=== PATIENT | female | born 1990 | race Caucasian/White ===

== ENCOUNTER 2017-09-17 22:10 | Emergency (ER) | payer MEDICAID, SELFPAY ==
[2017-09-17 22:11] VITALS: BP 131/68; PULSE 106; RESP 16; TEMP 36.7; O2SAT 100; BMI 25.2
--- NOTE | 2017-09-17 22:26 | ED.VISSUMM ---
- ER Visit Summary Date of Service: 09/17/17 Chief Complaint: [] Hoarse voice History of Present Illness: The patient is a 27 F complaining of a hoarse voice for the last 3 weeks. Intermittent. She has had a dry cough. Positive sick contacts and smokes cigarettes denies associated symptoms Physical Examination: Vital signs reviewed General: Well-nourished well-developed Head: Normocephalic atraumatic Eyes: Pupils equal round and reactive to light extraocular movements intact ENT: TMs clear no hemotympanum no trauma Neck: Nontender full range of motion Cardiovascular: Regular rate rhythm no murmurs normal S1-S2 Respiratory: No distress clear to auscultation bilaterally chest nontender Abdomen: Soft nontender nondistended normal bowel sounds no masses Back: Nontender no CVA tenderness Extremities: Nontender active range of motion ?4 extremities no trauma Skin: Normal color no trauma Neuro alert oriented cranial nerves II through XII intact normal strength sensation reflexes Test Results: [] Emergency Department Course and Treatment: [] Patient has a viral laryngitis. All questions answered. She will use symptomatic management. This will have to run its course. I do not feel she needs labs or imaging. Will be discharged to follow-up. Treatment Plan: [] Disposition: [] Impression: [] Viral laryngitis This note was generated with [employer] dictation software. It may contain incorrect words, spelling, and punctuation that were not noted in review of the chart prior to signing ED Disposition - Plan for ED Patient: Chief Complaint: Other, Pain/Inj Referrals: Care Physician,No Primary [Primary Care Provider] -
--- NOTE | 2017-09-17 22:27 | ED.DEP ---
ED Disposition - Plan for ED Patient: Disposition: Home or Assisted Living Chief Complaint: Other, Pain/Inj Instructions: ED Laryngitis Referrals: Care Physician,No Primary [Primary Care Provider] - Niko Cagle DO [NON CLINICAL AFFILIATE] -
[2017-09-17 22:38] VITALS: RESP 18
== END 2017-09-17 22:38 | disposition home or self-care (01) ==
PROVIDERS: Emergency Provider Emergency Medicine
DX: J04.0 Acute laryngitis (principal); Z72.0 Tobacco use
CPT/HCPCS: 99282

== ENCOUNTER 2017-12-22 22:52 | Emergency (ER) | payer MEDICAID, SELFPAY ==
[2017-12-22 22:53] VITALS: BP 116/70; PULSE 94; RESP 18; TEMP 36.9; O2SAT 97; BMI 26.6
--- NOTE | 2017-12-23 00:03 | CT_ITS ---
STUDY: CT BRAIN WITHOUT CONTRAST REASON FOR EXAM: Female, 27 years old. Headache RADIATION DOSAGE (If Supplied By Facility): CTDIvol = ( 44.99 ) mGy, DLP = ( 779.24 ) mGycm TECHNIQUE: Transaxial CT imaging of the brain was performed without administration of intravenous contrast material. Individualized dose optimization techniques were used for this CT. COMPARISON: None. FINDINGS: There is RIGHT parietal scalp swelling. There is NO skull fracture. Normal size ventricles and extra-axial spaces for the patient's age. Normal white matter tracts of the cerebral hemispheres. Normal basal ganglia and thalami. Normal brainstem. Normal cerebellum. There is no intracranial hemorrhage. There are no findings of an acute ischemic infarction. Normal visualized paranasal sinuses. CT/Brain/Head without Contrast IMPRESSION: There is RIGHT parietal scalp swelling. There is NO skull fracture. There is NO intracranial hemorrhage. Electronically Signed: Pawan Dutta MD at 1:57 EDT , Service support ,
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
--- NOTE | 2017-12-23 00:04 | RAD_ITS ---
STUDY: X-RAY CHEST REASON FOR EXAM: Female, 27 years old. Chest pain TECHNIQUE: PA and lateral COMPARISON: 07/22/2013 FINDINGS: The lungs are clear and expanded. There is no demonstrated pleural abnormality. Normal size heart. Normal mediastinum and jared. Normal visualized pulmonary arteries. Normal visualized aortic arch and descending thoracic aorta. Normal visualized thoracic spine. Normal visualized ribs, clavicles, and shoulders. There is no demonstrated abnormality of the visualized soft tissue structures of the upper abdomen. RAD/Chest PA and Lateral IMPRESSION: Normal x-ray examination of the chest. Electronically Signed: Pawan Dutta MD at 1:24 EDT , Service support ,
[2017-12-23] MEDS: Ondansetron ODT 4 MG Tablet PO (01:02)
[2017-12-23] MEDS: Acetaminophen 500 MG Tablet 1000 MG PO (01:02)
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
--- NOTE | 2017-12-23 02:14 | ED.DEP ---
ED Disposition - Plan for ED Patient: Disposition: Home or Assisted Living Chief Complaint: General Illness Instructions: ED Contusion Soft Tissue Referrals: Ronn Machado MD [STAFF PHYSICIAN] - 1 Week if not improving Additional Instructions: Ice to all sore areas. Tylenol and Motrin for pain.
[2017-12-23 02:23] VITALS: BP 110/70; PULSE 90; RESP 14; O2SAT 98
--- NOTE | 2017-12-23 02:24 | ED.RN ---
pt given written and verbal discharge instructions and educated on care at home. pt verbalizes understanding and denies any further questions. work note given per dr. boswell. pt ambulates to mothers car without assistance.
== END 2017-12-23 02:26 | disposition home or self-care (01) ==
PROVIDERS: Emergency Provider Emergency Medicine
DX: S09.90XA Unspecified injury of head, initial encounter (principal); S20.222A Contusion of left back wall of thorax, initial encounter; S20.221A Contusion of right back wall of thorax, initial encounter; S20.212A Contusion of left front wall of thorax, initial encounter; S20.211A Contusion of right front wall of thorax, initial encounter; Y09 Assault by unspecified means; Y93.9 Activity, unspecified; Y92.096 Garden or yard of other non-institutional residence as the place of occurrence of the external cause; Y99.9 Unspecified external cause status; Z72.0 Tobacco use
CPT/HCPCS: 70450; 71046; 72125; 99283; J2405

== ENCOUNTER 2018-09-06 20:31 | Emergency (ER) | payer MEDICAID, SELFPAY ==
[2018-09-06 20:32] VITALS: BP 115/72; PULSE 105; RESP 18; TEMP 36.8; O2SAT 97; BMI 27.8
--- NOTE | 2018-09-06 20:48 | ED.VISSUMM ---
- ER Visit Summary Date of Service: 09/06/18 Chief Complaint: Abscess History of Present Illness: The patient is a 28 F with a lump in her right axilla for 2 days. Physical Examination: Area is 1 cm x 3 cm, tender to palpation, erythematous. Test Results: None performed Emergency Department Course and Treatment: Area was anesthetized. I&D performed. Patient treated with Bactrim. Follow-up with primary care. Treatment Plan: As above Disposition: Discharge Impression: 1. Right axilla abscess This note was generated with [employer] dictation software. It may contain incorrect words, spelling, and punctuation that were not noted in review of the chart prior to signing ED Disposition - Plan for ED Patient: Referrals: Care Physician,No Primary [Primary Care Provider] -
[2018-09-06] MEDS: Smz/Tmp Ds Tablet 1 TABLET PO (20:55)
--- NOTE | 2018-09-06 21:32 | ED.DEP ---
ED Disposition - Plan for ED Patient: Instructions: ED Abscess IandD Prescriptions: Smz/Tmp Ds [Bactrim Ds] 1 tab PO BID 7 Days #14 tab Referrals: Angelica Ni [NON-STAFF] -
--- NOTE | 2018-09-06 21:55 | ED.RN ---
DISCHARGE INSTRUCTIONS GIVEN TO AND REVIEWED WITH PATIENT, PATIENT DENIES QUESTIONS OR CONCERNS AND VOICES UNDERSTANDING OF DISCHARGE INSTRUCTIONS. PT AMBULATES OUT OF ROOM WITHOUT DIFFICULTY.
== END 2018-09-06 21:56 | disposition home or self-care (01) ==
PROVIDERS: Emergency Provider Emergency Medicine
DX: L02.411 Cutaneous abscess of right axilla (principal)
CPT/HCPCS: 10060; 99283

== ENCOUNTER → 2018-10-28 17:33 | Outpatient (CLI) | payer MEDICAID, SELFPAY ==
[2018-10-28 20:01] LABS: Chlamydia Trachomatis by PCR Negative (Negative); Neisserai gonorrhoeae by PCR Negative (Negative); Probe Check PASS; Sample Adequacy Control PASS; Specimen Processing Control PASS
[2018-11-04 10:41] LABS: HPV HC, High Risk Positive (Negative); HPV Reflexed? YES, CHARGE PATIENT
== END ==
PROVIDERS: Visit Provider Obstetrics & Gynecology
DX: Z12.4 Encounter for screening for malignant neoplasm of cervix (principal); Z11.3 Encounter for screening for infections with a predominantly sexual mode of transmission
CPT/HCPCS: 87491; 87591; 87624; 88175; G0145

== ENCOUNTER → 2018-10-29 09:05 | Outpatient (CLI) | payer MEDICAID, SELFPAY | PROVIDERS: Referring Provider Obstetrics & Gynecology; Visit Provider Obstetrics & Gynecology | DX: Z12.4 Encounter for screening for malignant neoplasm of cervix (principal); Z11.3 Encounter for screening for infections with a predominantly sexual mode of transmission ==

== ENCOUNTER → 2019-05-12 16:55 | Outpatient (CLI) | payer MEDICAID, SELFPAY ==
[2019-05-20 12:55] LABS: Chlamydia By Nucleic Acid AMP Negative; Gonococcus By Nucleic Acid AMP Negative; HPV HC, High Risk Negative
== END ==
PROVIDERS: Referring Provider Obstetrics & Gynecology; Visit Provider Obstetrics & Gynecology
DX: R87.610 Atypical squamous cells of undetermined significance on cytologic smear of cervix (ASC-US) (principal); R87.810 Cervical high risk human papillomavirus (HPV) DNA test positive
CPT/HCPCS: 87491; 87591; 87623; 87624; 88175; G0145

== ENCOUNTER 2019-08-18 09:34 | Emergency (ER) | payer MEDICAID, SELFPAY ==
[2019-08-18 09:35] VITALS: BP 119/54; PULSE 82; RESP 18; TEMP 36.4; O2SAT 99; BMI 28.2
--- NOTE | 2019-08-18 10:04 | ED.DCSUM_ITS ---
- ER Visit Summary Date of Service: 08/18/19 Chief Complaint: [Skin feels like is burning] History of Present Illness: The patient is a 28 F [resents to the emergency department complaint of burning skin for the last 2 to 3 months. Patient was seen in urgent care today and referred to the ER. Patient also noticed a red rash on her arms and face that she thought was hives today. Patient denies any new soaps or detergents. She does not take any medications and is had no new medications. She denies any exposures to chemicals. She describes a mild sore throat. She is had no fevers. She denies illicit drug use. Patient has no medical history. Has had prior cholecystectomy and a tubal ligation. She currently does not have a primary care physician. 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 She states that she has been there for over a year and these issues just started happening a couple of months ago. Physical Examination: [HEENT-PERRLA, EOMI. Cranial nerves II through XII grossly intact. TMs clear. Mucous membranes moist. No adenopathy. No rashes or excoriations noted to the scalp. Cardiovascular-regular rate and rhythm without murmur or ectopy Lungs-clear to auscultation, chest wall stable without crepitus or subcu emphysema Abdomen-normoactive bowel sounds, soft, nontender, no rebound or rigidity, no peritoneal signs. Skin exam-patient has a faint slightly papular patchy rash involving the left upper extremity and face. The rash is not noted on the trunk or the lower extremities. Extremities-intact ?4, normal range of motion, normal pulses, atraumatic] Test Results: [CBC with differential obtained was normal. Chemistries unremarkable. LFTs were normal. TSH was 1.44. I did order a lead level however that is a send out and will have results for 3 to 5 days.] Emergency Department Course and Treatment: [She was treated with prednisone 40 mg p.o.] Treatment Plan: [She will be treated with prednisone and advised use Benadryl for itching. Patient to follow-up with dermatology within next 3 to 5 days. Etiology of her condition is unclear.] Disposition: [Discharged home in stable condition] Impression: [Dermatitis-etiology uncertain] This note was generated with [employer] dictation software. It may contain incorrect words, spelling, and punctuation that were not noted in review of the chart prior to signing ED Disposition - Plan for ED Patient: Referrals: Care Physician,No Primary [Primary Care Provider] -
[2019-08-18 10:05] LABS: Absolute Lymphocyte Count 1.78 X10^3/uL (0.83-4.51); Absolute Neutrophil Count 5.4 X10^3/uL (2.0-7.7); Basophil# 0.07 X10^3/uL; Basophil% 0.9 % (0-1); Eosinophil# 0.19 X10^3/uL; Eosinophils% 2.4 % (0-5); Hematocrit 41.4 % (37-47); Hemoglobin 13.6 g/dL (12.0-15.0); Lymphocyte # 1.78 X10^3/ul (4.0); Lymphocyte % 22.2 % (19-41); Mean Corp Hgb Conc 32.9 g/dL (32-36); Mean Corpuscular Hgb 30.6 pg (27.0-32.0); Mean Corpuscular Volume 93.2 fL (81-99); Mean Platelet Vol. 10.6 fl (6.2-12.0); Monocyte# 0.58 X10^3/uL; Monocyte% 7.2 % (0-10); NRBC Flagged by Analyzer 0 % (0-5); Neutrophil # 5.38 X10^3/uL (2.7-7.7); Neutrophil % 67.1 % (47-70); Platelet Count 226 K/mm3 (150-450); RBC Distribution Width CV 12.4 % (11.6-14.6); RBC Distribution Width SD 42.8 fl (35.1-43.9); Red Blood Count 4.44 M/mm3 (4.2-5.4)
[2019-08-18 10:30] LABS: ALB/GLOB Ratio 1.1 RATIO (0.9-2.4); AST(SGOT) 12 U/L (15-37); Alanine Aminotransfer ALT/SGPT 21 U/L (13-56); Albumin, Serum 3.9 g/dL (3.2-5.0); Alkaline Phosphatase 42 U/L (45-117); Anion Gap 5 (5-15); BUN 8 mg/dL (7-18); BUN/Creat Ratio 9.7 RATIO (10-20); Chloride 111 mmol/L (98-107); Creatinine, Serum 0.83 mg/dL (0.55-1.02); EST Glomerular Filtration Rate 87 mL/min (>60); Est Glom Filt Rate - Afr Amer 105 mL/min (>60); Globulin 3.4 g/dL (2.2-4.2); Glucose 92 mg/dL (74-106); Magnesium 1.9 mg/dL (1.6-2.6); Potassium 4.1 mmol/L (3.5-5.1); Protein, Total 7.3 g/dL (6.4-8.2); Sodium Level 140 mmol/L (136-145); Thyroid Stim Hormone (TSH) 1.44 uIU/mL (0.358-3.74)
--- NOTE | 2019-08-18 11:17 | ED.DEP ---
ED Disposition - Plan for ED Patient: Instructions: DERMATITIS, Non-Specific Prescriptions: Prednisone [Deltasone] 20 mg PO BID #10 tab Transmission Status: Pending to [facility] [place] Referrals: Care Physician,No Primary [Primary Care Provider] - Ellis Eugene MD [STAFF PHYSICIAN] - 3-5 Days
--- NOTE | 2019-08-18 11:36 | ED.RN ---
iv dc'ed, catheter intact, small gauze dressing placed. discharge instructions given to and reviewed with patient, patient denies questions or concerns and voices understanding of discharge instructions. pt ambulates out of room without difficulty.
[2019-08-19 20:20] LABS: Lead, Blood Adult 16+yrs 1 ug/dL (0-4)
== END 2019-08-18 11:36 | disposition home or self-care (01) ==
PROVIDERS: Emergency Provider Emergency Medicine
DX: L30.9 Dermatitis, unspecified (principal); Z90.49 Acquired absence of other specified parts of digestive tract; J02.9 Acute pharyngitis, unspecified
CPT/HCPCS: 80053; 83655; 83735; 84443; 85025; 96374; 99283; A4216

== ENCOUNTER 2020-06-29 08:27 | Emergency (ER) | payer MEDICAID, SELFPAY ==
[2020-06-29 08:28] VITALS: BP 120/79; PULSE 93; RESP 18; TEMP 36.6; O2SAT 98; BMI 25.0
--- NOTE | 2020-06-29 08:44 | CT_ITS ---
STUDY: CT ABDOMEN AND PELVIS WITH CONTRAST REASON FOR EXAM: Female, 29 years old. RT FLANK PAIN, VOMITING RADIATION DOSAGE (If Supplied By Facility): CTDIvol = ( 12.82 ) mGy, DLP = ( 772.94 ) mGycm TECHNIQUE: Transaxial images were obtained from the dome of the diaphragm to the symphysis pubis with oral contrast. Oral and amp; IV Gastrografin and amp; 100mL Isovue-300 was administered. Sagittal and coronal images were reconstructed. Individualized dose optimization techniques were used for this CT. COMPARISON: None. FINDINGS: There is a 4.3 mm noncalcified nodule in the peripheral lateral aspect of the left lower lobe as seen on axial image #5. A six-month follow-up examination is recommended. The visualized portions of the heart are within normal limits. Normal liver. Normal gallbladder and extrahepatic biliary system. Normal spleen. Normal pancreas. Normal bilateral adrenal glands. Normal right kidney. Normal left kidney. There is a small hiatal hernia. Normal small intestine. Normal colon. The appendix is visualized and appears normal. Normal abdominal aorta. Normal inferior vena cava. Normal retroperitoneum. Normal urinary bladder. Follicles are seen in both ovaries. There is a small umbilical hernia containing fat. Normal osseous structures. CT/Abdomen/Pelvis WITH Contrast IMPRESSION: 4.3 mm noncalcified nodule in the peripheral lateral aspect of the left lower lobe. A 12 month follow-up examination is recommended. Small umbilical hernia containing fat. Electronically Signed: Thompson Gagnon, at 11:04 EST , Service support ,
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
[2020-06-29 08:59] LABS: Bacteria 0 SEEN /hpf (None Seen); Mucous, Urine 0 SEEN /hpf (<or=2+); Red Blood Cells-Urine 0 SEEN /hpf (0-5); White Blood Cells 0 SEEN /hpf (0-5)
[2020-06-29 09:07] LABS: Color, Urine Yellow (Yellow); Glucose, Dipstick Normal (Normal); Ketone-Dipstick Negative (Negative); Leukocyte Esterase-Dipstick Negative /ul (Negative); Nitrite-Dipstick Negative (Negative); Occult Blood-Urine 10 /ul (Negative); Protein-Dipstick Negative (Negative); Specific Gravity, Urine 1.025 (1.002-1.030); Urine Bilirubin Dipstick Negative (Negative); Urine Clarity Clear (Clear); Urine Urobilinogen Normal (Normal)
[2020-06-29 09:08] LABS: Absolute Lymphocyte Count 2.27 X10^3/uL (0.83-4.51); Absolute Neutrophil Count 6.7 X10^3/uL (2.0-7.7); Basophil# 0.06 X10^3/uL; Basophil% 0.6 % (0-1); Eosinophil# 0.27 X10^3/uL; Eosinophils% 2.7 % (0-5); Hematocrit 42.3 % (37-47); Hemoglobin 14.2 g/dL (12.0-15.0); Lymphocyte # 2.27 X10^3/ul (4.0); Lymphocyte % 22.8 % (19-41); Mean Corp Hgb Conc 33.6 g/dL (32-36); Mean Corpuscular Hgb 31.6 pg (27.0-32.0); Mean Corpuscular Volume 94.2 fL (81-99); Mean Platelet Vol. 10.6 fl (6.2-12.0); Monocyte# 0.61 X10^3/uL; Monocyte% 6.1 % (0-10); NRBC Flagged by Analyzer 0 % (0-5); Neutrophil # 6.72 X10^3/uL (2.7-7.7); Neutrophil % 67.5 % (47-70); Platelet Count 245 K/mm3 (150-450); RBC Distribution Width CV 12.4 % (11.6-14.6); Red Blood Count 4.49 M/mm3 (4.2-5.4)
[2020-06-29 09:14] LABS: Squamous Epithelial Cells - UA 0-5 SEEN /hpf (5-10)
[2020-06-29] MEDS: 0.9% Normal Saline 1,000 ML 125 ML IV (09:14)
[2020-06-29 09:22] LABS: ALB/GLOB Ratio 1.2 RATIO (0.9-2.4); AST(SGOT) 17 U/L (15-37); Alanine Aminotransfer ALT/SGPT 31 U/L (13-56); Alkaline Phosphatase 42 U/L (45-117); Anion Gap 7 (5-15); BUN 12 mg/dL (7-18); BUN/Creat Ratio 13.9 RATIO (10-20); Calcium,Total 8.7 mg/dL (8.5-10.1); Chloride 109 mmol/L (98-107); Creatinine, Serum 0.87 mg/dL (0.55-1.02); EST Glomerular Filtration Rate 82 mL/min (>60); Est Glom Filt Rate - Afr Amer 99 mL/min (>60); Estimated Creatinine Clearance 85.85 ml/min; Globulin 3.3 g/dL (2.2-4.2); Glucose 92 mg/dL (74-106); Potassium 3.8 mmol/L (3.5-5.1); Protein, Total 7.3 g/dL (6.4-8.2); Sodium Level 139 mmol/L (136-145)
[2020-06-29 09:36] LABS: Internal QC Validated? YES +Cl - CLEAR BKGD; Pregnancy, Serum, hCG Quali. NEGATIVE Negative
[2020-06-29 09:44] LABS: Lactic Acid 0.7 mmol/L (0.4-1.9)
--- NOTE | 2020-06-29 11:14 | CM.ED ---
Social Work Consult: No PCP Met with patient in room. Introduced self and social director role. Patient agreeable to speak with this social director. Patient confirms to not have a PCP. Patient open to this social director providing patient with list of PCP's that are in-network with patient insurance. Patient denies any community needs/concerns. Patient reports I am busy. Patient states to be a single mom of two children (11 and 4). Patient denies any transportation concerns. Luis Alberto JACOBSON, HANNAH-S
--- NOTE | 2020-06-29 11:22 | ED.DEP ---
ED Disposition - Plan for ED Patient: Instructions: ED Abdominal Pain Unkn Cause Fem Referrals: Care Physician,No Primary [Primary Care Provider] - Additional Instructions: see your commissioning editor in 2-3 days You need a repeat CT of chest in one month to evaluate spot on lung
[2020-06-29 11:40] VITALS: RESP 17
== END 2020-06-29 11:42 | disposition home or self-care (01) ==
LOC: ED 09:34
PROVIDERS: Emergency Provider Emergency Medicine
DX: R10.9 Unspecified abdominal pain (principal); Z90.49 Acquired absence of other specified parts of digestive tract; Z72.0 Tobacco use
CPT/HCPCS: 74177; 80053; 81001; 83605; 84703; 85025; 96360; 96361; 99282; J7030; Q9967; A4216

== ENCOUNTER 2020-07-22 09:46 | Outpatient (RCR) | payer MEDICAID, SELFPAY ==
[2020-07-22 10:21] VITALS: BP 124/63; PULSE 74; TEMP 36.2; BMI 25.0
--- NOTE | 2020-07-22 11:52 | HP.PCM_ITS ---
(1) Ulcer of skin of breast Status: Acute Code(s): N61.1 - Abscess of the breast and nipple (2) Non-healing surgical wound Status: Acute Code(s): T81.89XA - Other complications of procedures, not elsewhere classified, initial encounter History of Present Illness Date of Service: 07/22/20 Chief Complaint: Left breast ulcer History of Wound: Patient reports to the wound healing center today, 07/22/2020, for an initial evaluation of a left breast ulcer. The patient has no significant past medical history. She is a former smoker. She states that about 3-1/2 weeks ago, she developed an abscess of her left breast, above the nipple. The abscess was red, warm, and tender. She was given a course of Bactrim, which she completed, but no improvement was noted in the abscess. 2 weeks ago, she underwent an I&D with Dr. Gotti. Following her I&D, no additional antibiotics were initiated. She was instructed to cleanse the left breast with soap and water and cover with gauze dressing. She was instructed not to wear a bra or perform any heavy lifting. She has been compliant with these orders. She has been off work since the I&D was performed 2 weeks ago. 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 The patient denies any fever, chills, nausea, vomiting, or diarrhea. She denies any increasing pain, redness, swelling, or purulent/malodorous drainage from affected area. Past Medical History Past Medical History: Chronic Problems (Last Updated 04/18/18 @ 17:01 by Eliza Mayes) GERD (gastroesophageal reflux disease) (Chronic) Surgical History: no surgical history Allergies/Adverse Reactions: Allergies meperidine HCl [From Demerol] Allergy (Verified 06/29/20 08:30) Low blood pressure Home Medications: Ambulatory Orders Medication Instructions Recorded NK 06/29/20 Smoking Status: Former smoker Review of Systems Constitutional: Denies: Chills, Fever, Malaise, Weakness, Fatigue Eyes: Denies: Pain, Vision Change HEENT: Denies: Difficulty Hearing, Difficulty Swallowing, Sinus Congestion Cardiovascular: Denies: Chest Pain, Palpitations Respiratory: Denies: Cough, Shortness of Breath Gastrointestinal: Denies: Diarrhea, Nausea, Vomiting Genitourinary: Denies: Dysuria, Hematuria Gynecological: Reports: Breast symptoms Musculoskeletal: Denies: Arm Pain, Muscle pain Skin: Reports: Wounds. Denies: Rash Neurological: Denies: Balance problems, Double vision, Slurred speech, Confusion Endocrine: Denies: Heat/ Cold Intolerance, Polydipsia, Polyuria Hematologic/ Lymphatic: Denies: Easy Bruising, Easy Bleeding - Physical Exam Vital Signs Temp Pulse BP 97.2 F L 74 124/63 H 07/22/20 10:21 07/22/20 10:21 07/22/20 10:21 General: Alert, Cooperative, No apparent distress HEENT: Atraumatic, Normocephalic Oral: Moist Mucosa Neck: Supple, Trachea Midline Lungs: Clear to auscultation, Normal air movement, No rhonchi, No wheeze, No rales Cardiovascular: Regular rate, Regular Rhythm Abdomen: Bowel Sounds Present, Soft, Non Tender, Non-Distended Extremities: No clubbing, No cyanosis, No edema, Capillary Refill Less than 3 Seconds Skin: Ulcer/ Wound - Ulcer of left breast subcutaneous layer exposed. Minimal slough and devitalized tissue present. Good granulation tissue is present. No periulcer erythema, warmth, tenderness to touch. No purulent/malodorous drainage. Wound Measurements and Assessment WC - Nurse 1 - General Ulcer Measurement Start: 07/22/20 10:21 Freq: Status: Active Protocol: Activity Type Activity Date Activity User E-Sign Co-Sign Detail Recorded Client Recorded Date Recorded By Document 07/22/20 10:21 ANDREA [id number] 07/22/20 10:38 ANDREA 07/22/20 10:21 Wound Center Nurse 1 [Ulcer Assessment] # 1 Left Breast -Current Size (cm) - Length 2.1 -Current Size (cm) - Width 5.4 -Current Size (cm) - Depth 0.2 -Total Square Cm 11.34 -Exudate Amt Medium -Exudate Type Serosanguineous -Wound Margin Distinct, Outline Attached -Granulation Amt Large (67-100%) -Granulation Quality Red -Texture (Pooja-wound Skin Appearance) Assessed, Scarring -Moisture (Pooja-wound Skin Appearance No Abnormality, ) Assessed -Color (Pooja-wound Skin Appearance) No Abnormality, Assessed -Temperature (Pooja-wound Skin No Abnormality Appearance) (Pt Warm) -Tenderness on Palpation (Pooja-wound No Skin Appearance) -Ulcer Cleansing Rinsed/ Irrigated with Saline -Foul Odor after Cleansing No -Anesthetic Used 4% Lidocaine Solution - Nurse 3 - General Ulcer D/C NN Start: 07/22/20 10:21 Freq: Status: Active Protocol: Activity Type Activity Date Activity User E-Sign Co-Sign Detail Recorded Client Recorded Date Recorded By Document 07/22/20 11:08 MS [id number] 07/22/20 11:12 MS 07/22/20 11:08 Wound Care Nurse 3 [Wound Dressing] -Ulcer Cleansing Rinsed/ Irrigated with Saline -Foul Odor after Cleansing No -Negative Pressure Wound Therapy N/A -Primary Dressing Applied Aquacel AG 4x4 -Primary Dressing Covered/Secured Dry Gauze with -Aquacel AG 4x4 1 Pain Scale: 0-10 Numeric [Pain] -Is Patient Pain Free? Yes - Visit Discharge [Visit Discharge Information] -Discharge Condition Stable -Ambulatory Status Ambulatory -Medication Reconcilliation completed No & provided to patient/care provider -Clinical Summary of Care Provided Yes Musculoskeletal: No Muscle Wasting Neurological: Cranial nerves II-XII grossly intact Psych/Mental Status: Normal Affect, Appropriate Debridement Note Post-Debridement Measurements/Treatment - Nurse 3 - General Ulcer D/C NN Start: 07/22/20 10:21 Freq: Status: Active Protocol: Activity Type Activity Date Activity User E-Sign Co-Sign Detail Recorded Client Recorded Date Recorded By Document 07/22/20 11:08 MS [id number] 07/22/20 11:12 MS 07/22/20 11:08 Wound Care Nurse 3 # 1 Left Breast -Ulcer Cleansing Rinsed/ Irrigated with Saline -Foul Odor after Cleansing No -Negative Pressure Wound Therapy N/A -Primary Dressing Applied Aquacel AG 4x4 -Primary Dressing Covered/Secured with Dry Gauze -Aquacel AG 4x4 1 Pain Scale: 0-10 Numeric Is Patient Pain Free? Yes WC - Visit Discharge Discharge Condition Stable Ambulatory Status Ambulatory Medication Reconcilliation completed & No provided to patient/care provider Clinical Summary of Care Provided Yes Wound debrided: Left breast Laterality: Left Type of Debridement: Excisional debridement Anesthesia Used: 4% Lidocaine Solution Depth: in the subcutaneous layer Percentage of wound debrided: 100 Instrument Used: 5mm curette Tissue Removed: Slough and devitalized tissue Severity: Fat Layer Exposed Amount of bleeding with debridement: Moderate Bleeding Controlled with: Compression and gauze Patient tolerated procedure well Assessment/Plan Active Problems (Last Updated 04/18/18 @ 17:01 by Eliza Mayes) Ulcer of skin of breast (Acute) Non-healing surgical wound (Acute) Assessment: See above Plan: Debridement performed today in clinic. Aquacel Ag applied. At home wound-care instructions: Cleanse the left breast ulcer daily with antibacterial soap and water. Apply a new Aquacel Ag dressing after cleansing. Change dressing more frequently if contaminated. Compression: The patient instructed to wear a light compression sports bra, to avoid friction of breast ulcer against her clothing. Instructed to pad the sports bra with an ABD pad for adde d protection. Diet: Patient encouraged to increase protein and vitamin C intake. Labs/cultures/imaging: Cultures ordered and collected today. Routine baseline labwork ordered. Follow-up: Return to clinic in 1 week for re- evaluation. Return sooner or report to the emergency room should symptoms worsen, or new symptoms arise. The patient was given a work excuse to be off from work until her next appointment at the wound center next week. We will reassess her ability to return to work at her next appointment. Office Visits / Consults: [id number] OV L4 New [id number]: [id number] Jessie subq tissue 20 sq cm/<
== END 2020-07-24 23:59 ==
LOC: WC 09:46
PROVIDERS: Referring Provider Surgery; Visit Provider Nurse Practitioner Family
DX: T81.89XA Other complications of procedures, not elsewhere classified, initial encounter (principal); N61.1 Abscess of the breast and nipple; K21.9 Gastro-esophageal reflux disease without esophagitis; Z87.891 Personal history of nicotine dependence; Z88.5 Allergy status to narcotic agent
CPT/HCPCS: 11042; 87070; 87075; 87077; 87186; 87205; 99213; G0463

== ENCOUNTER 2020-08-19 09:15 | Outpatient (RCR) | payer MEDICAID, SELFPAY ==
[2020-07-25 00:41] VITALS: BP 124/63; PULSE 74; TEMP 36.2
[2020-08-05 10:33] VITALS: BP 108/60; PULSE 74; TEMP 36.2; BMI 25.0
--- NOTE | 2020-08-05 12:48 | PCM.WC.PN ---
(1) Non-healing surgical wound Status: Acute Code(s): T81.89XA - Other complications of procedures, not elsewhere classified, initial encounter (2) Ulcer of skin of breast Status: Acute Code(s): N61.1 - Abscess of the breast and nipple Type of Wound Date of Service: 08/05/20 Chief Complaint: Left breast ulcer History of Wound: Patient reports to the wound healing center today, 07/22/2020, for an initial evaluation of a left breast ulcer. The patient has no significant past medical history. She is a former smoker. She states that about 3-1/2 weeks ago, she developed an abscess of her left breast, above the nipple. The abscess was red, warm, and tender. She was given a course of Bactrim, which she completed, but no improvement was noted in the abscess. 2 weeks ago, she underwent an I&D with Dr. Gotti. Following her I&D, no additional antibiotics were initiated. She was instructed to cleanse the left breast with soap and water and cover with gauze dressing. She was instructed not to wear a bra or perform any heavy lifting. She has been compliant with these orders. She has been off work since the I&D was performed 2 weeks ago. 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 The patient denies any fever, chills, nausea, vomiting, or diarrhea. She denies any increasing pain, redness, swelling, or purulent/malodorous drainage from affected area. Progress of Wound: The patient's wound is significantly improved in size and appearance. She has been compliant with the use of Aquacel Ag dressing changes. The patient denies any fever, chills, nausea, vomiting, or diarrhea. Denies any increasing pain, redness, swelling, or purulent/malodorous drainage from affected area. She has resumed work. She is avoiding heavy lifting and overhead lifting due to pulling sensation at site of breast ulcer. She is chosen not to wear a lightly compressive bra due to friction. Wound cultures from 07/22/2020 were significant for 1+ Staphylococcus epidermidis and rare corynebacterium minutissimum, which I suspect represent contamination. Antibiotics were deferred. We will continue to monitor. - Physical Exam Vital Signs Temp Pulse BP 97.1 F L 74 108/60 08/05/20 10:33 08/05/20 10:33 08/05/20 10:33 General: Alert, Cooperative, No apparent distress Oral: Moist Mucosa Lungs: Normal air movement Extremities: Capillary Refill Less than 3 Seconds Skin: Ulcer/ Wound - Ulcer of left breast with subcutaneous layer exposed. Scant amount of slough and devitalized tissue present. Good granulation tissue is present. No periulcer erythema, warmth, or tenderness to touch. No purulent/malodorous drainage. Wound Measurements and Assessment WC - Nurse 1 - General Ulcer Measurement Start: 08/05/20 10:32 Freq: Status: Active Protocol: Activity Type Activity Date Activity User E-Sign Co-Sign Detail Recorded Client Recorded Date Recorded By Document 08/05/20 10:33 KR [id number] 08/05/20 10:38 KR 08/05/20 10:33 Wound Center Nurse 1 [Ulcer Assessment] # 1 Left Breast -Current Size (cm) - Length 0.5 -Current Size (cm) - Width 1 -Current Size (cm) - Depth 0.1 -Total Square Cm 0.5 -Exudate Amt Medium -Exudate Type Serosanguineous -Wound Margin Distinct, Outline Attached -Granulation Amt Small (1-33%) -Granulation Quality Red -Necrosis Amt None Present (0 %) -Texture (Pooja-wound Skin Appearance) Assessed, Scarring -Moisture (Pooja-wound Skin Appearance No Abnormality, ) Assessed -Color (Pooja-wound Skin Appearance) No Abnormality, Assessed -Temperature (Pooja-wound Skin No Abnormality Appearance) (Pt Warm) -Tenderness on Palpation (Pooja-wound No Skin Appearance) -Ulcer Cleansing Rinsed/ Irrigated with Saline -Foul Odor after Cleansing No -Anesthetic Used 4% Lidocaine Solution WC - Nurse 2 - General Ulcer CM Notes Start: 08/05/20 10:32 Freq: Status: Active Protocol: Activity Type Activity Date Activity User E-Sign Co-Sign Detail Recorded Client Recorded Date Recorded By Document 08/05/20 12:30 PL [id number] 08/05/20 12:31 PL 08/05/20 12:30 Wound Center Nurse 2 [Procedure/Treatment] -Time 11:08 -Correct Patient Yes -Correct Side, Site, Position Yes -Correct Procedure Yes -Procedure Performed Yes -Type of Procedure Debridement -Clinical Debridement Subcutaneous -Tissue Removed Subcutaneous -Post Debridement (cm) - Length 3.7 -Post Debridement (cm) - Width 0.5 -Post Debridement (cm) - Depth 0.2 -Total Square (Post) (cm) 1.85 -Area of Debridement (cm) - Length 3.7 -Area of Debridement (cm) - Width 0.5 -Total Square (Area) (cm) 1.85 -Tunneling No -Undermining/Tunneling No -Circular Undermining No -Wound/Ulcer Outcome Not Healed -Ulcer Cleansing Rinsed/ Irrigated with Saline -Foul Odor after Cleansing No -Bioengineered Tissue No -Debridement - Subq, 1st 20sq cm Yes [See Physician Procedure note for Specifics] Pain Scale: 0-10 Numeric [Pain] -Is Patient Pain Free? Yes - Nurse 3 - General Ulcer D/C NN Start: 08/05/20 10:32 Freq: Status: Active Protocol: Activity Type Activity Date Activity User E-Sign Co-Sign Detail Recorded Client Recorded Date Recorded By Document 08/05/20 11:36 ANDREA [id number] 08/05/20 11:37 ANDREA 08/05/20 11:36 Wound Care Nurse 3 [Wound Dressing] # 1 Left Breast -Ulcer Cleansing Rinsed/ Irrigated with Saline -Foul Odor after Cleansing No -Primary Dressing Applied Aquacel Extra -Primary Dressing Covered/Secured Dry Gauze, with Secured with Tape -Aquacel Extra 1 Pain Scale: 0-10 Numeric [Pain] -Is Patient Pain Free? Yes - Visit Discharge [Visit Discharge Information] -Discharge Condition Stable -Ambulatory Status Ambulatory -Transportation Private Auto Psych/Mental Status: Normal Affect, Appropriate Debridement Note Post-Debridement Measurements/Treatment - Nurse 2 - General Ulcer CM Notes Start: 08/05/20 10:32 Freq: Status: Active Protocol: Activity Type Activity Date Activity User E-Sign Co-Sign Detail Recorded Client Recorded Date Recorded By Document 08/05/20 12:30 HERNÁN [id number] 08/05/20 12:31 PL 08/05/20 12:30 Wound Center Nurse 2 # 1 Left Breast -Time 11:08 -Correct Patient Yes -Correct Side, Site, Position Yes -Correct Procedure Yes -Procedure Performed Yes -Type of Procedure Debridement -Clinical Debridement Subcutaneous -Tissue Removed Subcutaneous -Post Debridement (cm) - Length 3.7 -Post Debridement (cm) - Width 0.5 -Post Debridement (cm) - Depth 0.2 -Total Square (Post) (cm) 1.85 -Area of Debridement (cm) - Length 3.7 -Area of Debridement (cm) - Width 0.5 -Total Square (Area) (cm) 1.85 -Tunneling No -Undermining/Tunneling No -Circular Undermining No -Wound/Ulcer Outcome Not Healed -Ulcer Cleansing Rinsed/ Irrigated with Saline -Foul Odor after Cleansing No -Bioengineered Tissue No -Debridement - Subq, 1st 20sq cm Yes Pain Scale: 0-10 Numeric Is Patient Pain Free? Yes - Nurse 3 - General Ulcer D/C NN Start: 08/05/20 10:32 Freq: Status: Active Protocol: Activity Type Activity Date Activity User E-Sign Co-Sign Detail Recorded Client Recorded Date Recorded By Document 08/05/20 11:36 ANDREA [id number] 08/05/20 11:37 ANDREA 08/05/20 11:36 Wound Care Nurse 3 # 1 Left Breast -Ulcer Cleansing Rinsed/ Irrigated with Saline -Foul Odor after Cleansing No -Primary Dressing Applied Aquacel Extra -Primary Dressing Covered/Secured with Dry Gauze, Secured with Tape -Aquacel Extra 1 Pain Scale: 0-10 Numeric Is Patient Pain Free? Yes WC - Visit Discharge Discharge Condition Stable Ambulatory Status Ambulatory Transportation Private Auto Wound debrided: Left breast Laterality: Left Type of Debridement: Excisional debridement Anesthesia Used: 4% Lidocaine Solution Depth: in the subcutaneous layer Percentage of wound debrided: 100 Instrument Used: 3mm curette Tissue Removed: Slough and devitalized tissue Severity: Fat Layer Exposed Amount of bleeding with debridement: Mild Bleeding Controlled with: Compression and gauze Patient tolerated procedure well Assessment/Plan Assessment: See above Plan: Debridement performed today in clinic. Aquacel Ag applied. At home wound-care instructions: Cleanse the left breast ulcer daily with antibacterial soap and water. Apply a new Aquacel Ag dressing after cleansing. Change dressing more frequently if contaminated. Compression: The patient was previously instructed to wear a light compression sports bra, to avoid friction of breast ulcer against her clothing, but felt this caused more friction than not wearing a bra at all. She may continue to avoid wearing a bra. Diet: Patient encouraged to increase protein and vitamin C intake. Labs/cultures/imaging: Wound cultures from 07/22/2020 were significant for 1+ Staphylococcus epidermidis and rare corynebacterium minutissimum, which I suspect represent contamination. Antibiotics were deferred. We will continue to monitor. Follow-up: Return to clinic in 1 week for re-evaluation. Return sooner or report to the emergency room should symptoms worsen, or new symptoms arise. The patient was given a work excuse for today. She has resumed working. She has avoided overhead lifting and heavy lifting. I will have her continue to avoid lifting greater than 20 pounds and to avoid overhead lifting. Note: [employer] speech recognition shipping and receiving specialist software was used to create portions of this document. Sound-alike and misspelled words, as well as other shipping and receiving specialist errors may be contained in the documentation. [id number]: [id number] Jessie subq tissue 20 sq cm/<
--- NOTE | 2020-08-12 10:04 | PCM.WC.PN ---
(1) Non-healing surgical wound Status: Acute Code(s): T81.89XA - Other complications of procedures, not elsewhere classified, initial encounter (2) Ulcer of skin of breast Status: Acute Code(s): N61.1 - Abscess of the breast and nipple Type of Wound Date of Service: 08/12/20 Chief Complaint: Left breast ulcer History of Wound: Patient reports to the wound healing center today, 07/22/2020, for an initial evaluation of a left breast ulcer. The patient has no significant past medical history. She is a former smoker. She states that about 3-1/2 weeks ago, she developed an abscess of her left breast, above the nipple. The abscess was red, warm, and tender. She was given a course of Bactrim, which she completed, but no improvement was noted in the abscess. 2 weeks ago, she underwent an I&D with Dr. Gotti. Following her I&D, no additional antibiotics were initiated. She was instructed to cleanse the left breast with soap and water and cover with gauze dressing. She was instructed not to wear a bra or perform any heavy lifting. She has been compliant with these orders. She has been off work since the I&D was performed 2 weeks ago. 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 The patient denies any fever, chills, nausea, vomiting, or diarrhea. She denies any increasing pain, redness, swelling, or purulent/malodorous drainage from affected area. Progress of Wound: The patient's wound is again significantly improved in size and appearance. She has been compliant with the use of Aquacel Ag dressing changes. The patient denies any fever, chills, nausea, vomiting, or diarrhea. Denies any increasing pain, redness, swelling, or purulent/malodorous drainage from affected area. She has resumed work. She is avoiding heavy lifting and overhead lifting due to pulling sensation at site of breast ulcer. She has chosen not to wear a lightly compressive bra due to friction. This is reasonable. Wound cultures from 07/22/2020 were significant for 1+ Staphylococcus epidermidis and rare corynebacterium minutissimum, which I suspect represent contamination. Antibiotics were deferred. We will continue to monitor. - Physical Exam Vital Signs Temp Pulse BP 97.1 F L 74 108/60 08/05/20 10:33 08/05/20 10:33 08/05/20 10:33 General: Alert, Cooperative, No apparent distress HEENT: Atraumatic, Normocephalic Oral: Moist Mucosa Lungs: Normal air movement Skin: Ulcer/ Wound - Left breast ulcer with subcutaneous layer exposed. No periulcer erythema, warmth or tenderness. No purulent/malodorous drainage. Psych/Mental Status: Normal Affect, Appropriate Debridement Note Post-Debridement Measurements/Treatment WC - Nurse 2 - General Ulcer CM Notes Start: 08/05/20 10:32 Freq: Status: Active Protocol: Activity Type Activity Date Activity User E-Sign Co-Sign Detail Recorded Client Recorded Date Recorded By Document 08/05/20 12:30 PL [id number] 08/05/20 12:31 PL 08/05/20 12:30 Wound Center Nurse 2 # 1 Left Breast -Time 11:08 -Correct Patient Yes -Correct Side, Site, Position Yes -Correct Procedure Yes -Procedure Performed Yes -Type of Procedure Debridement -Clinical Debridement Subcutaneous -Tissue Removed Subcutaneous -Post Debridement (cm) - Length 3.7 -Post Debridement (cm) - Width 0.5 -Post Debridement (cm) - Depth 0.2 -Total Square (Post) (cm) 1.85 -Area of Debridement (cm) - Length 3.7 -Area of Debridement (cm) - Width 0.5 -Total Square (Area) (cm) 1.85 -Tunneling No -Undermining/Tunneling No -Circular Undermining No -Wound/Ulcer Outcome Not Healed -Ulcer Cleansing Rinsed/ Irrigated with Saline -Foul Odor after Cleansing No -Bioengineered Tissue No -Debridement - Subq, 1st 20sq cm Yes Pain Scale: 0-10 Numeric Is Patient Pain Free? Yes - Nurse 3 - General Ulcer D/C NN Start: 08/05/20 10:32 Freq: Status: Active Protocol: Activity Type Activity Date Activity User E-Sign Co-Sign Detail Recorded Client Recorded Date Recorded By Document 08/05/20 11:36 KR [id number] 08/05/20 11:37 KR 08/05/20 11:36 Wound Care Nurse 3 # 1 Left Breast -Ulcer Cleansing Rinsed/ Irrigated with Saline -Foul Odor after Cleansing No -Primary Dressing Applied Aquacel Extra -Primary Dressing Covered/Secured with Dry Gauze, Secured with Tape -Aquacel Extra 1 Pain Scale: 0-10 Numeric Is Patient Pain Free? Yes WC - Visit Discharge Discharge Condition Stable Ambulatory Status Ambulatory Transportation Private Auto Wound debrided: Left breast ulcer Laterality: Left Type of Debridement: Excisional debridement Anesthesia Used: 4% Lidocaine Solution Depth: in the subcutaneous layer Percentage of wound debrided: 100 Instrument Used: 3mm curette Tissue Removed: Slough and devitalized tissue Severity: Fat Layer Exposed Amount of bleeding with debridement: Mild Bleeding Controlled with: Pressure Patient tolerated procedure well Assessment/Plan Active Problems (Last Updated 04/18/18 @ 17:01 by Eliza Mayes) Ulcer of skin of breast (Acute) Non-healing surgical wound (Acute) Assessment: See above Plan: Debridement performed today in clinic. Promogran applied. At home wound-care instructions: Cleanse the left breast periulcer area daily with antibacterial soap and water. Apply a new Promogran dressing after cleansing. Compression: The patient was previously instructed to wear a light compression sports bra, to avoid friction of breast ulcer against her clothing, but felt this caused more friction than not wearing a bra at all. She may continue to avoid wearing a bra. Diet: Patient encouraged to increase protein and vitamin C intake. Labs/cultures/imaging: Wound cultures from 07/22/2020 were significant for 1+ Staphylococcus epidermidis and rare corynebacterium minutissimum, which I suspect represent contamination. Antibiotics were deferred. We will continue to monitor. Follow-up: Return to clinic in 1 week for re-evaluation. Return sooner or report to the emergency room should symptoms worsen, or new symptoms arise. The patient was given a work excuse for today. She has resumed working. She has avoided overhead lifting and heavy lifting. I will have her continue to avoid lifting greater than 20 pounds and to avoid overhead lifting. Note: [employer] speech recognition power hammer operator software was used to create portions of this document. Sound-alike and misspelled words, as well as other power hammer operator errors may be contained in the documentation. [id number]: [id number] Jessie subq tissue 20 sq cm/<
[2020-08-12 10:14] VITALS: BP 104/58; PULSE 86; RESP 17; TEMP 36.7; BMI 25.0
[2020-08-19 09:15] VITALS: BP 102/49; PULSE 74; TEMP 36.1; BMI 25.0
--- NOTE | 2020-08-19 11:38 | PN.PCM_ITS ---
(1) Non-healing surgical wound Status: Resolved Code(s): T81.89XA - Other complications of procedures, not elsewhere classified, initial encounter (2) Ulcer of skin of breast Status: Resolved Code(s): N61.1 - Abscess of the breast and nipple Type of Wound Date of Service: 08/19/20 Chief Complaint: Left breast ulcer History of Wound: Patient reports to the wound healing center today, 07/22/2020, for an initial evaluation of a left breast ulcer. The patient has no significant past medical history. She is a former smoker. She states that about 3-1/2 weeks ago, she developed an abscess of her left breast, above the nipple. The abscess was red, warm, and tender. She was given a course of Bactrim, which she completed, but no improvement was noted in the abscess. 2 weeks ago, she underwent an I&D with Dr. Gotti. Following her I&D, no additional antibiotics were initiated. She was instructed to cleanse the left breast with soap and water and cover with gauze dressing. She was instructed not to wear a bra or perform any heavy lifting. She has been compliant with these orders. She has been off work since the I&D was performed 2 weeks ago. 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 The patient denies any fever, chills, nausea, vomiting, or diarrhea. She denies any increasing pain, redness, swelling, or purulent/malodorous drainage from affected area. Progress of Wound: The patient's left breast ulcer is healed today (08/19/2020). The patient denies any fever, chills, nausea, vomiting, or diarrhea. Denies any increasing pain, redness, swelling, or drainage from affected area. She has resumed work. She is avoiding heavy lifting and overhead lifting due to pulling sensation at site of breast ulcer. She has chosen not to wear a lightly compressive bra due to friction. This is reasonable. Wound cultures from 07/22/2020 were significant for 1+ Staphylococcus epidermidis and rare corynebacterium minutissimum, which I suspect represent contamination. Antibiotics were deferred. - Physical Exam Vital Signs Temp Pulse Resp BP 97.0 F L 74 17 102/49 L 08/19/20 09:15 08/19/20 09:15 08/12/20 10:14 08/19/20 09:15 General: Alert, Cooperative, No apparent distress HEENT: Atraumatic, Normocephalic Oral: Moist Mucosa Neck: Trachea Midline Lungs: Normal air movement Extremities: Capillary Refill Less than 3 Seconds Skin: Ulcer/ Wound - Left breast ulcer healed today Wound Measurements and Assessment - Nurse 1 - General Ulcer Measurement Start: 08/05/20 10:32 Freq: Status: Discharge Protocol: Activity Type Activity Date Activity User E-Sign Co-Sign Detail Recorded Client Recorded Date Recorded By Document 08/19/20 09:15 KR [id number] 08/19/20 09:19 KR Edit Status 08/19/20 09:54 BKG DAEMON Active=>Discharge [facility] 08/19/20 09:54 BKG DAEMON 08/19/20 09:15 Wound Center Nurse 1 [Ulcer Assessment] # 1 Left Breast -Current Size (cm) - Length 0.1 -Current Size (cm) - Width 0.1 -Current Size (cm) - Depth 0.1 -Total Square Cm 0.01 -Exudate Amt None Present -Wound Margin Distinct, Outline Attached -Granulation Amt None Present (0 %) -Necrosis Amt None Present (0 %) -Texture (Pooja-wound Skin Appearance) Assessed, Scarring -Moisture (Pooja-wound Skin Appearance No Abnormality, ) Assessed -Color (Pooja-wound Skin Appearance) Assessed,Not Assessed -Temperature (Pooja-wound Skin No Abnormality Appearance) (Pt Warm) -Tenderness on Palpation (Pooja-wound No Skin Appearance) -Ulcer Cleansing Rinsed/ Irrigated with Saline -Foul Odor after Cleansing No -Anesthetic Used 4% Lidocaine Solution - Nurse 2 - General Ulcer CM Notes Start: 08/05/20 10:32 Freq: Status: Discharge Protocol: Activity Type Activity Date Activity User E-Sign Co-Sign Detail Recorded Client Recorded Date Recorded By Document 08/19/20 09:51 PL [id number] 08/19/20 09:52 PL Edit Status 08/19/20 09:54 BKG DAEMON Active=>Discharge [id number] 08/19/20 09:54 BKG DAEMON 08/19/20 09:51 Wound Center Nurse 2 [Procedure/Treatment] -Procedure Performed No -Wound/Ulcer Outcome Healed- Epithelialized [See Physician Procedure note for Specifics] Pain Scale: 0-10 Numeric [Pain] -Is Patient Pain Free? Yes - Nurse 3 - General Ulcer D/C NN Start: 08/05/20 10:32 Freq: Status: Discharge Protocol: Activity Type Activity Date Activity User E-Sign Co-Sign Detail Recorded Client Recorded Date Recorded By Document 08/19/20 09:50 KR [id number] 08/19/20 09:51 KR Edit Status 08/19/20 09:54 BKG DAEMON Active=>Discharge [id number] 08/19/20 09:54 BKG DAEMON 08/19/20 09:50 Wound Care Nurse 3 [Wound Dressing] # 1 Left Breast -Primary Dressing Applied C Hydrogel ($) -Primary Dressing Covered/Secured Dry Gauze, with Secured with Tape Pain Scale: 0-10 Numeric [Pain] -Is Patient Pain Free? Yes - Visit Discharge [Visit Discharge Information] -Discharge Condition Stable -Ambulatory Status Ambulatory -Transportation Private Auto Psych/Mental Status: Normal Affect, Appropriate Debridement Note Post-Debridement Measurements/Treatment WC - Nurse 2 - General Ulcer CM Notes Start: 08/05/20 10:32 Freq: Status: Discharge Protocol: Activity Type Activity Date Activity User E-Sign Co-Sign Detail Recorded Client Recorded Date Recorded By Document 08/05/20 12:30 PL [id number] 08/05/20 12:31 PL Document 08/12/20 14:54 PL [id number] 08/12/20 14:55 PL Document 08/19/20 09:51 PL [id number] 08/19/20 09:52 PL 08/05/20 08/12/20 08/19/20 12:30 14:54 09:51 Wound Center Nurse 2 # 1 Left Breast -Time 11:08 09:00 -Correct Patient Yes Yes -Correct Side, Site, Position Yes Yes -Correct Procedure Yes Yes -Procedure Performed Yes Yes No -Type of Procedure Debridement Debridement -Clinical Debridement Subcutaneous Subcutaneous -Tissue Removed Subcutaneous Subcutaneous -Post Debridement (cm) - Length 3.7 0.1 -Post Debridement (cm) - Width 0.5 0.1 -Post Debridement (cm) - Depth 0.2 0.3 -Total Square (Post) (cm) 1.85 0.01 -Area of Debridement (cm) - Length 3.7 0.1 -Area of Debridement (cm) - Width 0.5 0.1 -Total Square (Area) (cm) 1.85 0.01 -Tunneling No No -Undermining/Tunneling No No -Circular Undermining No No -Wound/Ulcer Outcome Not Healed Not Healed Healed- Epithelialized -Ulcer Cleansing Rinsed/ Rinsed/ Irrigated with Irrigated with Saline Saline -Foul Odor after Cleansing No No -Bioengineered Tissue No No -Debridement - Subq, 1st 20sq cm Yes Yes Pain Scale: 0-10 Numeric Is Patient Pain Free? Yes Yes Yes - Nurse 3 - General Ulcer D/C NN Start: 08/05/20 10:32 Freq: Status: Discharge Protocol: Activity Type Activity Date Activity User E-Sign Co-Sign Detail Recorded Client Recorded Date Recorded By Document 08/05/20 11:36 KR [id number] 08/05/20 11:37 KR Document 08/19/20 09:50 KR [id number] 08/19/20 09:51 KR 08/05/20 08/19/20 11:36 09:50 Wound Care Nurse 3 # 1 Left Breast -Ulcer Cleansing Rinsed/ Irrigated with Saline -Foul Odor after Cleansing No -Primary Dressing Applied Aquacel Extra C Hydrogel ($) -Primary Dressing Covered/Secured with Dry Gauze, Dry Gauze, Secured with Secured with Tape Tape -Aquacel Extra 1 Pain Scale: 0-10 Numeric Is Patient Pain Free? Yes Yes WC - Visit Discharge Discharge Condition Stable Stable Ambulatory Status Ambulatory Ambulatory Transportation Private Auto Private Auto No debridement was completed today Assessment/Plan Assessment: See above Plan: The patient's left breast ulcer is healed today. She was instructed to continue avoidance of lifting greater than 20 pounds and avoidance of overhead lifting for an additional 2 weeks before returning to regular work duties. If she is unable to tolerate return to regular work duties, she was instructed to contact the wound healing center for additional guidance. She was also instructed to wear a tightly compressive sports bra if engaging in intense physical activity. She was advised to avoid intense physical activity for the next 4 weeks. She was advised to perform daily massage of the scar tissue of her left breast to aid in healing of the scar. She was advised to follow-up with wound healing center as needed. Note: [employer] speech recognition t ranscription software was used to create portions of this document. Sound-alike and misspelled words, as well as other drone software development engineer errors may be contained in the documentation. Office Visits / Consults: [id number] OV L3 Est
== END 2020-08-19 09:54 | disposition home or self-care (01) ==
LOC: WC 09:15
PROVIDERS: Referring Provider Surgery; Visit Provider Nurse Practitioner Family
DX: T81.89XA Other complications of procedures, not elsewhere classified, initial encounter (principal); N61.1 Abscess of the breast and nipple; Z87.891 Personal history of nicotine dependence
CPT/HCPCS: 11042; 99213; G0463

== ENCOUNTER 2020-10-21 10:47 | Outpatient (RCR) | payer MEDICAID, SELFPAY ==
[2020-10-21 11:11] VITALS: BP 116/67; PULSE 101; TEMP 36.4; BMI 25.0
--- NOTE | 2020-10-21 15:12 | PCM.WC.HP ---
History of Present Illness Date of Service: 10/21/20 Chief Complaint: Left breast ulcer reopened History of Wound: Patient reports to the wound healing center today, 10/21/2020, for evaluation of a reopened left breast ulcer. The patient has no significant past medical history. She is a smoker. In June 2020, she developed an abscess of her left breast, above the nipple. The abscess was red, warm, and tender. She was given a course of Bactrim, which she completed, but no improvement was noted in the abscess. She underwent an I&D with Dr. Gotti and was referred to the wound healing center. Her wound healed quickly (approximately 1 month after initial evaluation at the wound healing center) and she was discharged from the wound healing center on 08/19/2020. She reports that the left breast developed a pinhole sized opening a few weeks following her discharge from the wound center. This quickly and spontaneously resolved. However, approximately 2 weeks ago the left breast reopened and she reports 2 episodes of copious amounts of yellow drainage from the left breast. The left breast has only had scant to small drainage in the past week. She denies purulent/malodorous drainage in the past week. She reports having a recent cold during which she has generally not felt well, but feels she is improving. She denies any warmth, tenderness, or rash of the left breast. She denies any nausea, vomiting, or diarrhea. She has been washing the left breast with antibacterial soap and water and covering with gauze. 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 She has also resumed exercising (weightlifting). She uses a tanning bed. She had previously quit smoking during the course of her wound treatment, but resumed smoking in July after her wound had healed. [facility] Medical History (Updated 10/21/20 @ 15:26 by Naz Welch NP, SENIOR INFORMATION SYSTEMS ARCHITECT-C) Stomach ulcer Home Medications NK 06/29/20 [History Last Taken Unknown] Allergy/AdvReac Type Severity Reaction Status Date / Time meperidine HCl [From Demerol] Allergy Low blood Verified 06/29/20 08:30 pressure Surgical History (Updated 07/22/20 @ 12:13 by Christen Cheuvront SENIOR INFORMATION SYSTEMS ARCHITECT, SENIOR INFORMATION SYSTEMS ARCHITECT-C) History of pancreatectomy History of tubal ligation Social History (Updated 04/18/18 @ 17:40 by Lorenzo PINTO, PA) Smoking Status: Former smoker alcohol intake: current alcohol intake frequency: a few times a week Alcohol type: beer ROS Constitutional Constitutional: Reports as per HPI Eyes Eyes: Denies change in vision or double vision ENT HEENT: Denies lip swelling or tongue swelling Cardiovascular Cardiovascular: Denies chest pain, leg edema or palpitations Respiratory/Chest Respiratory/Chest: Denies cough, shortness of breath at rest, shortness of breath with exertion or wheezing Gastrointestinal Gastrointestinal: Denies diarrhea, nausea or vomiting Genitourinary Genitourinary: Denies dysuria or hematuria Musculoskeletal Musculoskeletal: Denies abnormal gait, extremity pain, muscle weakness, numbness or tingling Integumentary Integumentary: Reports wounds; Denies rash Neurologic Neurologic: Denies abnormal gait, abnormal speech or focal weakness Endocrine Endocrinology: Denies cold intolerance, heat intolerance, polydipsia or polyuria Hematologic/Lymphatic Hematologic/Lymphatic: Denies easy bleeding or easy bruising Vital Signs Vital Signs Vital Signs: 10/21/20 11:11 Temperature 97.6 F L Temperature Source Temporal Pulse Rate 101 H Blood Pressure 116/67 Blood Pressure Mean 83 Blood Pressure Source Monitor Blood Pressure Position Sitting Blood Pressure Location Left Arm Physical Exam Const alert, no apparent distress and healthy appearing General Appearance: cooperative, comfortable and well kempt HEENT Head and Scalp: normocephalic and atraumatic Eyes EOMs intact bilaterally Neck supple and no JVD Chest Breast/Axilla Inspection: abnormal inspection of the breast erythema, scar and other (No abscess palpated; wound present- see below) Resp normal respiratory effort, normal air movement and no use of accessory muscles Auscultation: clear to auscultation bilaterally; Negative for crackles, rales, rhonchi or wheezes Cardio regular rate and regular rhythm GI normal to inspection, nondistended, normoactive bowel sounds Extremity normal capillary refill Skin General Skin Exam: scars healing (Left breast) Wounds: wounds noted No malodorous, No no odor, open and No surrounding erythema Wound Narrative: Left breast ulcer with tunneling at 9:00. No clinical signs of infection. No periulcer erythema, tenderness, swelling, or warmth. No purulent/malodorous drainage. No palpable abscess of the left breast. No drainage expressed from the left breast. Neuro oriented x3, moves all extremities and no focal motor deficits Psych mental status grossly normal, cooperative and affect normal Debridement Note Debridement Note Post-Debridement Measurements and Additional Note: Post-Debridement Measurements/Treatment - Nurse 2 - General Ulcer CM Notes Start: 10/21/20 11:11 Freq: Status: Active Protocol: Activity Type Activity Date Activity User E-Sign Co-Sign Detail Recorded Client Recorded Date Recorded By Document 10/21/20 13:58 PL [id number] 10/21/20 13:59 PL 10/21/20 13:58 Wound Center Nurse 2 #2 Left Breast -Time 12:03 -Correct Patient Yes -Correct Side, Site, Position Yes -Correct Procedure Yes -Procedure Performed Yes -Type of Procedure Debridement -Clinical Debridement Subcutaneous -Tissue Removed Subcutaneous -Post Debridement (cm) - Length 0.5 -Post Debridement (cm) - Width 1.0 -Post Debridement (cm) - Depth 0.3 -Total Square (Post) (cm) 0.50 -Area of Debridement (cm) - Length 0.5 -Area of Debridement (cm) - Width 1.0 -Total Square (Area) (cm) 0.50 -Tunneling No -Undermining/Tunneling No -Circular Undermining No -Wound/Ulcer Outcome Not Healed -Ulcer Cleansing Rinsed/ Irrigated with Saline -Foul Odor after Cleansing No -Bioengineered Tissue No -Bleeding Controlled with Pressure -Treatment Response Procedure Tolerated Well -Debridement - Subq, 1st 20sq cm Yes Pain Scale: 0-10 Numeric Is Patient Pain Free? Yes - Nurse 3 - General Ulcer D/C NN Start: 10/21/20 11:11 Freq: Status: Active Protocol: Activity Type Activity Date Activity User E-Sign Co-Sign Detail Recorded Client Recorded Date Recorded By Document 10/21/20 12:21 KR [id number] 10/21/20 12:22 KR 10/21/20 12:21 Wound Care Nurse 3 #2 Left Breast -Ulcer Cleansing Rinsed/ Irrigated with Saline -Primary Dressing Applied Promogran Gabi Matter -Primary Dressing Covered/Secured with Dry Gauze, Secured with Tape -Promogran Gabi Matter 1 Pain Scale: 0-10 Numeric Is Patient Pain Free? Yes - Visit Discharge Discharge Condition Stable Ambulatory Status Ambulatory Transportation Private Auto Wound debrided: Left breast ulcer Laterality: Left Type of Debridement: Excisional debridement Anesthesia Used: 4% Lidocaine Solution and Cetacaine Depth: in the subcutaneous layer Percentage of wound debrided: 100 Instrument Used: 3mm curette Tissue Removed: Slough and devitalized tissue Severity: Fat Layer Exposed Amount of bleeding with debridement: Moderate Bleeding Controlled with: Compression and gauze Patient tolerated procedure: Patient tolerated procedure well Assessment & Plan Assessment/Plan (1) Ulcer of skin of breast: Status: Resolved Code(s): N61.1 - Abscess of the breast and nipple (2) Non-healing surgical wound: Status: Resolved Code(s): T81.89XA - Other complications of procedures, not elsewhere classified, initial encounter Qualifiers: Encounter type: subsequent encounter Qualified Code(s): T81.89XD - Other complications of procedures, not elsewhere classified, subsequent encounter Plan: Debridement performed today in clinic as annotated above. Gabi applied. At home wound-care instructions: Change Gabi dressing once daily or more frequently as needed due to contamination. Wash wounds daily with antibacterial soap and water, rinse and dry thoroughly before each dressing change. The patient was instructed to avoid pressure and friction on the affected areas. Avoid wearing a bra or other clothing that tugs or rubs at the breast. Work restrictions were given. Patient is to limit work involving repetitive use of left arm or lifting of left arm above shoulder height. She was instructed not to lift/carry anything heavier than 20 pounds. She was advised to avoid tanning until her breast ulcer has healed. Diet: Patient encouraged to increase protein intake. Smoking: The risks of smoking and benefits of smoking cessation were discussed with the patient today. The patient is encouraged to quit smoking. If smoking cessation aids are desired, the patient should contact their primary care provider to discuss appropriate options. Labs/cultures/imaging: Cultures ordered and collected today. The need for antibiotics will be determined based on culture results. Patient did not wish to begin empiric treatment with antibiotics today. Follow-up: Return to clinic in 1 week for re-evaluation. Return sooner or report to the emergency room should symptoms worsen, or new symptoms arise. Note: [employer] speech recognition broadcast transmitter operator software was used to create portions of this document. Sound-alike and misspelled words, as well as other broadcast transmitter operator errors may be contained in the documentation. Charges/Coding Visit Charges Office Visits / Consults: 10448 OV L4 Est Procedures Integumentary [id number]: [id number] Jessie subq tissue 20 sq cm/<
== END 2020-10-21 23:59 ==
LOC: WC 10:47
PROVIDERS: Visit Provider Nurse Practitioner Family
DX: N61.1 Abscess of the breast and nipple (principal); T81.89XD Other complications of procedures, not elsewhere classified, subsequent encounter; Z87.891 Personal history of nicotine dependence; Z98.51 Tubal ligation status
CPT/HCPCS: 11042; 87070; 87075; 87205; 99213; G0463

== ENCOUNTER 2022-04-30 10:58 | Emergency (ER) | payer MEDICAID, SELFPAY ==
[2022-04-30 10:58] VITALS: BP 118/69; PULSE 67; RESP 16; TEMP 36.3; O2SAT 100; BMI 28.3
--- NOTE | 2022-04-30 11:22 | CT_ITS ---
HISTORY: epigastric pain, distension, vtg. TECHNIQUE: Helically acquired images were obtained of the abdomen and pelvis after the intravenous administration of 100mL Isovue-300. A radiation dose optimization technique was used for this scan. 394 images. COMPARISON: 06/29/2020. FINDINGS: LOWER CHEST: Stable 4 mm pleural-based left lower lobe nodule. BOWEL: Bowel including appendix nondilated. Moderate stool in the colon. PERITONEUM: No significant ascites. LIVER: No enhancing mass. GALLBLADDER/BILIARY TREE: Gallbladder absent. SPLEEN/PANCREAS: Homogeneous and nonenlarged. KIDNEYS/ADRENAL GLANDS: Unremarkable. VESSELS: No abdominal aortic aneurysm. PELVIC ORGANS: Unchanged appearance. BONES: Intact. CT/Abdomen/Pelvis W IV Cont ONLY IMPRESSION: No acute abnormality identified. Moderate stool in the colon. Stable 4 mm left lower lobe pulmonary nodule. Electronically Signed: Dee Hudson MD at 12:40 EST ,
--- NOTE | 2022-04-30 11:23 | EDS_ITS ---
HPI HPI - GI History of Present Illness Chief Complaint: Abd Pain Informant: patient Abdominal Pain/Flank Pain Onset: Weeks (1) Context: Gradual Onset Timing: Continuous and Waxes and wanes Quality: Aching and Sharp Location: - (Periumbilical) Current Severity: Moderate Maximum Severity: Moderate Worsened by: Food Relieved by: Nothing Nausea/Vomiting/Emesis GI Symptom: Positive for Nausea and Vomiting (Dry heaving only) Quality: Negative for Blood streaks, Coffee ground or Hematemesis Diarrhea/Melena/Hematochezia GI Symptom: Positive for Diarrhea Onset: Days (At the beginning of this but gone since) Stool Quality: Positive for Loose; Negative for Black, Maroon or BRB per rectum Severity: Mild Associated Symptoms Associated Symptoms: Negative for Dysuria, Frequency, Hematuria or Urgency Narrative Narrative: Patient has had abdominal pain and distention with meals for the past week. She states she has eaten hardly anything in the past 2 days but symptoms have not resolved, she try to eat a couple bites of food and within minutes, maybe 10 or 15, she was having recurrence of her periumbilical pain and bloating/distention. She has had dry heaves but no hematemesis or bright red blood per rectum or melena. She has a history of stomach ulcers that were diagnosed on EGD, but she states this was long ago and [facility] She does not take any PPI or H2 blockers on a daily basis now, but in the past when she had ulcers she was vomiting blood and having dark stools, none of that at this time. No fevers or chills. No contact with others with similar illness. No travel out of the area. No recent surgeries but she has had a prior tubal and cholecystectomy in the past. [facility] Medical History (Updated 04/30/22 @ 13:[address] Gee Greene MD) GERD (gastroesophageal reflux disease) Stomach ulcer Home Medications dicyclomine 10 mg capsule 20 mg PO Q6H PRN PRN abdominal discomfort #30 CAPSULES 04/30/22 [Rx Last Taken Unknown] pantoprazole 40 mg tablet,delayed release 40 mg PO DAILY #30 tabs 04/30/22 [Rx Last Taken Unknown] promethazine 25 mg tablet 25 mg PO Q6H PRN PRN Nausea #16 TABLETS 04/30/22 [Rx Last Taken Unknown] Allergy/AdvReac Type Severity Reaction Status Date / Time meperidine HCl [From Demerol] Allergy Low blood Verified 04/30/22 11:01 pressure Surgical History (Updated 04/30/22 @ 11:[address] Gee Greene MD) History of pancreatectomy History of tubal ligation S/P cholecystectomy Social History (Updated 04/18/18 @ 17:40 by Lorenzo PINTO, PA) Smoking Status: Current every day smoker tobacco type: cigarettes alcohol intake: current alcohol intake frequency: a few times a week Alcohol type: beer ROS ROS ED Constitutional Constitutional ED: Reports malaise; Denies chills or fever(s) Eyes Eyes: Denies change in vision or diplopia ENT ENT ED: Denies rhinorrhea or sore throat Cardiovascular Cardiovascular: Denies chest pain or palpitations Respiratory/Chest Respiratory/Chest: Denies cough or dyspnea Gastrointestinal Gastrointestinal: Reports as per HPI, abdominal pain, bloating, diarrhea, nausea and vomiting; Denies hematemesis, hematochezia or melena Genitourinary Genitourinary ED: Denies dysuria or hematuria Musculoskeletal Musculoskeletal: Denies back pain or neck pain Integumentary Denies abscess or rash Neurologic Neurologic: Denies headache(s), paresthesias or weakness Psychiatric Psychiatric: Denies anxiety or suicidal thoughts EXAM Physical Exam Const Vital Signs: 04/30/22 10:58 04/30/22 13:18 Temperature 97.4 F L Temperature Source Temporal Pulse Rate 67 69 Respiratory Rate 16 18 Blood Pressure 118/69 Blood Pressure Mean 85 Pulse Ox 100 98 Oxygen Delivery Method Room Air Room Air Positive well nourished and well developed General Appearance ED: well developed and NAD HEENT Reports moist mucous membranes normocephalic and atraumatic Eyes PERRL and EOMs intact bilaterally Neck full ROM and supple Resp normal respiratory effort and clear to auscultation bilaterally Cardio regular rate, regular rhythm and no murmurs Rate: Negative for tachycardic GI GI Narrative: Mild diffuse distention. Tender periumbilical and epigastrium, otherwise nontender. No guarding or rebound tenderness. No palpable hernias or masses. Auscultation: normoactive bowel sounds Palpation: soft Back/Spine no CVA tenderness General Back: other FROM Extremity normal to inspection General Extremety ED: Negative for edema, pulses abnormal or tenderness General Extremity: Negative for edema or pulses abnormal Neuro oriented x3, CN's II-XII intact bilaterally, no sensory deficits noted and gait normal Sensorium / Orientation: awake and alert Motor Exam: strength 5/5 throughout Psych mental status grossly normal and thought process normal Skin no rashes or lesions noted and no wounds MDM MDM MDM Narrative Medical decision making narrative: Patient's work-up including a CT of the abdomen/pelvis with IV contrast was essentially unremarkable. Her labs are all normal. She was given Mylanta with simethicone and Bentyl along with some IV fluids and Zofran, she had some mild improvement but still having some cramping which I will treat her with Toradol for as well. Her vital signs are normal. On further discussion she states she has diarrhea [id number] with normal stools for a week at a time, more chronically than these symptoms. She may have irritable bowel or inflammatory bowel disease. She has not followed up with GI or PCP for this, I am referring her to both been prescribing her medications for the symptoms. She is comfortable with that plan. Lab Data Attestation: I reviewed the patient's lab results. Labs: Laboratory Results - last 24 hr 04/30/22 04/30/22 04/30/22 11:13 11:13 11:13 WBC 6.8 RBC 4.45 Hgb 14.6 Hct 43.1 MCV 96.9 MCH 32.8 H MCHC 33.9 RDW Std Deviation 43.5 RDW Coeff of Cathleen 12.1 Plt Count 263 MPV 11.1 Immature Gran % (Auto) 0.100 Neut % (Auto) 61.8 Lymph % (Auto) 29.4 George % (Auto) 6.2 Eos % (Auto) 1.9 Baso % (Auto) 0.6 Absolute Neuts (auto) 4.2 Absolute Lymphs (auto) 1.99 Nucleated RBC % 0 Sodium 138 Potassium 3.9 Chloride 107 Carbon Dioxide 25.0 Anion Gap 6 BUN 9 Creatinine 0.81 Estim Creat Clear Calc 86.90 Est GFR (MDRD) Af Amer 106 Est GFR (MDRD) Non-Af 87 BUN/Creatinine Ratio 11.1 Glucose 92 Calcium 9.0 Total Bilirubin 0.50 AST 14 L ALT 25 Alkaline Phosphatase 49 Total Protein 7.6 Albumin 4.2 Globulin 3.4 Albumin/Globulin Ratio 1.2 Lipase 82 Serum , Qual NEGATIVE Radiography Diagnostic Testing: Clinical Impression(s) from Imaging Studies Abdomen/Pelvis CT 04/30/22 11:22 IMPRESSION: No acute abnormality identified. Moderate stool in the colon. Stable 4 mm left lower lobe pulmonary nodule. Electronically Signed: Dee Hudson MD at 12:40 EST Reading Location ID and State: [facility] / MD Tel , Service support , Discharge Plan Triage Chief Complaint: Abd Pain ED Provider: Gee Greene Dx/Rx/DC Orders Clinical Impression: Periumbilical abdominal pain, Abdominal bloating with cramps, Intermittent diarrhea Instructions: ED Abdominal Pain Unkn Cause Fem Prescriptions: New dicyclomine 10 MG capsule 20 mg PO Q6H PRN PRN (Reason: abdominal discomfort) Qty: 30 0RF pantoprazole 40 mg tablet,delayed release (DR/EC) 40 mg PO DAILY Qty: 30 0RF promethazine [promethazine] 25 MG tablet 25 mg PO Q6H PRN PRN (Reason: Nausea) Qty: 16 0RF Primary Care Provider: Care Physician,No Primary Referrals: Edith Chery MD [Med Staff - Clinical Nurse Reviewer] - 1-2 Weeks (for primary care) Herberth Wild DO [Med Staff - Active Staff] - As soon as possible Disposition Disposition: Home, Self Care
[2022-04-30] MEDS: Mag Hydrox/Al Hydrox/Simeth 30 ML UDC PO (11:31)
[2022-04-30] MEDS: Ondansetron 4 MG/2 ML Vial IV (11:31)
[2022-04-30] MEDS: 0.9% Normal Saline 1,000 ML 1000 ML IV (11:31)
[2022-04-30 11:41] LABS: Absolute Lymphocyte Count 1.99 X10^3/uL (0.83-4.51); Absolute Neutrophil Count 4.2 X10^3/uL (2.0-7.7); Basophil# 0.04 X10^3/uL; Basophil% 0.6 % (0-1); Eosinophil# 0.13 X10^3/uL; Eosinophils% 1.9 % (0-5); Hematocrit 43.1 % (37-47); Hemoglobin 14.6 g/dL (12.0-15.0); Lymphocyte # 1.99 X10^3/ul (0.83-4.51); Lymphocyte % 29.4 % (19-41); Mean Corp Hgb Conc 33.9 g/dL (32-36); Mean Corpuscular Hgb 32.8 pg (27.0-32.0); Mean Corpuscular Volume 96.9 fL (81-99); Mean Platelet Vol. 11.1 fl (6.2-12.0); Monocyte# 0.42 X10^3/uL; Monocyte% 6.2 % (0-10); NRBC Flagged by Analyzer 0 % (0-5); Neutrophil # 4.17 X10^3/uL (2.7-7.7); Neutrophil % 61.8 % (47-70); Platelet Count 263 K/mm3 (150-450); RBC Distribution Width CV 12.1 % (11.6-14.6); RBC Distribution Width SD 43.5 fl (35.1-43.9); Red Blood Count 4.45 M/mm3 (4.2-5.4); White Blood Count 6.8 K/mm3 (4.4-11.0)
[2022-04-30 11:58] LABS: ALB/GLOB Ratio 1.2 RATIO (0.9-2.4); AST(SGOT) 14 U/L (15-37); Alanine Aminotransfer ALT/SGPT 25 U/L (13-56); Albumin, Serum 4.2 g/dL (3.2-5.0); Alkaline Phosphatase 49 U/L (45-117); Anion Gap 6 (5-15); BUN 9 mg/dL (7-18); BUN/Creat Ratio 11.1 RATIO (10-20); Chloride 107 mmol/L (98-107); Creatinine, Serum 0.81 mg/dL (0.55-1.02); EST Glomerular Filtration Rate 87 mL/min (>60); Est Glom Filt Rate - Afr Amer 106 mL/min (>60); Globulin 3.4 g/dL (2.2-4.2); Glucose 92 mg/dL (74-106); Lipase 82 U/L (73-393); Potassium 3.9 mmol/L (3.5-5.1); Protein, Total 7.6 g/dL (6.4-8.2); Sodium Level 138 mmol/L (136-145)
[2022-04-30 12:01] LABS: Internal QC Validated? YES +Cl - CLEAR BKGD; Pregnancy, Serum, hCG Quali. NEGATIVE Negative
[2022-04-30 13:18] VITALS: PULSE 69; RESP 18; O2SAT 98
== END 2022-04-30 13:37 | disposition home or self-care (01) ==
PROVIDERS: Emergency Provider Emergency Medicine; Visit Provider Emergency Medicine
DX: R10.33 Periumbilical pain (principal); R11.2 Nausea with vomiting, unspecified; R14.0 Abdominal distension (gaseous); F17.210 Nicotine dependence, cigarettes, uncomplicated; K92.1 Melena; R19.7 Diarrhea, unspecified; K21.9 Gastro-esophageal reflux disease without esophagitis
CPT/HCPCS: 74177; 80053; 83690; 84703; 85025; 99283; J7030; Q9967; A4216; J2405; J3490

== ENCOUNTER 2022-08-15 05:26 | Day surgery (SDC) | payer MEDICAID, SELFPAY ==
[2022-08-15] VITALS (9 sets, daily range): BP systolic 84–121; BP diastolic 57–74; PULSE 59–85; RESP 16–18; TEMP 36.1–36.4; O2SAT 97–99; BMI 28.5
[2022-08-15] MEDS: Lactated Ringers 1,000 ML 15 ML IV (06:02)
--- NOTE | 2022-08-15 06:30 | EGD_PTH ---
PATIENT: KIM RIDDLE LOC: EN U#:[id number] AGE/SX: 31/F ROOM: RE08/15/[address]: Dr. Herberth Wild DO : 1990 BED: DIS: 08/15/2022 SPEC #: [id number] RECD: 08/15/22 10:23 STATUS: JENNYFER REChelsea #: [id number] DEEP: 08/15/22 06:[address]: Herberth Wild DEPT: SURGICAL PATHOLOGY RECD BY: Wilma Sandoval ENTERED: 08/15/22 11:59 SP TYPE: EGD BIOPSY OTHR DR: Juana Primary Care Phys Tissues: A - Duodenum, NOS B - Gastric mucous membrane C - Esophagus, NOS D - Ileum, NOS E - COLON BIOPSY Procedures: Special Stain Group II Surgery Specimen Level IV Alcian Blue/PAS (control) HEADER OPERATION: Colonoscopy, EGD ([facility] [place] PRE-OP DIAGNOSIS: GERD, abdominal pain, diarrhea TISSUE SUBMITTED: A ? Duodenum biopsy, B ? Gastric body biopsy, C ? Distal esophagus biopsy, D ? Terminal ileum biopsy, E ? Random colon biopsy MICROSCOPIC DIAGNOSIS A. Duodenum, biopsy: Fragments of duodenal mucosa, no pathologic diagnosis. B. Gastric body, biopsy: Mild gastritis. See microscopic description and comment. C. Distal esophagus, biopsy: Fragments of gastroesophageal mucosa with chronic inflammation. Intestinal metaplasia (goblet cell metaplasia) not identified. See comment. D. Terminal ileum, biopsy: Fragments of small intestinal mucosa, no pathologic diagnosis. E. Colon, random biopsy: Fragments of colonic mucosa, no pathologic diagnosis. SJ:azeb 08/16/2022 COMMENT B. The results of immunohistochemistry for Helicobacter pylori will be reported separately ([id number]). C. Alcian blue/PAS stain with matched control is used in the evaluation of the specimen. MICROSCOPIC DESCRIPTION Slides are reviewed. B. The specimen shows fragments of gastric mucosa with chronic inflammatory cell infiltrates in the lamina propria consisting of lymphocytes and plasma cells, consistent with mild chronic gastritis. GROSS DESCRIPTION A - Received in fixative is one container labeled with the patient's name and designated duodenum biopsy. The specimen consists of multiple irregular fragments of light cronin soft tissue that in aggregate measure 0.8 x 0.3 x 0.1 cm. The specimen is totally submitted in one cassette. B - Received in fixative is one container labeled with the patient's name and designated gastric body biopsy. The specimen consists of two irregular fragments of light cronin soft tissue that in aggregate measure 0.4 x 0.4 x 0.1 cm. The specimen is totally submitted in one cassette. C - Received in fixative is one container labeled with the patient's name and designated distal esophagus biopsy. The specimen consists of multiple irregular fragments of light cronin soft tissue that in aggregate measure 1.2 x 0.3 x 0.1 cm. The specimen is totally submitted in one cassette. D - Received in fixative is one container labeled with the patient's name and designated terminal ileum biopsy. The specimen consists of multiple irregular fragments of light cronin soft tissue that in aggregate measure 1.3 x 0.3 x 0.1 cm. The specimen is totally submitted in one cassette. E - Received in fixative is one container labeled with the patient's name and designated random colon biopsy. The specimen consists of multiple irregular fragments of light cronin soft tissue that in aggregate measure 1.0 x 0.3 x 0.1 cm. The specimen is totally submitted in one cassette. / SJ:azeb 08/15/2022 TC:3 CPT: 49420 x5, 51798
--- NOTE | 2022-08-15 06:30 | IMM_PTH ---
PATIENT: KIM RIDDLE LOC: EN U#:[id number] AGE/SX: 31/F ROOM: RE08/15/[address]: Dr. Herberth Wild DO : 1990 BED: DIS: 08/15/2022 SPEC #: [id number] RECD: 08/15/22 13:57 STATUS: BRAYDONRoderick REChelsea #: [id number] DEEP: 08/15/22 06:[address]: Herberth Wild DEPT: IMMUNOHISTOCHEMISTRY RECD BY: Karlene Tilley ENTERED: 08/15/22 13:57 SP TYPE: IMMUNO OT DR: No Primary Care Phys Tissues: B - Stomach, NOS Procedures: H Pylori (initial) PHYSICIAN & INSTITUTION [place] [id number] SPECIMEN INFORMATION: Tissue Source: B ? Gastric body biopsy Clinical Info: GERD, abdominal pain, diarrhea Specimen Number: [id number] CPT code: 03465 METHODOLOGY: Deparaffinized sections of prefer/formalin-fixed tissue or PAP/DQ stained slides are incubated with monoclonal/polyclonal antibodies/oligonucleotide probes. Localization is made via biotin free immunoperoxidase method. Appropriate controls are performed and reacted as expected. Results on target cell population are indicated in the following table: RESULTS: ANTIBODY / CLONE RESULT Block B H Pylori (polyclonal) negative These tests were developed and their performance characteristics determined by [facility]. They may not have been cleared or approved by the U.S. Food and Drug Administration. The FDA has determined that such clearance or approval is not necessary. The above immunohistochemical/dualISH markers are ordered and reviewed by the Pathologist. INTERPRETATION: B. Gastric body, biopsy: Negative for Helicobacter pylori organisms. SJ:azeb 08/16/2022
--- NOTE | 2022-08-15 06:32 | HP.PCM_ITS ---
History and Physical Date of Admission: 08/15/22 KIM RIDDLE, is a 31 F who presents to the office today to establish with gastroenterology for the visit 04/30/2022 for abdominal pain.? She reports an almost lifetime history of GI complaints.? She presented to the ED for periumbilical abdominal pain and distention with meals therefore she was limiting her intake.? CT abdomen and pelvis in the ED showed no acute abnormality, there was moderate stool within the colon.? She was prescribed dicyclomine, pantoprazole and promethazine, however she has only taken the promethazine because she dislikes taking medications.? She does find the promethazine helpful in managing her nausea therefore she would like a refill. She reports a history of stomach ulcers when she was a teenager.? She reports she always has either constipation or diarrhea, never normal bowel movements.? For the past 2 months she has had more significant abdominal complaints.? She has a pain across the upper abdomen after eating, as well as nausea and bloating.? This occurs when she eats anything, there are no particular food triggers.? She has early satiety.? She is lactose intolerant.? She typically has a bowel movement very soon after eating, this can often be diarrhea.? No melena or hematochezia.? She does have heartburn which has worsened in the past 2 months.? No dysphagia.? Weight is stable. History of pancreatitis that was attributed to alcohol intake in August 2013.? She had cholecystectomy in October 2013. uncles (from both maternal and paternal sides of the family) w/ crohn's ROS Const Constitutional: Positive for fatigue, headache(s) and weakness ENT ENT: Positive for headache(s); No difficulty swallowing Gastro GI: No abdominal pain, belching, bloating, change in bowel habits, change in stool character, coffee ground emesis, constipation, cramping, diarrhea, heartburn, difficulty swallowing, feeling full early, excessive flatus, incontinent of stools, Vomiting blood/hematemesis, Blood in stool, loose stools, Black,tarry stools, nausea/dyspepsia, pain with swallowing, vomiting or other Musc Musculoskeletal: Positive for joint pain, back pain, muscle cramps, muscle weakness, numbness and tingling Skin Skin: No yellowing of the eye or itchy eyes Neuro Neurology: Positive for weakness, headache(s), numbness and tingling Psych Psychiatric: Positive for anxiety, Positive for depression, Positive for Behavioral Problems and Positive for hyperactivity Endo Endocrine: Positive for fatigue Aller/Imm Allergy/Immunologic: No itchy eyes Giuseppe/Lymp Hematologic/Lymphatic: Positive for easy bleeding and easy bruising Exam Const General: cooperative, comfortable and no acute distress Orientation: alert, awake and oriented x3 HENMT Head: normal to inspection Eyes Sclera: sclerae normal Resp Effort & Inspection: normal respiratory effort GI Inspection: normal to inspection Palpation: soft, no hepatosplenomegaly, no masses and nontender Skin General: no rashes or lesions noted and no jaundice Neuro Gait: normal gait Psych Mood: euthymic mood Quality Reporting Tobacco Screening ([facility] 138) Smoking Status: Current every day smoker Assessment and Plan Assessment and Plan (1) GERD (gastroesophageal reflux disease): ?Status:?Acute ?Plan: 31-year-old female with postprandial upper abdominal pain, nausea and bloating; heartburn and remote history of peptic ulcer disease; long history of alternating diarrhea and constipation; increased frequency of postprandial dumping diarrhea. Pantoprazole 40 mg every morning refill promethazine since that has been very helpful in managing her nausea I'll call her in a couple of weeks to see how she's doing, we will be calling her with test results consider colestipol or cholestyramine consider dicyclomine egd and colonoscopy are scheduled along with 2-week follow-up in the office labs for ibd, celiac, inflammation, rheumatologic etc. (2) Abdominal pain: ?Status:?Acute ?Plan: As above (3) Diarrhea: ?Status:?Acute ?Plan: As above ? ? ? Orders: Orders SOLOMON Comprehensive Panel 06/08/22 R10.9 - Unspecified abdominal p ain, R19.7 - Diarrhea, unspecified ? CBC W/Diff, Automated 06/08/22 R10.9 - Unspecified abdominal p ain, R19.7 - Diarrhea, unspecified ? Comprehensive Metabolic Profil 06/08/22 R10.9 - Unspecified abdominal p ain, R19.7 - Diarrhea, unspecified ? ANCA 06/08/22 R10.9 - Unspecified abdominal p ain, R19.7 - Diarrhea, unspecified ? Erythrocyte Sed Rate 06/08/22 R10.9 - Unspecified abdominal p ain, R19.7 - Diarrhea, unspecified ? CRP 06/08/22 R10.9 - Unspecified abdominal p ain, R19.7 - Diarrhea, unspecified ? Calprotectin, Stool 06/08/22 R10.9 - Unspecified abdominal p ain, R19.7 - Diarrhea, unspecified ? Celiac Disease Profile 06/08/22 R10.9 - Unspecified abdominal p ain, R19.7 - Diarrhea, unspecified ? Stool Lactoferrin/WBC 06/08/22 K58.9 - Irritable bowel syndrom e without diarrhea, R10.9 - Unspecified abdominal pain, R19.7 - Diarrhea, unspecified ? LDH 06/08/22 R10.9 - Unspecified abdominal p ain, R19.7 - Diarrhea, unspecified ? Miscellaneous Lab Procedure 06/08/22 R10.9 - Unspecified abdominal p ain, R19.7 - Diarrhea, unspecified ? Medications: New pantoprazole 40 mg? PO QAM 90 tabs 1RF ? ? Refilled promethazine 25 mg? PO Q6H PRN PRN 40 TABLETS 0RF Juvencio sea ? ? Discontinued dicyclomine ?? Discontinued Reason:? Duplicate Order 20 mg (2 x 10 mg) PO Q6H PRN PRN 30 CAPSULES 0RF abdominal discomfort ? ? pantoprazole ?? Discontinued Reason:? Duplicate Order 40 mg? PO DAILY 30 tabs 0RF ? ? I have examined the patient and the H&P has been reviewed. There are no clinical changes since date of exam.
--- NOTE | 2022-08-15 07:08 | OP.CCLET_ITS ---
08/15/2022 No Primary Care Physician Re : Upper GI endoscopy procedure for Patience Gudino Dear Care Physician This procedure was performed on Monday, August 15, 2022. My impressions and recommendations are as follows: Impressions : - LA Grade A reflux esophagitis. Biopsied. - Erythematous mucosa in the gastric body. Bile gastritis. - No gross lesions in the first portion of the duodenum. Biopsied. Recommendations : - Discharge patient to home. - Resume previous diet. - Continue present medications. - Await pathology results. My findings are described in the full procedure note, which is enclosed. If I can be of further assistance, please feel free to contact me at . Sincerely, Herberth Wild, 08/15/2022 7:07:58 AM This report has been signed electronically.
--- NOTE | 2022-08-15 07:08 | OP.EGD_ITS ---
Patient Name: Patience Gudino Procedure Date: 08/15/2022 6:14 AM Date of : 1990 Age: 31 Procedure: Upper GI endoscopy Indications: Epigastric abdominal pain, Functional Dyspepsia, Heartburn Providers: Herberth Wild DO Medicines: Monitored Anesthesia Care Patient Profile: This is a 31 year old female. Refer to note in patient chart for documentation of history and physical. Patient has symptoms of chronic abdominal cramping, chronic epigastric abdominal pain and chronic nausea. Complications: No immediate complications. Procedure: Pre-Anesthesia Assessment: - Prior to the procedure, a History and Physical was performed, and patient medications and allergies were reviewed. The risks and benefits of the procedure and the sedation options and risks were discussed with the patient. All questions were answered and informed consent was obtained. Patient identification and proposed procedure were verified by the physician in the pre-procedure area. Mental Status Examination: alert and oriented. Airway Examination: normal oropharyngeal airway and neck mobility. Respiratory Examination: clear to auscultation. CV Examination: normal. Prophylactic Antibiotics: The patient does not require prophylactic antibiotics. Prior Anticoagulants: The patient has taken no previous anticoagulant or antiplatelet agents. ASA Grade Assessment: II - A patient with mild systemic disease. After reviewing the risks and benefits, the patient was deemed in satisfactory condition to undergo the procedure. The anesthesia plan was to use monitored anesthesia care (MAC). Immediately prior to administration of medications, the patient was re-assessed for adequacy to receive sedatives. The heart rate, respiratory rate, oxygen saturations, blood pressure, adequacy of pulmonary ventilation, and response to care were monitored throughout the procedure. The physical status of the patient was re-assessed after the procedure. After obtaining informed consent, the endoscope was passed under direct vision. Throughout the procedure, the patient's blood pressure, pulse, and oxygen saturations were monitored continuously. The Colonoscope was introduced through the mouth, and advanced to the second part of duodenum. The upper GI endoscopy was accomplished without difficulty. The patient tolerated the procedure well. Scope In: 6:37:21 AM Scope Out: 6:42:38 AM Total Procedure Duration Time 0 hours 5 minutes 17 seconds Findings: LA Grade A (one or more mucosal breaks less than 5 mm, not extending between tops of 2 mucosal folds) esophagitis with no bleeding was found 38 to 40 cm from the incisors. Biopsies were taken with a cold forceps for histology. Verification of patient identification for the specimen was done. Estimated blood loss was minimal. Patchy mildly erythematous mucosa without bleeding was found in the gastric body. This is believed to be from bile gastritis. No gross lesions were noted in the first portion of the duodenum. Biopsies were taken with a cold forceps for histology. Verification of patient identification for the specimen was done. Estimated blood loss was minimal. Impression: - LA Grade A reflux esophagitis. Biopsied. - Erythematous mucosa in the gastric body. Bile gastritis. - No gross lesions in the first portion of the duodenum. Biopsied. Recommendation: - Discharge patient to home. - Resume previous diet. - Continue present medications. - Await pathology results. Procedure Code(s): --- Professional --- 88085, Esophagogastroduodenoscopy, flexible, transoral; with biopsy, single or multiple CPT copyright 2017 [employer]. All rights reserved. The codes documented in this report are preliminary and upon death surveys coder review may be revised to meet current compliance requirements. Herberth Wild DO 08/15/2022 7:07:58 AM This report has been signed electronically. Number of Addenda: 0 Note Initiated On: 08/15/2022 6:14 AM
--- NOTE | 2022-08-15 07:11 | OP.CCLET_ITS ---
08/15/2022 No Primary Care Physician Re : Colonoscopy procedure for Patience Gudino Dear Care Physician This procedure was performed on Monday, August 15, 2022. My impressions and recommendations are as follows: Impressions : - Congested mucosa in the recto-sigmoid colon, in the sigmoid colon and in the descending colon. Biopsied. - Congested mucosa in the terminal ileum. Biopsied. Recommendations : - Discharge patient to home. - Resume previous diet. - Continue present medications. - Await pathology results. - Repeat colonoscopy in 5 years for surveillance based on pathology results. My findings are described in the full procedure note, which is enclosed. If I can be of further assistance, please feel free to contact me at . Sincerely, Herberth Wild, 08/15/2022 7:10:43 AM This report has been signed electronically.
--- NOTE | 2022-08-15 07:11 | OP.COLON_ITS ---
Patient Name: Patience Gudino Procedure Date: 08/15/2022 6:42 AM Date of : 1990 Age: 31 Procedure: Colonoscopy Indications: Generalized abdominal pain, Clinically significant diarrhea of unexplained origin Providers: Herberth Wild DO Medicines: Monitored Anesthesia Care Patient Profile: This is a 31 year old female. Refer to note in patient chart for documentation of history and physical. Patient has symptoms of chronic abdominal cramping, chronic epigastric abdominal pain and chronic nausea. Last Colonoscopy: none. The patient's first colonoscopy is today. Complications: No immediate complications. Procedure: Pre-Anesthesia Assessment: - Prior to the procedure, a History and Physical was performed, and patient medications and allergies were reviewed. The risks and benefits of the procedure and the sedation options and risks were discussed with the patient. All questions were answered and informed consent was obtained. Patient identification and proposed procedure were verified by the physician in the pre-procedure area. Mental Status Examination: alert and oriented. Airway Examination: normal oropharyngeal airway and neck mobility. Respiratory Examination: clear to auscultation. CV Examination: normal. Prophylactic Antibiotics: The patient does not require prophylactic antibiotics. Prior Anticoagulants: The patient has taken no previous anticoagulant or antiplatelet agents. ASA Grade Assessment: II - A patient with mild systemic disease. After reviewing the risks and benefits, the patient was deemed in satisfactory condition to undergo the procedure. The anesthesia plan was to use monitored anesthesia care (MAC). Immediately prior to administration of medications, the patient was re-assessed for adequacy to receive sedatives. The heart rate, respiratory rate, oxygen saturations, blood pressure, adequacy of pulmonary ventilation, and response to care were monitored throughout the procedure. The physical status of the patient was re-assessed after the procedure. After I obtained informed consent, the scope was passed under direct vision. Throughout the procedure, the patient's blood pressure, pulse, and oxygen saturations were monitored continuously. The Colonoscope was introduced through the anus and advanced to the terminal ileum. The colonoscopy was performed without difficulty. The patient tolerated the procedure well. The quality of the bowel preparation was good. Scope In: 6:44:46 AM Scope Withdrawal Time 0 hours 9 minutes 58 seconds Scope Out: 6:57:32 AM Total Procedure Duration Time 0 hours 12 minutes 46 seconds Findings: The perianal and digital rectal examinations were normal. An area of mildly congested mucosa was found in the recto-sigmoid colon, in the sigmoid colon and in the descending colon. Biopsies were taken with a cold forceps for histology. Verification of patient identification for the specimen was done. Estimated blood loss was minimal. A patchy area of the terminal ileum was congested. Biopsies were taken with a cold forceps for histology. Verification of patient identification for the specimen was done. Estimated blood loss was minimal. Impression: - Congested mucosa in the recto-sigmoid colon, in the sigmoid colon and in the descending colon. Biopsied. - Congested mucosa in the terminal ileum. Biopsied. Recommendation: - Discharge patient to home. - Resume previous diet. - Continue present medications. - Await pathology results. - Repeat colonoscopy in 5 years for surveillance based on pathology results. Procedure Code(s): --- Professional --- 40532, Colonoscopy, flexible; with biopsy, single or multiple CPT copyright 2017 [employer]. All rights reserved. The codes documented in this report are preliminary and upon paid search marketing strategist review may be revised to meet current compliance requirements. Herberth Wild DO 08/15/2022 7:10:43 AM This report has been signed electronically. Number of Addenda: 0 Note Initiated On: 08/15/2022 6:42 AM
== END 2022-08-15 07:57 | disposition home or self-care (01) ==
LOC: EN 05:27 → AC 05:28
PROVIDERS: Visit Provider Internal Medicine Gastroenterology
PROC: 0DJD8ZZ Inspection of Lower Intestinal Tract, Via Natural or Artificial Opening Endoscopic (ICD-10-PCS; CPT 45378; principal; 2022-08-15 06:25)
DX: K21.00 Gastro-esophageal reflux disease with esophagitis, without bleeding (principal); R14.0 Abdominal distension (gaseous); K29.70 Gastritis, unspecified, without bleeding; R10.84 Generalized abdominal pain; R19.7 Diarrhea, unspecified; F17.200 Nicotine dependence, unspecified, uncomplicated
CPT/HCPCS: 45380; 43239; 88305; 88313; 88342; J7120; J2405

== ENCOUNTER → 2022-09-03 | Outpatient (CLI) | payer MEDICAID, SELFPAY ==
[2022-09-03 16:57] LABS: Absolute Lymphocyte Count 2.15 X10^3/uL (0.83-4.51); Absolute Neutrophil Count 4.4 X10^3/uL (2.0-7.7); Basophil# 0.07 X10^3/uL; Eosinophils% 1.4 % (0-5); Hematocrit 39.8 % (37-47); Hemoglobin 13.3 g/dL (12.0-15.0); Lymphocyte # 2.15 X10^3/ul (0.83-4.51); Lymphocyte % 29.3 % (19-41); Mean Corp Hgb Conc 33.4 g/dL (32-36); Mean Corpuscular Volume 95.7 fL (81-99); Mean Platelet Vol. 11.1 fl (6.2-12.0); Monocyte% 8.2 % (0-10); NRBC Flagged by Analyzer 0 % (0-5); Platelet Count 247 K/mm3 (150-450); RBC Distribution Width CV 12.5 % (11.6-14.6); RBC Distribution Width SD 43.9 fl (35.1-43.9); Red Blood Count 4.16 M/mm3 (4.2-5.4); White Blood Count 7.3 K/mm3 (4.4-11.0)
[2022-09-03 17:36] LABS: ALB/GLOB Ratio 1.2 RATIO (0.9-2.4); AST(SGOT) 22 U/L (15-37); Alanine Aminotransfer ALT/SGPT 33 U/L (13-56); Alkaline Phosphatase 47 U/L (45-117); Anion Gap 7 (5-15); BUN 9 mg/dL (7-18); BUN/Creat Ratio 11.6 RATIO (10-20); CRP 3.35 mg/L (0.0-3.0); Calcium,Total 9.4 mg/dL (8.5-10.1); Chloride 110 mmol/L (98-107); Creatinine, Serum 0.78 mg/dL (0.55-1.02); EST Glomerular Filtration Rate 91 mL/min (>60); Est Glom Filt Rate - Afr Amer 110 mL/min (>60); Globulin 3.4 g/dL (2.2-4.2); Glucose 91 mg/dL (74-106); LDH 154 U/L (84-246); Protein, Total 7.4 g/dL (6.4-8.2); Sodium Level 141 mmol/L (136-145)
[2022-09-04 00:16] LABS: Erythrocyte Sedimentation Rate < 1 mm/hr (0-30)
[2022-09-05 16:09] LABS: Cytoplasmic Ab (C-ANCA) <1:20 titer (Neg:<1:20); Endomysial Antibody IgA Negative (Negative); Immunoglobulin A 131 mg/dL (87-352)
[2022-09-05 16:11] LABS: Perinuclear Ab (P-ANCA) <1:20 titer (Neg:<1:20); t-Transglutaminase IgA <2 U/mL (0-3)
[2022-09-05 17:07] LABS: Anti-Centromere B Ab <0.2 AI (0.0-0.9); Anti-Chromatin <0.2 AI (0.0-0.9); Anti-Jo <0.2 AI (0.0-0.9); Anti-Scleroderma-70 AB <0.2 AI (0.0-0.9); RNP Ab <0.2 AI (0.0-0.9); SJOGREN'S Anti-SS-A test < 0.2 AI (0.0-0.9); SJOGREN'S Anti-SS-B test < 0.2 AI (0.0-0.9); Smith Ab <0.2 AI (0.0-0.9)
[2022-09-05 21:25] LABS: Anti-dsDNA Ab 1 IU/mL (0-9)
== END | disposition home or self-care (01) ==
PROVIDERS: Visit Provider Nurse Practitioner Adult Health
DX: R19.7 Diarrhea, unspecified (principal); R10.9 Unspecified abdominal pain
CPT/HCPCS: 36415; 80053; 82784; 83516; 83615; 85025; 85652; 86140; 86225; 86235; 86255; 86256

== ENCOUNTER 2022-11-23 10:06 | Emergency (ER) | payer MEDICAID, SELFPAY ==
[2022-11-23 10:07] VITALS: BP 117/63; PULSE 89; RESP 16; TEMP 36.7; O2SAT 100; BMI 30.5
--- NOTE | 2022-11-23 10:16 | EX.ED.DYSGE1 ---
HPI History of Present Illness Chief Complaint: Dizziness Detail of Chief Complaint: Vertigo/motion Informant: patient Onset/Context/Timing Onset: Days Context: Sudden Onset Timing: Intermittent Quality: Vertigo Location: Not applicable Current Severity: Mild Maximum Severity: Severe Worsened by: Change in position Relieved by: Closing eyes and remaining still Associated Symptoms Associated Symptoms: Nausea Narrative Narrative: Patient is a 32-year-old woman status post bilateral tubal ligation who is present on her menses presents with vertigo that is been intermittent over the past 3 to 4 days. Worse today. She does report mild bifrontal head discomfort. Denies double vision, blurred vision loss of vision. She feels her ears are full. She denies ringing or ears or decreased hearing. Denies rhinorrhea, congestion or postnasal drainage. Denies sore throat. She does report neck pain but denies neck stiffness. She denies paresthesia, anesthesia or motor weakness upper or lower extremities. She denies cardiac or respiratory symptoms. She denies vomiting or diarrhea. Denies black or maroon-colored stool. She denies urologic symptoms. She denies hormonal therapy. She states she feels sweaty. She has not taken anything for her symptoms. Prior similar symptoms: No Recent Illness/Hospitalization: No PFSH PFSH Medical History Alcohol use Anxiety Easy bruising Excessive bleeding Gastric reflux GERD (gastroesophageal reflux disease) History of pain when walking History of ulceration Migraine headache Smoker Stomach ulcer Home Medications NK 11/23/22 [History Last Taken Unknown] Allergy/AdvReac Type Severity Reaction Status Date / Time latex Allergy Rash Verified 11/23/22 10:10 meperidine HCl [From Demerol] Allergy Low blood Verified 11/23/22 10:10 pressure Surgical History History of tubal ligation S/P cholecystectomy Social History (Updated 11/23/22 @ 10:[address] Dennis Heredia MD) household members: children Smoking Status: Current every day smoker tobacco type: cigarettes alcohol intake: current alcohol intake frequency: a few times a week Alcohol type: beer substance use type: does not use ROS ROS ED Constitutional Constitutional ED: Denies chills, fever(s), subjective, sweats or weight loss Eyes Eyes: Denies blurry vision, change in vision or diplopia ENT ENT ED: Reports other Details: Further details noted in the HPI narrative ; Denies ear pain, rhinorrhea or sore throat Cardiovascular Cardiovascular: Denies chest pain or palpitations Respiratory/Chest Respiratory/Chest: Denies cough, dyspnea or dyspnea on exertion Gastrointestinal Gastrointestinal: Reports nausea; Denies abdominal pain, diarrhea, melena or vomiting Genitourinary Genitourinary ED: Reports LMP (females 10-50) Details: Comment: (Presently); Denies dysuria, hematuria or urinary frequency Musculoskeletal Musculoskeletal: Denies arthralgias, back pain, myalgias or neck pain Integumentary Denies rash Neurologic Neurologic: Reports headache(s); Denies paresthesias or weakness Psychiatric Psychiatric: Reports anxiety Endocrine Endocrinology: Denies cold intolerance or heat intolerance Hematologic/Lymphatic Hematologic/Lymphatic: Reports systems reviewed and no addt'l complaints, except as documented EXAM Physical Exam Const Vital Signs: 11/23/22 10:07 11/23/22 10:36 Temperature 98.0 F Temperature Source Temporal Pulse Rate 89 Respiratory Rate 16 Respiratory Effort Normal Respiratory Pattern Normal Blood Pressure 117/63 Blood Pressure Mean 81 Pulse Ox 100 Oxygen Delivery Method Room Air Positive well nourished and well developed Constitutional Narrative: Patient moves her head slightly because of increased symptoms. General Appearance ED: well developed and NAD; Negative for cyanotic, diaphoretic or pallor HEENT Reports moist mucous membranes HEENT Narrative: Head is normocephalic. Ears normal. TMs normal. Nares patent without discharge. Posterior pharynx is normal. Eyes PERRL and EOMs intact bilaterally Eyes Narrative: There is no central gaze nystagmus. Pupils are 3 to 4 mm in size and reactive. General Eye ED: Negative for pale conjunctiva or scleral icterus Neck no lymphadenopathy, supple and no JVD Neck Narrative: There is no carotid bruit noted right or left. Chest Wall inspection of chest normal Resp normal respiratory effort and clear to auscultation bilaterally Cardio regular rate, regular rhythm, S1 normal heart sound, S2 normal heart sound and no murmurs GI normal to inspection, nondistended, normoactive bowel sounds, non-tender, non-distended and no masses; Negative for hepatosplenomegaly Back/Spine no CVA tenderness Extremity normal to inspection General Extremety ED: Negative for edema or tenderness General Extremity: Negative for edema Neuro oriented x3, CN's II-XII intact bilaterally and no sensory deficits noted Neuro Narrative: There is no dysmetria. Romberg with eyes open and close normal. The eye askew test was negative. The hints test was negative. Юлия-Hallpike was positive to the right and left. Symptoms were much worse on the right with nystagmus noted. There initially was an upward deflection followed by a rapid horizontal deflection to the left. Sensorium / Orientation: alert Motor Exam: strength 5/5 throughout Psych mental status grossly normal Skin no rashes or lesions noted, no wounds and skin turgor normal General Skin Exam: Negative for jaundice or pallor MDM MDM MDM Narrative Medical decision making narrative: History physical exam is consistent with benign paroxysmal positional vertigo. Since patient is quite nauseous this time she was treated with Zofran ODT. Will perform Sylvester maneuver. Since her neuro exam is nonfocal with a positive Юлия-Hallpike maneuver imaging was not obtained. Symptoms are not suggestive of vertebrobasilar dissection. Treatment and Re-Evaluation :: Patient became anxious. She was treated with 0.5 mg of Ativan p.o. At 1120 modified Sylvester maneuver was performed. Patient had resolution of symptoms. Total time of Sylvester maneuver 10 minutes. Plan is to reassess in 5 to 10 minutes. If patient is able to ambulate without symptoms will discharge to home. Patient was reassessed at 1132. She has slight dizziness. Her head was not in position it was sudden. Her head was repositioned. She was reassessed at 1142. Her symptoms had resolved. She again was assessed at 1153 and states she only complains of fullness in her ears. Discharge Plan Triage Chief Complaint: Dizziness ED Provider: Dennis Heredia Dx/Rx/DC Orders Clinical Impression: Benign paroxysmal positional vertigo due to bilateral vestibular disorder Instructions: ED BPV Vertigo Prescriptions: No Action NK Primary Care Provider: Care Physician,No Primary Referrals: Care Physician,No Primary [Primary Care Provider] - Activity Restrictions/Additional Instructions: Follow-up with your physician. The name of your physician is located on your insurance card issued to you by [facility]. Disposition Disposition: Home, Self Care
[2022-11-23] MEDS: Ondansetron ODT 4 MG Tablet PO (10:25)
[2022-11-23] MEDS: LORazepam 0.5 MG Tablet PO (10:58)
== END 2022-11-23 11:59 | disposition home or self-care (01) ==
PROVIDERS: Emergency Provider Emergency Medicine; Visit Provider Emergency Medicine
DX: H81.13 Benign paroxysmal vertigo, bilateral (principal); F17.210 Nicotine dependence, cigarettes, uncomplicated; Z90.49 Acquired absence of other specified parts of digestive tract; R11.0 Nausea
CPT/HCPCS: 99282; J7030

== ENCOUNTER 2023-04-16 13:27 | Emergency (ER) | payer MEDICAID, SELFPAY ==
[2023-04-16 13:28] VITALS: BP 127/66; PULSE 102; RESP 18; TEMP 36.1; O2SAT 100
--- NOTE | 2023-04-16 13:39 | RAD_ITS ---
STUDY: X-RAY CHEST REASON FOR EXAM: Female, 32 years old. Chest and back pain. TECHNIQUE: Single AP portable view of the chest. COMPARISON: Comparison is made with prior study dated December 23, 2017. FINDINGS: The lungs are clear and expanded. There is no demonstrated pleural abnormality. Normal size heart. Normal mediastinum and jared. Normal visualized pulmonary arteries. Normal visualized aortic arch and descending thoracic aorta. Normal visualized thoracic spine. Normal visualized ribs, clavicles, and shoulders. There is no demonstrated abnormality of the visualized soft tissue structures of the upper abdomen. RAD/Chest 1 View (Portable) IMPRESSION: Normal x-ray examination of the chest. Electronically Signed: Thompson Gagnon MD at 14:15 EDT ,
--- NOTE | 2023-04-16 13:41 | ED.VIS.BACK ---
HPI History of Present Illness Chief Complaint: Back Detail of Chief Complaint: Back pain Informant: patient Narrative Narrative: Patient presents to the emergency department with complaint of upper back pain that started 2 or 3 days ago. Patient states it came on gradually. Pain is on the right side mostly below her right shoulder blade and tends to radiate towards the neck. Patient had some pain in her right chest yesterday. Today she has had nausea and vomited and had blood when she vomited. Patient states there has been an outbreak of Campylobacter at work where she works and she has had diarrhea for last 4 days. She patient states the pain severe. Feels better with standing at times. She denies injury or fall. Denies recent travel or surgery. No history of PE or DVT. Patient rates her pain a 10 out of 10. Patient has had prior cholecystectomy. [facility] Medical History Alcohol use Anxiety Easy bruising Excessive bleeding Gastric reflux GERD (gastroesophageal reflux disease) History of pain when walking History of ulceration Migraine headache Smoker Stomach ulcer Home Medications colestipol 1 gram tablet 1 g PO BID #60 tabs 01/24/23 [Rx Last Taken Unknown] cyclobenzaprine 10 mg tablet 10 mg PO TID PRN Muscle Spasm #20 TABLETS 04/16/23 [Rx Last Taken Unknown] hydrocodone-acetaminophen 5-325mg 5mg-325mg 1 tab PO Q4H PRN PRN Pain 2 days #10 TABLETS 04/16/23 [Rx Last Taken Unknown] ondansetron 4 mg disintegrating tablet 4 mg PO Q8H PRN PRN Nausea #10 tabs 04/16/23 [Rx Last Taken Unknown] Allergy/AdvReac Type Severity Reaction Status Date / Time latex Allergy Rash Verified 04/16/23 13:27 meperidine HCl [From Demerol] Allergy Low blood Verified 04/16/23 13:27 pressure Surgical History History of tubal ligation S/P cholecystectomy Social History (Updated 11/23/22 @ 10:[address] Dennis Heredia MD) household members: children Smoking Status: Current every day smoker tobacco type: cigarettes alcohol intake: current alcohol intake frequency: a few times a week Alcohol type: beer substance use type: does not use ROS ROS ED Review of Systems ROS Unobtainable: other Constitutional Constitutional ED: Reports lethargy; Denies chills, fever(s), sweats or weight loss Eyes Eyes: Denies blurry vision, change in vision or diplopia ENT ENT ED: Denies rhinorrhea or sore throat Cardiovascular Cardiovascular: Reports chest pain; Denies orthopnea or racing heartbeat Respiratory/Chest Respiratory/Chest: Denies cough, dyspnea, dyspnea on exertion, orthopnea or sputum Gastrointestinal Gastrointestinal: Reports diarrhea, nausea, vomiting and other Details: Hematemesis ; Denies abdominal pain Genitourinary Genitourinary ED: Denies dysuria, hematuria or urinary frequency Musculoskeletal Musculoskeletal: Reports back pain; Denies arthralgias, myalgias or neck pain Integumentary Denies abscess, Abrasions or rash Neurologic Neurologic: Denies headache(s) or weakness Psychiatric Psychiatric: Denies anxiety, depression or suicidal thoughts Endocrine Endocrinology: Denies polydipsia, polyphagia or polyuria Hematologic/Lymphatic Hematologic/Lymphatic: Denies easy bleeding, easy bruising or lymphadenopathy Allergic/Immunologic Allergic/Immunologic ED: Denies mouth swelling, tongue swelling or urticaria EXAM Physical Exam Const Vital Signs: 04/16/23 13:28 04/16/23 14:49 Temperature 96.9 F L Temperature Source Temporal Pulse Rate 102 H 84 Respiratory Rate 18 16 Blood Pressure 127/66 H 132/77 H Blood Pressure Mean 86 95 Pulse Ox 100 98 Oxygen Delivery Method Room Air Positive well nourished and well developed General Appearance ED: well developed and NAD HEENT Reports TM's clear and moist mucous membranes normocephalic and atraumatic; Negative for trauma or tenderness Tympanic Membrane ED: Yes TM's clear Eyes PERRL and EOMs intact bilaterally General Eye ED: Negative for pale conjunctiva or scleral icterus Neck no lymphadenopathy, supple and no JVD General: Negative for tenderness Chest Wall inspection of chest normal and palpation of chest normal Chest: Negative for tenderness Resp normal respiratory effort and clear to auscultation bilaterally Effort and Inspection: Negative for respiratory distress or pain with movement Auscultation: Negative for rhonchi, wheezes or diminished lung sounds Cardio regular rate, regular rhythm, S1 normal heart sound, S2 normal heart sound and no murmurs Peripheral Pulses: pulses 2+ throughout GI normal to inspection, nondistended, normoactive bowel sounds, soft to palpation, non-tender, non-distended and no masses Back/Spine no CVA tenderness Back/Spine Narrative: Mild tenderness over the right upper thoracic paraspinal musculature that somewhat reproduces her pain. There is no erythema or warmth noted. Extremity normal to inspection General Extremety ED: Negative for edema General Extremity: Negative for edema Neuro oriented x3, CN's II-XII intact bilaterally, no sensory deficits noted and gait normal Sensorium / Orientation: awake, alert, oriented to person, oriented to place and oriented to time Motor Exam: strength 5/5 throughout and strength abnormal Psych mental status grossly normal Skin no rashes or lesions noted and no wounds MDM MDM MDM Narrative Medical decision making narrative: Patient presents with upper back pain without any injury. She tells me she is also been having diarrhea for about 4 days frequently watery stool. Apparently there has been an outbreak of Campylobacter where she works. In the differential of her upper back pain is PE versus pneumothorax versus muscle spasm. Diarrhea may be viral versus bacterial etiology. IV line established. Patient was medicated with Dilaudid and Zofran. I did order stool for enteric pathogen's as well as C. difficile and ova and parasites. CBC with differential obtained showed a white count of 9.5 with hemoglobin of 13 and platelet count of 295. Chemistries unremarkable. LFTs were normal. D-dimer was less than 0.27. Chest x-ray obtained 1 view interpreted by myself as no evidence of infiltrate or pneumothorax or acute disease process. Radiology was in agreement. Patient will be given a prescription for Flexeril and [place] for pain. Advised to follow-up with her primary care physician or physician on-call for no doc within next 3 to 5 days Lab Data Attestation: I reviewed the patient's lab results. Labs: Laboratory Results - last 24 hr 04/16/23 13:50 WBC 9.5 RBC 4.23 Hgb 13.1 Hct 39.8 MCV 94.1 MCH 31.0 MCHC 32.9 RDW Std Deviation 42.2 RDW Coeff of Cathleen 12.1 Plt Count 295 MPV 10.5 Immature Gran % (Auto) 0.300 Neut % (Auto) 69.8 Lymph % (Auto) 23.0 [place] % (Auto) 4.9 Eos % (Auto) 1.3 Baso % (Auto) 0.7 Absolute Neuts (auto) 6.7 Absolute Lymphs (auto) 2.19 Nucleated RBC % 0 D-Dimer Quant (PE/DVT) < 0.27 L Sodium 137 Potassium 3.4 L Chloride 108 H Carbon Dioxide 24.0 Anion Gap 5 BUN 10 Creatinine 0.89 Estim Creat Clear Calc 78.36 Est GFR (MDRD) Af Amer 94 Est GFR (MDRD) Non-Af 78 BUN/Creatinine Ratio 11.2 Glucose 141 H Calcium 9.9 Total Bilirubin 0.50 AST 18 ALT 32 Alkaline Phosphatase 45 Total Protein 7.7 Albumin 4.0 Globulin 3.7 Albumin/Globulin Ratio 1.1 Radiography Diagnostic Testing: Clinical Impression(s) from Imaging Studies Chest X-Ray 04/16/23 13:39 IMPRESSION: Normal x-ray examination of the chest. Electronically Signed: Thompson Gagnon MD at 14:15 EDT Reading Location ID and State: [address] [place] [address] , Service support , 1 view chest x-ray obtained interpreted by myself as no evidence of infiltrate or pneumothorax or acute disease process. Radiology in agreement. Discharge Plan Triage Chief Complaint: Back ED Provider: Mily Victoria Dx/Rx/DC Orders Clinical Impression: Back pain, Diarrhea Instructions: ED Back Spasm, No Trauma, ED Diarrhea, Unknown Cause Prescriptions: New cyclobenzaprine [cyclobenzaprine] 10 mg tablet 10 mg PO TID PRN (Reason: Muscle Spasm) Qty: 20 0RF hydrocodone-acetaminophen [hydrocodone-acetaminophen] 5-325 mg tablet 1 tab PO Q4H PRN PRN (Reason: Pain) 2 Days Qty: 10 0RF ondansetron [ondansetron] 4 mg tablet,disintegrating 4 mg PO Q8H PRN PRN (Reason: Nausea) Qty: 10 0RF No Action colestipol 1 gram tablet 1 g PO BID Qty: 60 0RF Rx Instructions: Take 1 gram ( 1 tablet) twice a day if you experience constipation reduce to 1g ( 1 tablet) once a day Primary Care Provider: Care Physician,No Primary Referrals: Michael Enciso MD [Med Staff - Active Staff] - 3-5 Days Care Physician,No Primary [Primary Care Provider] - Disposition Disposition: Home, Self Care Discharge Date/Time: 04/16/23 14:50
[2023-04-16 13:52] VITALS: BMI 29.3
[2023-04-16 13:57] LABS: Absolute Lymphocyte Count 2.19 X10^3/uL (0.83-4.51); Absolute Neutrophil Count 6.7 X10^3/uL (2.0-7.7); Basophil# 0.07 X10^3/uL; Basophil% 0.7 % (0-1); Eosinophil# 0.12 X10^3/uL; Eosinophils% 1.3 % (0-5); Hematocrit 39.8 % (37-47); Hemoglobin 13.1 g/dL (12.0-15.0); Lymphocyte # 2.19 X10^3/ul (0.83-4.51); Mean Corp Hgb Conc 32.9 g/dL (32-36); Mean Corpuscular Volume 94.1 fL (81-99); Mean Platelet Vol. 10.5 fl (6.2-12.0); Monocyte# 0.47 X10^3/uL; Monocyte% 4.9 % (0-10); NRBC Flagged by Analyzer 0 % (0-5); Neutrophil # 6.65 X10^3/uL (2.7-7.7); Neutrophil % 69.8 % (47-70); Platelet Count 295 K/mm3 (150-450); RBC Distribution Width CV 12.1 % (11.6-14.6); RBC Distribution Width SD 42.2 fl (35.1-43.9); Red Blood Count 4.23 M/mm3 (4.2-5.4); White Blood Count 9.5 K/mm3 (4.4-11.0)
[2023-04-16] MEDS: Ondansetron 4 MG/2 ML Vial IV (13:58)
[2023-04-16] MEDS: 0.9% Normal Saline (1000mL) 1,000 ML 150 ML IV (13:58)
[2023-04-16 14:10] LABS: D-Dimer Quantitative (DVT/PE) < 0.27 FEU/ug/m (0.27-0.49)
[2023-04-16 14:15] LABS: ALB/GLOB Ratio 1.1 RATIO (0.9-2.4); AST(SGOT) 18 U/L (15-37); Alanine Aminotransfer ALT/SGPT 32 U/L (13-56); Alkaline Phosphatase 45 U/L (45-117); Anion Gap 5 (5-15); BUN 10 mg/dL (7-18); BUN/Creat Ratio 11.2 RATIO (10-20); Calcium,Total 9.9 mg/dL (8.5-10.1); Chloride 108 mmol/L (98-107); Creatinine, Serum 0.89 mg/dL (0.55-1.02); EST Glomerular Filtration Rate 78 mL/min (>60); Est Glom Filt Rate - Afr Amer 94 mL/min (>60); Estimated Creatinine Clearance 78.36 ml/min; Globulin 3.7 g/dL (2.2-4.2); Glucose 141 mg/dL (74-106); Potassium 3.4 mmol/L (3.5-5.1); Protein, Total 7.7 g/dL (6.4-8.2); Sodium Level 137 mmol/L (136-145)
[2023-04-16 14:49] VITALS: BP 132/77; PULSE 84; RESP 16; O2SAT 98
== END 2023-04-16 14:50 | disposition home or self-care (01) ==
PROVIDERS: Emergency Provider Emergency Medicine; Visit Provider Emergency Medicine
DX: R19.7 Diarrhea, unspecified (principal); F17.210 Nicotine dependence, cigarettes, uncomplicated; M54.9 Dorsalgia, unspecified
CPT/HCPCS: 71045; 80053; 85025; 85379; 99283; J7030; J2405

== ENCOUNTER 2023-04-17 11:54 | Emergency (ER) | payer MEDICAID, SELFPAY ==
[2023-04-17 11:54] VITALS: BP 109/69; PULSE 88; RESP 20; TEMP 36.6; O2SAT 100
--- NOTE | 2023-04-17 11:57 | NURSING ---
NO OLD EKGS
--- NOTE | 2023-04-17 12:15 | CT_ITS ---
INDICATION: Chest pain with radiation towards the back. EXAMINATION: CTA CHEST, ABDOMEN AND PELVIS WITH CONTRAST - TECHNIQUE: A CTA of the chest, abdomen, and pelvis is obtained with sagittal and coronal reconstructed MIP views. Three-dimensional surface rendered sequence of the thoracic and abdominal aorta was obtained. A radiation dose optimization technique was used for this scan. 100 mL of Isovue-370. Oral contrast: None. COMPARISON: None. FINDINGS: CT CHEST: Questionable 2.5 cm x 2.5 cm mass in the axillary region of the left breast. THORACIC AORTA: No atheromatous disease, no aneurysmal changes or dissection. ABDOMINAL AORTA: No aneurysm or dissection. No significant atheromatous disease. The iliac arteries are unremarkable. LUNGS: The lungs are well-expanded without acute or chronic changes. No effusions or pneumothorax. MEDIASTINUM: The thyroid gland is normal. No mediastinal or hilar adenopathy. HEART: Heart is normal size. No pericardial effusion. No CAD. CT ABDOMEN AND PELVIS: LIVER: The liver enhances homogeneously. No masses identified. GALLBLADDER: The CBD is normal. Normal gallbladder. SPLEEN: Normal. PANCREAS: No masses or inflammation. ADRENAL GLANDS: Normal. KIDNEYS AND URETERS: The kidneys both enhance appropriately. There are normal size and shape. No hydronephrosis or nephrolithiasis. No renal masses or cysts. STOMACH: Normal. SMALL BOWEL: No abnormal distention of the small bowel. MESENTERY: No mesenteric inflammation. No ascites. COLON: No significant diverticulosis, masses or inflammation. The colon otherwise is normal. There is a large fatty ileocecal valve. APPENDIX: The appendix is visualized and normal. IVC: Normal. RETROPERITONEUM: No retroperitoneal lymphadenopathy. PELVIC STRUCTURES: Normal bladder. Small umbilical containing fat. Enlarged uterus. Follicles are seen in both ovaries. SOFT TISSUES ABDOMEN: The anterior abdominal wall is normal. SOFT TISSUE CHEST: The extrathoracic soft tissues are normal. BONES: No fractures or significant degenerative disease. CT/CTA Chst, Abd, Pel W and/or WO IMPRESSION: Normal contrast-enhanced CT of the chest. Normal contrast-enhanced CT of the abdomen and pelvis. Questionable 2.5 cm 2.5 cm mass in the axillary region of the left breast. Electronically Signed: Thompson Gagnon MD at 13:28 EDT ,
--- NOTE | 2023-04-17 12:19 | EX.ED.DYSGE1 ---
HPI History of Present Illness Chief Complaint: Chest Other Informant: patient Narrative Narrative: Presents with a primary issue of epigastric pain. She states about 3 days ago she was eating. She had pain in the epigastrium. She swallows and it feels like something is ferrell blocking it. But she is able to swallow foods and liquids. She has vomited. She also complains that she is having yellow profuse malodorous diarrhea. She has never had C. difficile. She has not been on antibiotics. She was exposed possibly to Campylobacter at her workplace. She states she had diarrhea and then it was getting better and now is getting worse. She also complains that the pain in her epigastrium goes through to her back. She states that then goes up and down and her whole body hurts. She has multiple complaints that really cover her entire torso. She is afraid she has an ectopic or appendicitis or something else. But she has no pain in the lower abdomen. She is already had a cholecystectomy. She is very tearful. She does have a history of GERD but is not having the symptoms. She did vomit blood once about 2 or 3 days ago but not since. No blood in the stool. The stool is yellowish. No history of pancreatitis. [facility] Medical History Alcohol use Anxiety Easy bruising Excessive bleeding Gastric reflux GERD (gastroesophageal reflux disease) History of pain when walking History of ulceration Migraine headache Smoker Stomach ulcer Home Medications colestipol 1 gram tablet 1 g PO BID #60 tabs 01/24/23 [Rx Last Taken Unknown] omeprazole 20 mg capsule,delayed release 20 mg PO DAILY #30 CAPSULES 04/17/23 [Rx Last Taken Unknown] ondansetron 4 mg disintegrating tablet 4 mg PO Q8H PRN PRN Nausea #10 tabs 04/17/23 [Rx Last Taken Unknown] sucralfate 1 gram tablet (Carafate) 1 g PO BID #30 tabs 04/17/23 [Rx Last Taken Unknown] Allergy/AdvReac Type Severity Reaction Status Date / Time latex Allergy Rash Verified 04/17/23 11:56 meperidine HCl [From Demerol] Allergy Low blood Verified 04/17/23 11:56 pressure Surgical History History of tubal ligation S/P cholecystectomy Social History household members: children Smoking Status: Current every day smoker tobacco type: cigarettes alcohol intake: current alcohol intake frequency: a few times a week Alcohol type: beer substance use type: does not use ROS ROS ED ROS Narrative A complete review of systems was performed and is negative except as documented in the history of present illness. Some specific details below. Constitutional: No recent fevers or chills. EYE: No visual complaints or pain. ENT: Patient does have worse symptoms when she swallows. But she is not having reflux symptoms. CV: Denies chest pain but then later states that the pain does go up into her chest but is clearly localized at the epigastrium is the center of her pain. Respiratory: No dyspnea. No hemoptysis. No difficulty taking breaths. GI: Please see history of present illness. : No frequency dysuria or hematuria. Musculoskeletal: No recent trauma. Does state that she hurts all over. Skin: No rash. Nondiaphoretic. Neuro: No focal weakness or numbness. Endocrine: No polyuria or polydipsia. EXAM Physical Exam Narrative Exam Narrative: CONSTITUTIONAL: Is very tearful when I entered the room. She has some mild hyperventilation. This is likely due to discomfort or fear. HEENT: No notable trauma. Mucous membranes moist. Voice is normal. No thrush. EYES: No conjunctival injection. No proptosis. Petechiae. CARDIOVASCULAR: Regular rate. Regular rhythm. No notable murmur. No JVD. RESPIRATORY: No respiratory distress. Breathing is unlabored. No wheezes. No rhonchi. No rales. No pain with a deep breath. GASTROINTESTINAL: Not distended. Bowel sounds are normal. Points to the epigastrium as her area of pain. But I am really not getting any objective tenderness on exam. No tenderness lower. I feel no mass. Overall her abdominal exam is normal even though she has significant symptoms in the epigastrium. GENITOURINARY: No tenderness over the bladder. No CVA tenderness. MUSCULOSKELETAL: Atraumatic. No peripheral edema. No cord. No tenderness along the deep venous system. No asymmetry. No petechiae or purpura. No pallor. NEUROLOGICAL: Patient is alert and appropriate. No focal deficit noted. SKIN: No noted rashes. No diaphoresis. PSYCHIATRIC: Patient is tearful. Const Vital Signs: 04/17/23 11:54 04/17/23 12:45 04/17/23 12:45 Temperature 97.8 F Temperature Source Temporal Pulse Rate 88 64 Respiratory Rate 20 H 16 Respiratory Effort Short of Breath Blood Pressure 109/69 Blood Pressure Mean 82 Pulse Ox 100 99 Oxygen Delivery Method Room Air Room Air MDM MDM MDM Narrative Medical decision making narrative: Patient seen the is normal. Patient's electrolytes are normal other than mild decrease of potassium. Because nausea is one of her complaints I will avoid replacing this as I think diet should correct this. Patient's liver function test are overall normal. Patient's lipase is normal. Patient's serum test is negative. My independent interpretation of the patient's CTA of chest abdomen and pelvis shows no acute process. Final reading is similar but they do make note of a questionable 2-1/2 cm as an axillary region although she has no symptoms there. This will be followed as an outpatient. I explained to the patient that there is no indication of acute life-threatening illness. She has mostly epigastric pain. She has a history of ulcer disease. Although she denied pancreatitis it is on her diagnosis list but her lipase and CT are normal. Patient was supposedly on meds for ulcer disease. But she now states that it was some big white pill and when she took it she got sick and constipated so she stopped it. This was somewhere in the last few months but she does not recall when. I think with mostly epigastric pain, 1 episode of vomiting blood, negative work-up here, most likely she has gastritis and/or peptic ulcer disease. We will get her on meds for this. She already has pain meds from yesterday. I will add meds for nausea. She will follow-up with Dr. Wild who she now states she has seen for this. Lab Data Attestation: I reviewed the patient's lab results. Labs: Laboratory Results - last 24 hr 04/17/23 12:43 WBC 9.1 RBC 4.05 L Hgb 12.9 Hct 37.8 MCV 93.3 MCH 31.9 MCHC 34.1 RDW Std Deviation 42.5 RDW Coeff of Cathleen 12.3 Plt Count 264 MPV 10.5 Immature Gran % (Auto) 0.200 Neut % (Auto) 70.1 H Lymph % (Auto) 23.4 [place] % (Auto) 4.5 Eos % (Auto) 1.3 Baso % (Auto) 0.5 Absolute Neuts (auto) 6.4 Absolute Lymphs (auto) 2.13 Nucleated RBC % 0 Sodium 138 Potassium 3.3 L Chloride 108 H Carbon Dioxide 23.0 Anion Gap 7 BUN 10 Creatinine 0.82 Estim Creat Clear Calc 85.05 Est GFR (MDRD) Af Amer 104 Est GFR (MDRD) Non-Af 86 BUN/Creatinine Ratio 12.2 Glucose 115 H Calcium 8.6 Total Bilirubin 0.70 AST 16 ALT 26 Alkaline Phosphatase 38 L Troponin I High Sens 5 Total Protein 7.1 Albumin 3.9 Globulin 3.2 Albumin/Globulin Ratio 1.2 Lipase 20 Serum , Qual NEGATIVE Radiography Diagnostic Testing: Clinical Impression(s) from Imaging Studies Chest/Abdomen/Pelvis CTA 04/17/23 12:15 IMPRESSION: Normal contrast-enhanced CT of the chest. Normal contrast-enhanced CT of the abdomen and pelvis. Questionable 2.5 cm 2.5 cm mass in the axillary region of the left breast. Electronically Signed: Thompson Gagnon MD at 13:28 EDT , EKG Initial EKG: Comments: My independent interpretation the patient's EKG shows sinus rhythm with a rate of 73. No ectopy. No acute ST elevation or depression consistent with infarct or ischemia. MN interval, QRS duration and QTc normal. Discharge Plan Triage Chief Complaint: Chest Other ED Provider: Layo Chen Dx/Rx/DC Orders Clinical Impression: Abdominal pain, Peptic ulcer disease Instructions: ED PUD Prescriptions: New omeprazole [omeprazole] 20 mg capsule,delayed release(DR/EC) 20 mg PO DAILY Qty: 30 0RF sucralfate [Carafate] 1 gram tablet 1 g PO BID Qty: 30 0RF ondansetron [ondansetron] 4 mg tablet,disintegrating 4 mg PO Q8H PRN PRN (Reason: Nausea) Qty: 10 0RF No Action colestipol 1 gram tablet 1 g PO BID Qty: 60 0RF Rx Instructions: Take 1 gram ( 1 tablet) twice a day if you experience constipation reduce to 1g ( 1 tablet) once a day Primary Care Provider: Care Physician,No Primary Referrals: Friend,Herberth, DO [Med Staff - Active Staff] - 1 Week if not improving Care Physician,No Primary [Primary Care Provider] - Disposition Disposition: Home, Self Care
[2023-04-17] MEDS: 0.9% Normal Saline (1000mL) 1,000 ML 1000 ML IV (12:42)
[2023-04-17] MEDS: Ondansetron 4 MG/2 ML Vial IV (12:42)
[2023-04-17 12:45] VITALS: PULSE 64; RESP 16; O2SAT 99
[2023-04-17 12:59] LABS: Absolute Lymphocyte Count 2.13 X10^3/uL (0.83-4.51); Absolute Neutrophil Count 6.4 X10^3/uL (2.0-7.7); Basophil# 0.05 X10^3/uL; Basophil% 0.5 % (0-1); Eosinophil# 0.12 X10^3/uL; Eosinophils% 1.3 % (0-5); Hematocrit 37.8 % (37-47); Hemoglobin 12.9 g/dL (12.0-15.0); Lymphocyte # 2.13 X10^3/ul (0.83-4.51); Lymphocyte % 23.4 % (19-41); Mean Corp Hgb Conc 34.1 g/dL (32-36); Mean Corpuscular Hgb 31.9 pg (27.0-32.0); Mean Corpuscular Volume 93.3 fL (81-99); Mean Platelet Vol. 10.5 fl (6.2-12.0); Monocyte# 0.41 X10^3/uL; Monocyte% 4.5 % (0-10); NRBC Flagged by Analyzer 0 % (0-5); Neutrophil # 6.37 X10^3/uL (2.7-7.7); Neutrophil % 70.1 % (47-70); Platelet Count 264 K/mm3 (150-450); RBC Distribution Width CV 12.3 % (11.6-14.6); RBC Distribution Width SD 42.5 fl (35.1-43.9); Red Blood Count 4.05 M/mm3 (4.2-5.4); White Blood Count 9.1 K/mm3 (4.4-11.0)
[2023-04-17 13:02] LABS: Internal QC Validated? YES +Cl - CLEAR BKGD
[2023-04-17 13:03] LABS: Pregnancy, Serum, hCG Quali. NEGATIVE Negative
[2023-04-17 13:07] LABS: ALB/GLOB Ratio 1.2 RATIO (0.9-2.4); AST(SGOT) 16 U/L (15-37); Alanine Aminotransfer ALT/SGPT 26 U/L (13-56); Albumin, Serum 3.9 g/dL (3.2-5.0); Alkaline Phosphatase 38 U/L (45-117); Anion Gap 7 (5-15); BUN 10 mg/dL (7-18); BUN/Creat Ratio 12.2 RATIO (10-20); Calcium,Total 8.6 mg/dL (8.5-10.1); Chloride 108 mmol/L (98-107); Creatinine, Serum 0.82 mg/dL (0.55-1.02); EST Glomerular Filtration Rate 86 mL/min (>60); Est Glom Filt Rate - Afr Amer 104 mL/min (>60); Estimated Creatinine Clearance 85.05 ml/min; Globulin 3.2 g/dL (2.2-4.2); Glucose 115 mg/dL (74-106); Lipase 20 U/L (13-75); Potassium 3.3 mmol/L (3.5-5.1); Protein, Total 7.1 g/dL (6.4-8.2); Sodium Level 138 mmol/L (136-145); Troponin-I HS 5 pg/mL (3.0-54.0)
[2023-04-17 14:59] VITALS: RESP 16
== END 2023-04-17 15:00 | disposition home or self-care (01) ==
PROVIDERS: Emergency Provider Emergency Medicine; Visit Provider Emergency Medicine
DX: K27.9 Peptic ulcer, site unspecified, unspecified as acute or chronic, without hemorrhage or perforation (principal); F17.210 Nicotine dependence, cigarettes, uncomplicated; R10.13 Epigastric pain
CPT/HCPCS: 71275; 74174; 80053; 83690; 84484; 84703; 85025; 93005; 96361; 96374; 99282; J7030; Q9967; A4216; J2405

== ENCOUNTER → 2023-06-13 | Outpatient (CLI) | payer MEDICAID, SELFPAY ==
[2023-06-19 05:07] LABS: Beef <0.10 kU/L (Class 0); Chocolate <0.10 kU/L (Class 0); Codfish <0.10 kU/L (Class 0); Corn <0.10 kU/L (Class 0); Egg, Whole <0.10 kU/L (Class 0); Milk (Cow) <0.10 kU/L (Class 0); Mussels <0.10 kU/L (Class 0); Peanut <0.10 kU/L (Class 0); Pork <0.10 kU/L (Class 0); Salmon <0.10 kU/L (Class 0); Shrimp <0.10 kU/L (Class 0); Soybean <0.10 kU/L (Class 0); Tuna <0.10 kU/L (Class 0); Wheat <0.10 kU/L (Class 0)
== END | disposition home or self-care (01) ==
LOC: LAB 12:54
PROVIDERS: Referring Provider Internal Medicine Gastroenterology; Visit Provider Internal Medicine Gastroenterology
DX: F12.188 Cannabis abuse with other cannabis-induced disorder (principal)
CPT/HCPCS: 36415; 86003; 86005

== ENCOUNTER 2023-07-25 00:06 | Emergency (ER) | payer MEDICAID, SELFPAY ==
[2023-07-25 00:07] VITALS: BP 113/65; PULSE 64; RESP 18; TEMP 35.9; O2SAT 97; BMI 31.4
--- OUTSIDE RECORDS SUMMARY | 2023-07-25 00:16 | XMS RPT_ITS | CCD ---
Author Name Unknown Address [facility] [place] [address] Organization [facility] Care Team Providers Care Spinner Cap Frame Name Role Phone Unavailable Primary Care Provider UnavailANGELA Ball Referring Unavailable ANGELA PEDRAZA Attending Unavailable ADRI BURKETT Referring Unavailable BURKETTADRI Referring Unavailable BURKETTADRI Referring Unavailable BURKETT, AMY Attending Unavailable Allergies Allergy Classification Reported Allergen(s) Allergy Type Date of Onset Reaction(s) Facility (5 sources) Chocolate; Translations: [CHOCOLATE] Food Allergy 02-26-2014 Other: See Comments [facility] (12 sources) Meperidine; Translations: [MEPERIDINE (PF)] Drug Allergy 10-04-2014 Other: See Comments [facility] Work Phone: Medications Current Medications Medication Drug Class(es) Dates Sig (Normalized) Sig (Original) ciprofloxacin 500 mg oral tablet (1 source) Quinolone Antimicrobial Start: 02-16-2022 End: 02-21-2022 take 1 tablet by mouth twice daily ciprofloxacin HCl (CIPRO) 500 mg tablet Take 1 tablet by mouth twice daily for 5 days. 10 tablet 0 02/16/2022 02/21/2022 Active Completed/Discontinued Medications Medication Drug Class(es) Dates Sig (Normalized) Sig (Original) cyclobenzaprine hydrochloride 10 mg oral tablet (4 sources) Muscle Relaxant Start: 04-16-2023 cyclobenzaprine (FLEXERIL) 10 mg tablet hydrocortisone 25 mg/ml topical cream (3 sources) Corticosteroid Start: 07-05-2022 End: 07-19-2022 hydrocortisone (ANUSOL-HC) 2.5 % rectal cream by RECTAL route twice daily for 14 days. 28 g 0 07/05/2022 07/19/2022 Problems Active Problems Problem Classification Problem Date Documented Date Episodic/Chronic Immunizations and screening for infectious disease (1 source) Patient encounter status; Translations: [Encounter for screening for infections with a predominantly sexual mode of transmission] 04-19-2023 Episodic Inflammatory diseases of female pelvic organs (1 source) Acute vaginitis; Translations: [Acute vaginitis] 04-18-2023 Episodic Nonmalignant breast conditions (4 sources) Lump of axillary tail of left breast; Translations: [Unspecified lump in axillary tail of the left breast] Onset: 05-14-2023 04-18-2023 Episodic Nonspecific chest pain (1 source) Chest pain; Translations: [Chest pain, unspecified] 04-17-2023 Episodic Other female genital disorders (1 source) Dyspareunia; Translations: [Other specified dyspareunia] Chronic Other female genital disorders (1 source) Vaginal discharge; Translations: [Other specified noninflammatory disorders of vagina] Episodic Other female genital disorders (1 source) Enlarged uterus; Translations: [Hypertrophy of uterus] 04-18-2023 Episodic Other female genital disorders (1 source) Hypertrophy of uterus; Translations: [Enlarged uterus] Onset: 07-01-2023 Episodic Other skin disorders (1 source) Eruption; Translations: [Rash and other nonspecific skin eruption] Episodic Other skin disorders (1 source) Axillary hidradenitis suppurativa; Translations: [Hidradenitis suppurativa] 04-20-2023 Episodic Ovarian cyst (1 source) Cyst of left ovary; Translations: [Unspecified ovarian cyst, left side] 07-03-2023 Episodic Past or Other Problems Problem Classification Problem Date Documented Da te Episodic/Chronic Abdominal pain (4 sources) Pain in female pelvis; Translations: [Pelvic and perineal pain] Onset: 07-06-2022 Episodic Results Test Name Value Interpretation Reference Range Facil ity Vital Signs Date Time Vital Sign Value Performing Clinician Faci litmiri 04-18-2023 16:08-0400 Body weight 78.93 kg Adri Burkett APRN.CNP Work Phone: [facility] 04-18-2023 16:08-0400 Diastolic blood pressure 60 mm[Hg] Adri Burkett APRN.CNP Work Phone: [facility] 04-18-2023 16:08-0400 Systolic blood pressure 100 mm[Hg] Adri Burkett PORTABLE TRACK LINE MARKER.TRAUMA DOCTOR Work Phone: [facility] 10-11-2022 [id number] Body temperature 97.39 [degF] Maggie Gee PORTABLE TRACK LINE MARKER.TRAUMA DOCTOR Work Phone: [facility] 10-11-2022 [id number] Body weight 79.83 kg Maggie Painting-Dru PORTABLE TRACK LINE MARKER.TRAUMA DOCTOR Work Phone: [facility] 10-11-2022 10:21-0400 Diastolic blood pressure 88 mm[Hg] Maggie Ortizler-Dru PORTABLE TRACK LINE MARKER.TRAUMA DOCTOR Work Phone: [facility] 10-11-2022 10:21-0400 Heart rate 108 /min Maggie Painting-Dru PORTABLE TRACK LINE MARKER.TRAUMA DOCTOR Work Phone: [facility] 10-11-2022 [id number] Respiratory rate 19 /min Maggie Painting-Dru PORTABLE TRACK LINE MARKER.TRAUMA DOCTOR Work Phone: [facility] 10-11-2022 [id number] SaO2% (BldA) [Mass fraction] 97 % Maggie Painting-Dru PORTABLE TRACK LINE MARKER.TRAUMA DOCTOR Work Phone: [facility] 10-11-2022 10:21-0400 Systolic blood pressure 120 mm[Hg] Maggie Painting-Dru PORTABLE TRACK LINE MARKER.TRAUMA DOCTOR Work Phone: [facility] 07-05-2022 09:25-0500 Body weight 77.07 kg Angela Pedraza PORTABLE TRACK LINE MARKER.CNM Work Phone: [facility] 07-05-2022 09:25-0500 Diastolic blood pressure 62 mm[Hg] Angela Cubats PORTABLE TRACK LINE MARKER.CNM Work Phone: [facility] 07-05-2022 09:25-0500 Systolic blood pressure 102 mm[Hg] Angela Plotts PORTABLE TRACK LINE MARKER.CNM Work Phone: [facility] Encounters Encounter Date Encounter Type Care Provider Facility Start: 07-03-2023 Telephone encounter Abril lopez PORTABLE TRACK LINE MARKER.TRAUMA DOCTOR Work Phone: [facility] Procedures Date Procedure Procedure Detail Performing Clinician Start: 05-14-2023 Us breast uni real t kwadwo with image limited Adri Burkett APRN.TRAUMA DOCTOR Work Phone: Start: 05-14-2023 Digital breast tomosynthesis bilateral Adri Burkett APRN.TRAUMA DOCTOR Work Phone: Start: 04-18-2023 BACTERIAL VAGINOSIS NAAT Adri Burkett PORTABLE TRACK LINE MARKER.TRAUMA DOCTOR Work Phone: Start: 04-18-2023 Iadna chlamydia trac homatis amplified probe tq Adri Burkett PORTABLE TRACK LINE MARKER.TRAUMA DOCTOR Work Phone: Start: 07-06-2022 Us transvaginal Avinash Pedraza PORTABLE TRACK LINE MARKER.CNM Work Phone: Start: 07-05-2022 Urnls dip stick/tabl et rgnt auto w/o microscopy Angela Pedraza PORTABLE TRACK LINE MARKER.CNIssa Work Phone: Plan of Treatment Date Care Activity Detail Author Start: 10-27-2025 HPV TESTING HPV TESTING [facility] Start: 10-27-2025 PAP TESTING PAP TESTING [facility] Start: 10-27-2025 Screening for malign ant neoplasm of cervix [facility] Start: 06-24-2023 Depression Assessment Depression Ass essment [facility] Start: 04-18-2023 End: 04-18-2024 PELVIC US WHI PELVIC US WHI Anc Imaging Routine Pelvic pain in female Enlarged uterus Expected: 04/18/2023, Expires: 04/18/2024 [facility] Work Phone: Immunizations Immunization Date Immunization Notes Care Provider Fa samantha 03-19-2018 influenza virus vacc ine, unspecified formulation Amy Hein PORTABLE TRACK LINE MARKER.TRAUMA DOCTOR Work Phone: [facility] Payers Date Payer Category Payer Medicaid [id number] 2019 Medicaid [id number] 2019 Medicaid [id number] Social History Date Type Detail Facility Start: 02-14-2022 Tobacco smoking stat us NHIS Ex-smoker [facility] Work Phone: End: 06-23-2021 History of tobacco use Current smoker [facility] Work Phone: End: 06-23-2021 History of tobacco use Cigarette Smoker [facility] Work Phone: Start: 02-14-2022 End: 04-18-2023 Cigarettes smoked current (pack per day) - Reported 1 [facility] Start: 02-14-2022 Tobacco use and exposure Smokeless tobacco non-user [facility] Work Phone: History of tobacco use Chews Tobacco [facility] Work Phone: Start: 02-14-2022 End: 04-19-2023 Alcohol intake Current drinker of alcohol (finding) [facility] Start: 02-14-2022 Tobacco Comment down to 1/2 pa ck per day [facility] Start: 1990 Sex Assigned At Not on file [facility] Start: 10-11-2022 End: 04-18-2023 Tobacco use panel [facility] National Score (1-10 0), lower number is lower risk 48 [facility] Clinical Notes 02-15-2022 to 07-03-2023 Telephone Encounter - Vanessa Giraldo RN - 07/03/2023 8:47 AM ESTTelephone Encounter - Abril Carpenter APRN.CNP - 07/03/2023 8:10 AM Debbie Pierson RDMS - 05/14/2023 2:00 PM EST Note Date & Type Note Facility 07-03-2023 Miscellaneous Notes Formattin g of this note might be different from the original. Patient notified and voiced understanding. Transferred to [facility] to schedule repeat ultrasound. Vanessa Giraldo RN AG pt. Please let the pt know that her US shows a small cyst on the left ovary. She should repeat the US in 10-12 weeks. Abril Carpenter APRN.CNP documented in this encounter [facility] 07-01-2023 Note HNO ID: [id number] Author: DEBBIE CERRATO RDMS Service: ? Author Type: Health Companion Type: Progress Notes Filed: 07/01/2023 15:47 Note Text: Radiology Service Progress Note PATIENT NAME: Patience Gudino DATE OF SERVICE: July 01, 2023 TIME: 3:46 PM PATIENT IDENTITY VERIFICATION COMPLETED USING TWO (2) IDENTIFIERS: Name and Date of confirmed by patient verbally. FALL SCREENING: Has the patient had 2 falls in the last year or 1 fall with injury or currently using an Ambulatory Assistive Device (Walker, Cane, Wheelchair, Crutches, etc.)? No PATIENT GENDER DATA: Female. status: : No status: NO. PATIENT RELEVANT IMPLANT DATA REVIEWED: Not Applicable RADIOLOGY DEPARTMENT: Ultrasound PERIPHERAL IV DATA: Not applicable SIGNED BY: Debbie Cerrato RDMS July 01, 2023 3:46 PM [facility] 05-14-2023 Note HNO ID: [id number] Author: Debbie Cerrato RDMS Service: ? Author Type: Health Companion Type: Progress Notes Filed: 05/14/2023 2:12 PM Note Text: Radiology Service Progress Note PATIENT NAME: Patience Gudino DATE OF SERVICE: May 14, 2023 TIME: 2:12 PM PATIENT IDENTITY VERIFICATION COMPLETED USING TWO (2) IDENTIFIERS: Name and Date of confirmed by patient verbally. FALL SCREENING: Has the patient had 2 falls in the last year or 1 fall with injury or currently using an Ambulatory Assistive Device (Walker, Cane, Wheelchair, Crutches, etc.)? No PATIENT GENDER DATA: Female. status: : No status: NO. PATIENT RELEVANT IMPLANT DATA REVIEWED: Not Applicable RADIOLOGY DEPARTMENT: Ultrasound PERIPHERAL IV DATA: Not applicable SIGNED BY: Debbie Cerrato RDMS May 14, 2023 2:12 PM [facility] 05-14-2023 Note HNO ID: [id number] Author: Ciarra Dior Mammo [employer] Service: ? Author Type: Health Companion Type: Progress Notes Filed: 05/14/2023 2:01 PM Note Text: Radiology Service Progress Note PATIENT NAME: Patience Gudino DATE OF SERVICE: May 14, 2023 TIME: 2:00 PM PATIENT IDENTITY VERIFICATION COMPLETED USING TWO (2) IDENTIFIERS: Name and Date of confirmed by patient verbally. FALL SCREENING: Has the patient had 2 falls in the last year or 1 fall with injury or currently using an Ambulatory Assistive Device (Walker, Cane, Wheelchair, Crutches, etc.)? No PATIENT GENDER DATA: Female. status: : No status: NO. PATIENT RELEVANT IMPLANT DATA REVIEWED: Not Applicable RADIOLOGY DEPARTMENT: Mammography PERIPHERAL IV DATA: Not applicable SIGNED BY: Ciarra Dior [employer] May 14, 2023 2:00 PM [facility] 05-14-2023 History of Presen t illness Narrative Radiology Service Progress Note PATIENT NAME: Patience Gudino DATE OF SERVICE: May 14, 2023 TIME: 2:12 PM PATIENT IDENTITY VERIFICATION COMPLETED USING TWO (2) IDENTIFIERS: Name and Date of confirmed by patient verbally. FALL SCREENING: Has the patient had 2 falls in the last year or 1 fall with injury or currently using an Ambulatory Assistive Device (Walker, Cane, Wheelchair, Crutches, etc.)? No PATIENT GENDER DATA: Female. status: : No status: NO. PATIENT RELEVANT IMPLANT DATA REVIEWED: Not Applicable RADIOLOGY DEPARTMENT: Ultrasound PERIPHERAL IV DATA: Not applicable SIGNED BY: Debbie Cerrato RDMS May 14, 2023 2:12 PM documented in this encounter [facility] 05-14-2023 History of Presen t illness Narrative Radiology Service Progress Note PATIENT NAME: Patience Gudino DATE OF SERVICE: May 14, 2023 TIME: 2:00 PM PATIENT IDENTITY VERIFICATION COMPLETED USING TWO (2) IDENTIFIERS: Name and Date of confirmed by patient verbally. FALL SCREENING: Has the patient had 2 falls in the last year or 1 fall with injury or currently using an Ambulatory Assistive Device (Walker, Cane, Wheelchair, Crutches, etc.)? No PATIENT GENDER DATA: Female. status: : No status: NO. PATIENT RELEVANT IMPLANT DATA REVIEWED: Not Applicable RADIOLOGY DEPARTMENT: Mammography PERIPHERAL IV DATA: Not applicable SIGNED BY: Maribel Juarezo Keiko May 14, 2023 2:00 PM documented in this encounter [facility] 04-18-2023 Note HNO ID: [id number] Author: Adri Burkett APRN.TRAUMA DOCTOR Service: ? Author Type: Nurse Practitioner Type: Progress Notes Filed: 04/20/2023 3:03 PM Note Text: Guest Service Team Leader offered: Patient declines. Patience Gudino is a 32 year old female who presents for problem visit ED follow-up for abdominal pain HPI: Patience was evaluated in [facility] ED 04/17 and 04/18 for generalized abdominal pain. Diagnosed with and treated for gastritis vs PUD and will follow up with Dr Wild. States also has had vaginal discharge, spotting, odor, irritation and itching but that this was not addressed in ED. History of recurrent BV and she has similar symptoms. Sexually active with one male partner of 1 year, unprotected. No history of STD. Contraception - tubal sterilization. Serum test negative. CXR normal. She was unaware of questionable mass left axillary region but states she often does get lumps that can be painful in armpits. No history of HS. 04/17/2023 CTA CHEST, ABDOMEN AND PELVIS WITH CONTRAST Impression: Normal-contrast enhanced CT of the chest. Normal contrast-enhanced CT of the abdomen and pelvis. CHEST: Questionable 2.5 cm x 2.5 cm mass in the axillary region of the left breast PELVIC STRUCTURES: Normal bladder. Small umbilical containing fat. Enlarged uterus. Follicles are seen in both ovaries. 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 No pertinent family history. Social History Tobacco Use Smoking status: Former Packs/day: 1.00 Years: 10.00 Additional pack years: 0.00 Total pack years: 10.00 Types: Cigarettes Quit date: 06/23/2021 Years since quittin.8 Smokeless tobacco: Never Tobacco comments: down to 1/2 pack per day Vaping Use Vaping Use: current everyday user Substance Use Topics Alcohol use: Yes Drug use: Never Current Outpatient Medications Medication Sig triamcinolone (KENALOG) 0.025 % cream Apply 1 application to affected area twice daily. L. acidophilus-L. rhamnosus 15 billion cell cap Take 1 capsule by mouth once daily. FLORAJEN WOMEN. If on antibiotic, take at least 1-2 hours before or after antibiotic. KEEP REFRIGERATED (Patient not taking: Reported on 08/03/2021 ) No current facility-administered medications for this visit. Allergies As of Date: 04/18/2023 Allergen Noted Reaction DEMEROL [MEPERIDINE (PF)] 10/04/2014 Other: See Comments Fully Assessed 10/11/2022 REVIEW OF SYSTEMS Abdomen: No bloating, early satiety, indigestion, or increased flatulence. No abdominal pain, nausea, vomiting, diarrhea, or constipation. Bladder: No dysuria, gross hematuria, urinary frequency, urinary urgency, or incontinence. Breast: No breast lumps, nipple d/c, overlying skin changes, redness or skin retraction. Allergies and current medication updated:Yes EXAM: BP 100/60 Wt 174 lb (78.9kg) LMP 04/04/2023 GENERAL: pleasant, female in no apparent distress DERMATOLOGY: several scars consistent with HS noted to bilateral axillae and inner thighs BREAST: soft, non-tender, symmetric, no dominant mass, normal nipple-areolar complex, no lymphadenopathy, and no nipple discharge. Non-tender mass to left Mid axillary region. CHEST: Normal inspiratory effort ABDOMEN: soft, no masses, and Mild tenderness in Generalized PELVIC: external genitalia normal, normal Bartholin's glands, urethra, [place]ph[place]'s glands, no vulvar lesions, no cervical lesions, clear discharge present, normal appearing perineal body and perianal region BIMANUAL: uterus normal size, shape and consistency, no adnexal masses, no cervical motion tenderness, and Mild tenderness NEURO: alert and oriented x3,exam grossly non-focal ASSESSMENT/PLAN: 1. Pelvic pain in female - ICD9: 625.9, ICD10: R10.2 (primary diagnosis) - IKER/TRICHOMONAS NAAT - BACTERIAL VAGINOSIS NAAT - GONORRHEA/CHLAMYDIA NAAT - US FEMALE PELVIS TRANSVAG - PELVIC US WHI 2. Acute vaginitis - ICD9: 616.10, ICD10: N76.0 - IKER/TRICHOMONAS NAAT - BACTERIAL VAGINOSIS NAAT - GONORRHEA/CHLAMYDIA NAAT 3. Enlarged uterus - ICD9: 621.2, ICD10: N85.2 - on CT - US FEMALE PELVIS TRANSVAG - PELVIC US WHI 4. Mass of axillary tail of left breast - ICD9: 611.72, ICD10: N63.32 - non-tender mass mid axillary. Several scars bilateral axillae and groin consistent with HS. - CONSULT TO DERMATOLOGY - US BREAST LTD LEFT - HERBER DIAGNOSTIC BILATERAL 5. Screen for STD (sexually transmitted disease) - ICD9: V74.5, ICD10: Z11.3 - IKER/TRICHO (more content not included)... [facility] 04-18-2023 History of Presen t illness Narrative Guest Service Team Leader offered: Patient declines. Patience Gudino is a 32 year old female who presents for problem visit ED follow-up for abdominal pain HPI: Patience was evaluated in [facility] ED 04/17 and 04/18 for generalized abdominal pain. Diagnosed with and treated for gastritis vs PUD and will follow up with Dr Wild. States also has had vaginal discharge, spotting, odor, irritation and itching but that this was not addressed in ED. History of recurrent BV and she has similar symptoms. Sexually active with one male partner of 1 year, unprotected. No history of STD. Contraception - tubal sterilization. Serum test negative. CXR normal. She was unaware of questionable mass left axillary region but states she often does get lumps that can be painful in armpits. No history of HS. 04/17/2023 CTA CHEST, ABDOMEN AND PELVIS WITH CONTRAST Impression: Normal-contrast enhanced CT of the chest. Normal contrast-enhanced CT of the abdomen and pelvis. CHEST: Questionable 2.5 cm x 2.5 cm mass in the axillary region of the left breast PELVIC STRUCTURES: Normal bladder. Small umbilical containing fat. Enlarged uterus. Follicles are seen in both ovaries. 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 No pertinent family history. Social History Tobacco Use Smoking status: Former Packs/day: 1.00 Years: 10.00 Additional pack years: 0.00 Total pack years: 10.00 Types: Cigarettes Quit date: 06/23/2021 Years since quittin.8 Smokeless tobacco: Never Tobacco comments: down to 1/2 pack per day Vaping Use Vaping Use: current everyday user Substance Use Topics Alcohol use: Yes Drug use: Never Current Outpatient Medications Medication Sig triamcinolone (KENALOG) 0.025 % cream Apply 1 application to affected area twice daily. L. acidophilus-L. rhamnosus 15 billion cell cap Take 1 capsule by mouth once daily. FLORAJEN WOMEN. If on antibiotic, take at least 1-2 hours before or after antibiotic. KEEP REFRIGERATED (Patient not taking: Reported on 08/03/2021 ) No current facility-administered medications for this visit. Allergies As of Date: 04/18/2023 Allergen Noted Reaction DEMEROL [MEPERIDINE (PF)] 10/04/2014 Other: See Comments Fully Assessed 10/11/2022 REVIEW OF SYSTEMS Abdomen: No bloating, early satiety, indigestion, or increased flatulence. No abdominal pain, nausea, vomiting, diarrhea, or constipation. Bladder: No dysuria, gross hematuria, urinary frequency, urinary urgency, or incontinence. Breast: No breast lumps, nipple d/c, overlying skin changes, redness or skin retraction. Allergies and current medication updated:Yes EXAM: BP 100/60 Wt 174 lb (78.9kg) LMP 04/04/2023 GENERAL: pleasant, female in no apparent distress DERMATOLOGY: several scars consistent with HS noted to bilateral axillae and inner thighs BREAST: soft, non-tender, symmetric, no dominant mass, normal nipple-areolar complex, no lymphadenopathy, and no nipple discharge. Non-tender mass to left Mid axillary region. CHEST: Normal inspiratory effort ABDOMEN: soft, no masses, and Mild tenderness in Generalized PELVIC: external genitalia normal, normal Bartholin's glands, urethra, [place]'s glands, no vulvar lesions, no cervical lesions, clear discharge present, normal appearing perineal body and perianal region BIMANUAL: uterus normal size, shape and consistency, no adnexal masses, no cervical motion tenderness, and Mild tenderness NEURO: alert and oriented x3,exam grossly non-focal ASSESSMENT/PLAN: 1. Pelvic pain in female - ICD9: 625.9, ICD10: R10.2 (primary diagnosis) - IKER/TRICHOMONAS NAAT - BACTERIAL VAGINOSIS NAAT - GONORRHEA/CHLAMYDIA NAAT - US FEMALE PELVIS TRANSVAG - PELVIC US WHI 2. Acute vaginitis - ICD9: 616.10, ICD10: N76.0 - IKER/TRICHOMONAS NAAT - BACTERIAL VAGINOSIS NAAT - GONORRHEA/CHLAMYDIA NAAT 3. Enlarged uterus - ICD9: 621.2, ICD10: N85.2 - on CT - US FEMALE PELVIS TRANSVAG - PELVIC US WHI 4. Mass of axillary tail of left breast - ICD9: 611.72, ICD10: N63.32 - non-tender mass mid axillary. Several scars bilateral axillae and groin consistent with HS. - CONSULT TO DERMATOLOGY - US BREAST LTD LEFT - HERBER DIAGNOSTIC BILATERAL 5. Screen for STD (sexually transmitted disease) - ICD9: V74.5, ICD10: Z11.3 - IKER/TRICHOMONAS NAAT - GONORRHEA/CHLAMYDIA NAAT 6. Axillary hidradenitis suppurativa - ICD9: 705.83, ICD10: L73.2 - Several scars bilateral axillae and groin consistent with HS. Family members also get similar lumps and scarring. - CONSULT TO DERMATOLOGY Will notify of results. Follow- up as needed. Adri Burkett APRN.CNP Medical Decision Making: Problems: Moderate: New problem with uncertain prognosis Data: Unique source(s) for external note(s) reviewed: 1 Unique test result(s) reviewed: 3+ Unique test(s) ordered: 3+ Medical Decision Making Level: 4 - Moderate documented in this encounter [facility] 04-17-2023 Note HNO ID: [id number] Author: Amy Hein APRN.TRAUMA DOCTOR Service: ? Author Type: Nurse Practitioner Type: Progress Notes Filed: 04/17/2023 11:48 AM Note Text: Patient came in with complaints of chest pain. Patient says she is having left arm pain left jaw pain and upper pressure in her left back. Patient says this been going on a couple days and seems to be getting worse. Patient went to the ER yesterday and they did do an x-ray with no findings. They did not do a cardiac work-up. Patient was offered a squad patient declined to the squad. Patient will go over there and follow-up. Patient was extremely tearful. [facility] 04-17-2023 History of Presen t illness Narrative Patient came in with complaints of chest pain. Patient says she is having left arm pain left jaw pain and upper pressure in her left back. Patient says this been going on a couple days and seems to be getting worse. Patient went to the ER yesterday and they did do an x-ray with no findings. They did not do a cardiac work-up. Patient was offered a squad patient declined to the squad. Patient will go over there and follow-up. Patient was extremely tearful. documented in this encounter [facility] 10-11-2022 Note HNO ID: [id number] Author: Maggie eGe APRN.TRAUMA DOCTOR Service: ? Author Type: Nurse Practitioner Type: Progress Notes Filed: 10/11/2022 10:47 AM Note Text: Subjective Rash Pertinent negatives include no cough, fever, shortness of breath or sore throat. Patience Gudino is a 32 year old female who presents with a rash on her bilateral arms, thigh, back and face. This has been present for a week. She has used anti itch cream without relief. She states the rash is itchy. She has not had fever. She denies shortness of breath or sore throat. She denies any new lotions, soaps, detergents, etc. Review of Systems Constitutional: Negative for chills and fever. HENT: Negative for sore throat. Respiratory: Negative for cough, shortness of breath and wheezing. Cardiovascular: Negative. Musculoskeletal: Negative for myalgias. Skin: Positive for itching and rash. BP 120/88 Pulse 108 Temp 36.3 ?C (97.4 ?F) Resp 19 Wt 79.8 kg (176 lb) LMP 06/11/2022 (Within Days) SpO2 97% BMI 29.74 kg/m? PAST MEDICAL HISTORY Diagnosis Date GERD (gastroesophageal reflux disease) PAST SURGICAL HISTORY Procedure Laterality Date CHOLECYSTECTOMY TUBAL LIGATION ALLERGIES Demerol [Meperidine (Pf)] MEDICATIONS predniSONE (DELTASONE) 10 mg tablet Take 4 tabs daily for 3 days, then 2 tabs daily for 3 days, then 1 tab daily for 3 days with food. triamcinolone (KENALOG) 0.025 % cream Apply 1 application to affected area twice daily. L. acidophilus-L. rhamnosus 15 billion cell cap Take 1 capsule by mouth once daily. FLORAJEN WOMEN. If on antibiotic, take at least 1-2 hours before or after antibiotic. KEEP REFRIGERATED (Patient not taking: Reported on 08/03/2021 ) No family history on file. Social History Tobacco Use Smoking status: Former Packs/day: 1.00 Years: 10.00 Pack years: 10.00 Types: Cigarettes Quit date: 06/23/2021 Years since quittin.3 Smokeless tobacco: Never Tobacco comments: down to 1/2 pack per day Vaping Use Vaping Use: current everyday user Substance Use Topics Alcohol use: Yes Drug use: Never Objective Physical Exam Vitals and nursing note reviewed. Constitutional: Appearance: Normal appearance. HENT: Mouth/Throat: Pharynx: Uvula midline. Cardiovascular: Rate and Rhythm: Normal rate and regular rhythm. Heart sounds: Normal heart sounds. Pulmonary: Effort: Pulmonary effort is normal. No respiratory distress. Breath sounds: Normal breath sounds. No wheezing or rales. Musculoskeletal: Cervical back: Neck supple. Lymphadenopathy: Cervical: No cervical adenopathy. Skin: General: Skin is warm and dry. Findings: No erythema or rash. Neurological: Mental Status: She is alert. ASSESSMENT/PLAN: 1. Rash - ICD9: 782.1, ICD10: R21 - PREDNISONE 10 MG TABLET - TRIAMCINOLONE ACETONIDE 0.025 % TOPICAL CREAM - Follow-up with your PCP in 3-5 days if symptoms have not improved or sooner if symptoms worsen - Discussed red flags and need for immediate medical evaluation if any occur. - Discussed supportive care treatment with fluids, rest and analgesia. - Discussed expected course of illness Maggie Gee APRN.[facility] 10-11-2022 History of Presen t illness Narrative Subjective Rash Pertinent negatives include no cough, fever, shortness of breath or sore throat. Patience Gudino is a 32 year old female who presents with a rash on her bilateral arms, thigh, back and face. This has been present for a week. She has used anti itch cream without relief. She states the rash is itchy. She has not had fever. She denies shortness of breath or sore throat. She denies any new lotions, soaps, detergents, etc. Review of Systems Constitutional: Negative for chills and fever. HENT: Negative for sore throat. Respiratory: Negative for cough, shortness of breath and wheezing. Cardiovascular: Negative. Musculoskeletal: Negative for myalgias. Skin: Positive for itching and rash. BP 120/88 Pulse 108 Temp 36.3 C (97.4 F) Resp 19 Wt 79.8 kg (176 lb) LMP 06/11/2022 (Within Days) SpO2 97% BMI 29.74 kg/m PAST MEDICAL HISTORY Diagnosis Date GERD (gastroesophageal reflux disease) PAST SURGICAL HISTORY Procedure Laterality Date CHOLECYSTECTOMY TUBAL LIGATION ALLERGIES Demerol [Meperidine (Pf)] MEDICATIONS predniSONE (DELTASONE) 10 mg tablet Take 4 tabs daily for 3 days, then 2 tabs daily for 3 days, then 1 tab daily for 3 days with food. triamcinolone (KENALOG) 0.025 % cream Apply 1 application to affected area twice daily. L. acidophilus-L. rhamnosus 15 billion cell cap Take 1 capsule by mouth once daily. FLORAJEN WOMEN. If on antibiotic, take at least 1-2 hours before or after antibiotic. KEEP REFRIGERATED (Patient not taking: Reported on 08/03/2021 ) No family history on file. Social History Tobacco Use Smoking status: Former Packs/day: 1.00 Years: 10.00 Pack years: 10.00 Types: Cigarettes Quit date: 06/23/2021 Years since quittin.3 Smokeless tobacco: Never Tobacco comments: down to 1/2 pack per day Vaping Use Vaping Use: current everyday user Substance Use Topics Alcohol use: Yes Drug use: Never Objective Physical Exam Vitals and nursing note reviewed. Constitutional: Appearance: Normal appearance. HENT: Mouth/Throat: Pharynx: Uvula midline. Cardiovascular: Rate and Rhythm: Normal rate and regular rhythm. Heart sounds: Normal heart sounds. Pulmonary: Effort: Pulmonary effort is normal. No respiratory distress. Breath sounds: Normal breath sounds. No wheezing or rales. Musculoskeletal: Cervical back: Neck supple. Lymphadenopathy: Cervical: No cervical adenopathy. Skin: General: Skin is warm and dry. Findings: No erythema or rash. Neurological: Mental Status: She is alert. ASSESSMENT/PLAN: 1. Rash - ICD9: 782.1, ICD10: R21 - PREDNISONE 10 MG TABLET - TRIAMCINOLONE ACETONIDE 0.025 % TOPICAL CREAM - Follow-up with your PCP in 3-5 days if symptoms have not improved or sooner if symptoms worsen - Discussed red flags and need for immediate medical evaluation if any occur. - Discussed supportive care treatment with fluids, rest and analgesia. - Discussed expected course of illness Maggie Gee APRN.CNP documented in this encounter [facility] 10-11-2022 Instructions Maggie Gee APRN.CNP - 10/11/2022 10:33 AM EDT ASSESSMENT/PLAN: 1. Rash - ICD9: 782.1, ICD10: R21 - PREDNISONE 10 MG TABLET - TRIAMCINOLONE ACETONIDE 0.025 % TOPICAL CREAM - Follow-up with your PCP in 3-5 days if symptoms have not improved or sooner if symptoms worsen - Discussed red flags and need for immediate medical evaluation if any occur. - Discussed supportive care treatment with fluids, rest and analgesia. - Discussed expected course of illness Maggie Gee APRN.CNP NONSPECIFIC RASH: Our exam shows you have a rash which has no clear cause. Rashes can result from infections, allergies, or irritation of the skin by chemicals or other environmental factors. Rashes can also result from scratching or rubbing the skin too much to relieve itching. Further medical examination may be needed to identify the specific cause and proper treatment of your skin rash. You should treat your rash as recommended by your doctor. If you have itching, you should avoid scratching as much as possible, as this further damages the skin. Ask your doctor or pharmacist if you have any questions about what topical medicines may help relieve your symptoms. Call your doctor right away if your rash is not better in 2-3 days, if it worsens, or if there are signs of infection (increased pain, redness, drainage or pus). documented in this encounter [facility] 07-10-2022 Miscellaneous Notes Formattin g of this note might be different from the original. Patient notified. Ashanti Multani RN Left message for patient to call office. Beth Dewitt RN ----- Message from Angela Pedraza APRN.CNM sent at 07/10/2022 8:46 AM EST ----- Urine culture is positive. Rx for Bactrim 800/160 mg PO BID x 3 days sent. Angela Pedraza APRN.CNM documented in this encounter [facility] 07-06-2022 Note HNO ID: [id number] Author: RT Evonne(R) Service: Radiology Author Type: Technologist Type: Progress Notes Filed: 07/06/2022 8:09 AM Note Text: Radiology Service Progress Note PATIENT NAME: Patience Gudino DATE OF SERVICE: July 06, 2022 TIME: 8:09 AM PATIENT IDENTITY VERIFICATION COMPLETED USING TWO (2) IDENTIFIERS: Name and Date of confirmed by patient verbally. FALL SCREENING: Has the patient had 2 falls in the last year or 1 fall with injury or currently using an Ambulatory Assistive Device (Walker, Cane, Wheelchair, Crutches, etc.)? No PATIENT GENDER DATA: Female. status: : No status: N/A PATIENT RELEVANT IMPLANT DATA REVIEWED: Not Applicable RADIOLOGY DEPARTMENT: Ultrasound PERIPHERAL IV DATA: Not applicable SIGNED BY: Angie Bajwa Rdms July 06, 2022 8:09 AM [facility] 07-06-2022 History of Presen t illness Narrative Radiology Service Progress Note PATIENT NAME: Patience Gudino DATE OF SERVICE: July 06, 2022 TIME: 8:09 AM PATIENT IDENTITY VERIFICATION COMPLETED USING TWO (2) IDENTIFIERS: Name and Date of confirmed by patient verbally. FALL SCREENING: Has the patient had 2 falls in the last year or 1 fall with injury or currently using an Ambulatory Assistive Device (Walker, Cane, Wheelchair, Crutches, etc.)? No PATIENT GENDER DATA: Female. status: : No status: N/A PATIENT RELEVANT IMPLANT DATA REVIEWED: Not Applicable RADIOLOGY DEPARTMENT: Ultrasound PERIPHERAL IV DATA: Not applicable SIGNED BY: Angie Bajwa Rdms July 06, 2022 8:09 AM documented in this encounter [facility] 07-05-2022 Note HNO ID: [id number] Author: Angela Pedraza APRN.CNM Service: ? Author Type: Casing Blower Type: Progress Notes Filed: 07/05/2022 3:59 PM Note Text: SUBJECTIVE: Patience Gudino is an 31 year old woman who presents with vaginitis. Symptoms include discharge described as malodorous, white, yellow and odor. Onset of symptoms 4 week(s) ago, waxing and waning. Also reporting pain after intercourse. No pain during but sharp pains after. Denies any bleeding with intercourse. Does have history of ovarian cysts. Predisposing factors: none Hx of previous vaginitis: Yes, Positive and treated for bacterial vaginosis 01/2021, 07/2021, and 01/2022. Currently taking probiotics. Sexually active: yes, single partner, contraception - tubal ligation. Verbally consents to STD screening today. Current Outpatient Medications on File Prior to Visit Medication Sig L. acidophilus-L. rhamnosus 15 billion cell cap Take 1 capsule by mouth once daily. FLORAJEN WOMEN. If on antibiotic, take at least 1-2 hours before or after antibiotic. KEEP REFRIGERATED (Patient not taking: Reported on 08/03/2021 ) No current facility-administered medications on file prior to visit. ALLERGIES Allergen Reactions Chocolate Other: See Comments nose bleeds Demerol [Meperidine* Other: See Comments drop in bp Social History Tobacco Use Smoking status: Former Packs/day: 1.00 Years: 10.00 Pack years: 10.00 Types: Cigarettes Quit date: 06/23/2021 Years since quittin.0 Smokeless tobacco: Never Tobacco comments: down to 1/2 pack per day Vaping Use Vaping Use: current everyday user Substance Use Topics Alcohol use: Yes Drug use: Never OBJECTIVE: BP 102/62 Wt 169 lb 14.4 oz (77.1 kg) LMP 06/11/2022 (Within Days) BMI 28.71 kg/m? Pelvic: Bimanual exam normal., Positive findings: vaginal discharge - yellow, watery, and moderate amount ASSESSMENT/PLAN: 1. Vaginal discharge - ICD9: 623.5, ICD10: N89.8 (primary diagnosis) - GC/CHLAMYDIA DNA DET - IKER / TRICHOMONAS AMPLIFICATION - BACTERIAL VAGINOSIS AMPLIFICATION - URINE CULTURE 2. Pelvic pain in female - ICD9: 625.9, ICD10: R10.2 - US FEMALE PELVIS TRANSVAG 3. Other specified dyspareunia - ICD9: 625.0, ICD10: N94.19 Will notify patient of results Reviewed vulvar hygiene and continuing daily probiotic Possible referral to Dr. Trujillo due to frequency of infections [facility] History of Presen t illness Narrative SUBJECTIVE: Patience Gudino is an 31 year old woman who presents with vaginitis. Symptoms include discharge described as malodorous, white, yellow and odor. Onset of symptoms 4 week(s) ago, waxing and waning. Also reporting pain after intercourse. No pain during but sharp pains after. Denies any bleeding with intercourse. Does have history of ovarian cysts. Predisposing factors: none Hx of previous vaginitis: Yes, Positive and treated for bacterial vaginosis 01/2021, 07/2021, and 01/2022. Currently taking probiotics. Sexually active: yes, single partner, contraception - tubal ligation. Verbally consents to STD screening today. Current Outpatient Medications on File Prior to Visit Medication Sig L. acidophilus-L. rhamnosus 15 billion cell cap Take 1 capsule by mouth once daily. FLORAJEN WOMEN. If on antibiotic, take at least 1-2 hours before or after antibiotic. KEEP REFRIGERATED (Patient not taking: Reported on 08/03/2021 ) No current facility-administered medications on file prior to visit. ALLERGIES Allergen Reactions Chocolate Other: See Comments nose bleeds Demerol [Meperidine* Other: See Comments drop in bp Social History Tobacco Use Smoking status: Former Packs/day: 1.00 Years: 10.00 Pack years: 10.00 Types: Cigarettes Quit date: 06/23/2021 Years since quittin.0 Smokeless tobacco: Never Tobacco comments: down to 1/2 pack per day Vaping Use Vaping Use: current everyday user Substance Use Topics Alcohol use: Yes Drug use: Never OBJECTIVE: BP 102/62 Wt 169 lb 14.4 oz (77.1 kg) LMP 06/11/2022 (Within Days) BMI 28.71 kg/m Pelvic: Bimanual exam normal., Positive findings: vaginal discharge - yellow, watery, and moderate amount ASSESSMENT/PLAN: 1. Vaginal discharge - ICD9: 623.5, ICD10: N89.8 (primary diagnosis) - GC/CHLAMYDIA DNA DET - IKER / TRICHOMONAS AMPLIFICATION - BACTERIAL VAGINOSIS AMPLIFICATION - URINE CULTURE 2. Pelvic pain in female - ICD9: 625.9, ICD10: R10.2 - US FEMALE PELVIS TRANSVAG 3. Other specified dyspareunia - ICD9: 625.0, ICD10: N94.19 Will notify patient of results Reviewed vulvar hygiene and continuing daily probiotic Possible referral to Dr. Trujillo due to frequency of infections Angela Pedraza APRN.CNM documented in this encounter [facility] 02-16-2022 Miscellaneous Notes Formattin g of this note might be different from the original. Attempted to call patient. [facility] [place] message sent. Ashanti Multani RN +UTI, I will send in some Cipro for her. She may also want to start a Monistat 7-day treatment to prevent a yeast infection due to being on 2 antibiotics. Abril Carpenter APRN.CNP Patient calling because she saw urine culture results on [facility]. Please review in CP's absence. Ashanti Multani RN documented in this encounter [facility] 02-15-2022 Miscellaneous Notes Formattin g of this note is different from the original. Patient notified of results, verbalizes understanding of instructions. The following approved medications have been transmitted electronically. Requested Prescriptions Signed Prescriptions Disp Refills metroNIDAZOLE (FLAGYL) 500 mg tablet 14 tablet 0 Sig: Take 1 tablet by mouth twice daily for 7 days. Authorizing Provider: ABRIL CARPENTER Pharmacy Information Pharmacy Address [id number] [phone] [place] [address] Vanessa Giraldo RN Left message to call office. Vanessa Giraldo RN BV positive. To treat with Flagyl 500mg PO BID for 7 days. 1) No alcohol during treatment and for 24 hours after last dose. 2) No intercourse during treatment. 3) Probiotic by mouth once daily for 30 days or as needed. Abril Carpenter APRN.CNP documented in this encounter [facility] Diagnosis Rash- Primary Rash and other nonspecific skin eruption [facility]* Diagnosis Chest pain, unspecified type- Primary [facility]* Diagnosis Pelvic pain in female- Primary Unspecified symptom associated with female genital organs Acute vaginitis Vaginitis and vulvovaginitis, unspecified Enlarged uterus Hypertrophy of uterus Mass of axillary tail of left breast Screen for STD (sexually transmitted disease) Screening examination for venereal disease Axillary hidradenitis suppurativa Hidradenitis [facility]* Diagnosis Pelvic pain in female Unspecified symptom associated with female genital organs documented in this encounter [facility] note* Diagnosis Mass of axillary tail of left breast documented in this encounter [facility] note* Diagnosis Mass of axillary tail of left breast documented in this encounter [facility] note* Diagnosis Ovarian cyst, left- Primary Other and unspecified ovarian cyst documented in this encounter [facility] for referral (narrative)* Diagnostic Procedure Only (Routine) - Authorized Specialty Diagnoses / Procedures Referred By Kristan gardner Referred To Contact [facility] IMAGING Diagnoses Pelvic pain in female Procedures US FEMALE PELVIS TRANSVAG US TRANSVAGINAL Angela Pedraza APRN.CNM [address] [place] [address] [facility] Referral ID Status Reason Start Date Expiration Date Visits Requested Visits Authorized [id number] Authorized Auto-Generat ed Referral 07/05/2022 08/04/2023 1 [facility] Diagnostic Procedure Only (Routine) - Closed Specialty Diagnoses / Procedures Referred By Kristan t Referred To Contact [facility] Diagnoses Pelvic pain in female Procedures US FEMALE PELVIS TRANSVAG US TRANSVAGINAL Angela Pedraza APRN.CNM [address] [place] [address] [place] [address] Referral ID Status Reason Start Date Expiration Date V isits Requested Visits Authorized [id number] Closed Auto-Generate d Referral 07/05/2022 08/04/2023 1 1 [facility] for referral (narrative)* Diagnostic Procedure Only (Routine) - Closed Specialty Diagnoses / Procedures Referred By Contac t Referred To Contact [facility] Diagnoses Mass of axillary tail of left breast Procedures US BREAST LTD LEFT US BREAST UNI REAL TIME WITH IMAGE LIMITED Adri Burkett APRN.TRAUMA DOCTOR [address] [place] [address] [facility] [address] [place] [address] Referral ID Status Reason Start Date Expiration Date V isits Requested Visits Authorized [id number] Closed Auto-Generate d Referral 04/18/2023 05/17/2024 1 1 [facility] for referral (narrative)* Diagnostic Procedure Only (Routine) - Pending Review Specialty Diagnoses / Procedures Referred By Contac t Referred To Contact US IMAGING Diagnoses Ovarian cyst, left Procedures US FEMALE PELVIS TRANSVAG US TRANSVAGINAL Abril Carpenter APRN.TRAUMA DOCTOR [address] [place] [address] [place] [address] Referral ID Status Reason Start Date Expiration Date Visits Requested Visits Authorized [id number] Pending Review Auto-Generat ed Referral 07/03/2023 08/01/2024 1 1 [facility] for visit Narrative* Diagnostic Procedure Only (Routine) - Closed Specialty Diagnoses / Procedures Referred By Contac t Referred To Contact US IMAGING Diagnoses Pelvic pain in female Procedures US FEMALE PELVIS TRANSVAG US TRANSVAGINAL Angela Pedraza APRN.CNM [address] [place] [address] [place] [address] Referral ID Status Reason Start Date Expiration Date V isits Requested Visits Authorized [id number] Closed Auto-Generate d Referral 07/05/2022 08/04/2023 1 1 [facility] Diagnostic Procedure Only (Routine) - Closed Specialty Diagnoses / Procedures Referred By Contac t Referred To Contact [facility] Diagnoses Mass of axillary tail of left breast Procedures HERBER DIAGNOSTIC BILATERAL DIAGNOSTIC MAMMOGRAPHY COMPUTER-AIDED DETCJ BI Adri Burkett APRN.TRAUMA DOCTOR [address] [place] [address] [facility] [address] [place] [address] Referral ID Status Reason Start Date Expiration Date V isits Requested Visits Authorized [id number] Closed Auto-Generate d Referral 04/18/2023 05/17/2024 1 1 [facility] Reason for Referral Specialty Diagnoses / Procedures Referred By Contac t Referred To Contact Allergy Diagnoses Rash Procedures CONSULT TO ALLERGY/IMMUNOLOGY OFFICE/OUTPATIENT [facility] 60-74 MINUTES Maggie Gee, SARA.TRAUMA DOCTOR [address] [place] [address] Referral ID Status Reason Start Date Expiration Date Visits Requested Visits Authorized [id number] Authorized PCP Requested Referral 10/11/2022 10/11/2023 1 1 Specialty Diagnoses / Procedures Referred By Contac t Referred To Contact Dermatology Diagnoses Mass of axillary tail of left breast Axillary hidradenitis suppurativa Procedures CONSULT TO DERMATOLOGY Adri Burkett APRN.TRAUMA DOCTOR [address] [place] [address] Referral ID Status Reason Start Date Expiration Date Visits Requested Visits Authorized [id number] Ref Not Required PCP Requested Referral 04/19/2024 1 1 Specialty Diagnoses / Procedures Referred By Contac t Referred To Contact [facility] Diagnoses Pelvic pain in female Enlarged uterus Procedures PELVIC US WHI US PELVIC NONOBSTETRIC REAL-TIME IMAGE COMPLETE Adri Burkett, SARA.TRAUMA DOCTOR [address] [place] [address] [facility] [address] [place] [address] Referral ID Status Reason Start Date Expiration Date Visits Requested Visits Authorized [id number] Pending Review Auto-Generat ed Referral 3 04/17/2024 1 1 Specialty Diagnoses / Procedures Referred By Contac t Referred To Contact [facility] IM[facility] Diagnoses Pelvic pain in female Enlarged uterus Procedures US FEMALE PELVIS TRANSVAG US TRANSVAGINAL Adri Burkett APRN.TRAUMA DOCTOR [address] [place] [address] [place] [address] Referral ID Status Reason Start Date Expiration Date Visits Requested Visits Authorized [id number] Authorized Auto-Generat ed Referral 3 05/17/2024 1 1 [facility] Diagnoses / [facility] Diagnoses Mass of axillary tail of left breast Procedures HERBER DIAGNOSTIC BILATERAL DIAGNOSTIC MAMMOGRAPHY COMPUTER-AIDED DETCJ BI Adri Burkett APRN.TRAUMA DOCTOR [address] [place] [address] [facility] [address] [place] [address] Referral ID Status Reason Start Date Expiration Date Visits Requested Visits Authorized [id number] Authorized Auto-Generat ed Referral 3 05/17/2024 1 1 Specialty Diagnoses / [facility] Diagnoses Mass of axillary tail of left breast Procedures US BREAST LTD LEFT US BREAST UNI REAL TIME WITH IMAGE LIMITED Adri Burkett APRN.TRAUMA DOCTOR [address] [place] [address] [facility] [address] [place] [address] Referral ID Status Reason Start Date Expiration Date Visits Requested Visits Authorized [id number] Authorized Auto-Generat ed Referral 3 05/17/2024 1 1 Summary Purpose Family History No Family History Records Found Advance Directives No Advanced Directives Records Found Additional Source Comments Source Comments (unrecognize d section and content) In the event this informatio n is protected by the Federal Confidentiality of Alcohol and Drug Abuse Patient Records regulations: The Federal rules restrict any use of the information to criminally investigate or prosecute any alcohol or drug abuse patient.[facility] the event this information is protected by the Federal Confidentiality of Alcohol and Drug Abuse Patient Records regulations: The Federal rules restrict any use of the information to criminally investigate or prosecute any alcohol or drug abuse patient.[facility] the event this information is protected by the Federal Confidentiality of Alcohol and Drug Abuse Patient Records regulations: The Federal rules restrict any use of the information to criminally investigate or prosecute any alcohol or drug abuse patient.[facility] the event this information is protected by the Federal Confidentiality of Alcohol and Drug Abuse Patient Records regulations: The Federal rules restrict any use of the information to criminally investigate or prosecute any alcohol or drug abuse patient.[facility] the event this information is protected by the Federal Confidentiality of Alcohol and Drug Abuse Patient Records regulations: The Federal rules restrict any use of the information to criminally investigate or prosecute any alcohol or drug abuse patient.[facility] the event this information is protected by the Federal Confidentiality of Alcohol and Drug Abuse Patient Records regulations: The Federal rules restrict any use of the information to criminally investigate or prosecute any alcohol or drug abuse patient.[facility] HealthIn the event this information is protected by the Federal Confidentiality of Alcohol and Drug Abuse Patient Records regulations: The Federal rules restrict any use of the information to criminally investigate or prosecute any alcohol or drug abuse patient.[facility] HealthIn the event this information is protected by the Federal Confidentiality of Alcohol and Drug Abuse Patient Records regulations: The Federal rules restrict any use of the information to criminally investigate or prosecute any alcohol or drug abuse patient.[facility] HealthIn the event this information is protected by the Federal Confidentiality of Alcohol and Drug Abuse Patient Records regulations: The Federal rules restrict any use of the information to criminally investigate or prosecute any alcohol or drug abuse patient.[facility] HealthIn the event this information is protected by the Federal Confidentiality of Alcohol and Drug Abuse Patient Records regulations: The Federal rules restrict any use of the information to criminally investigate or prosecute any alcohol or drug abuse patient.[facility] HealthIn the event this information is protected by the Federal Confidentiality of Alcohol and Drug Abuse Patient Records regulations: The Federal rules restrict any use of the information to criminally investigate or prosecute any alcohol or drug abuse patient.[facility] Reason for Visit (unrecogniz ed section and content) Reason Comments Urinary Problem Vaginal Discharge Discharge and odor Reason Comments Rash Rash on both arms, s mall patch on buttocks x 2 weeks Reason Comments ED Follow-up Reason Comments Radiology US Specialty Diagnoses / Procedures Referred By Contac t Referred To Contact [facility] Diagnoses Mass of axillary tail of left breast Procedures US BREAST LTD LEFT US BREAST UNI REAL TIME WITH IMAGE LIMITED Adri Burkett, PORTABLE TRACK LINE MARKER.TRAUMA DOCTOR [address] [place] [address] [facility] [address] [place] [address] Referral ID Status Reason Start Date Expiration Date V isits Requested Visits Authorized [id number] Closed Auto-Generate d Referral 04/18/2023 05/17/2024 1 1 Reason Comments Results INFORMATION SOURCE (unrecogn ized section and content) FOR RECORDS PERTAINING TO PATIENTS WHO ARE OR HAVE BEEN ENROLLED IN A CHEMICAL DEPENDENCY/SUBSTANCEABUSE PROGRAM, SOME INFORMATION MAY BE OMITTED. This clinical summary was aggregated from multiple sources. Caution should be exercised in using it in the provision of clinical care. This summary normalizes information from multiple sources, and as a consequence, information in this document may materially change the coding, format and clinical context of patient data. In addition, data may be omitted in some cases. CLINICAL DECISIONS SHOULD BE BASED ON THE PRIMARY CLINICAL RECORDS. [facility]. provides no warranty or guarantee of the accuracy or completeness of information in this document.
--- NOTE | 2023-07-25 00:26 | EDS_ITS ---
HPI HPI - GI History of Present Illness Chief Complaint: Abd Pain Informant: patient Abdominal Pain/Flank Pain Onset: Today Context: Sudden Onset Timing: Continuous Quality: Cramping Location: Epigastric, RUQ and LUQ Worsened by: - (Laying down) Relieved by: - (Sitting up) Nausea/Vomiting/Emesis GI Symptom: Positive for Nausea and Vomiting Onset: Today Quality: Positive for Blood streaks Episodes: 1 Diarrhea/Melena/Hematochezia GI Symptom: Positive for Diarrhea; Negative for Melena or Hematochezia Associated Symptoms Associated Symptoms: Positive for Frequency; Negative for Dysuria or Hematuria Narrative Narrative: Patient presents with abdominal pain, nausea, vomiting, and hematemesis. Patient states she had 1 episode of hematemesis. Patient states there is a small amount of blood in her emesis. Patient states that she had pain in her epigastric area that began tonight. Patient describes it as cramping. Patient states it is constant. Patient admits to some diarrhea. Patient denies any melena or hematochezia. Patient admits to some urinary frequency. Patient states her last menstrual period was approximately 1 week ago. Patient states she smoked marijuana earlier today. Patient started vomiting after that. [facility] Medical History Alcohol use Anxiety Easy bruising Excessive bleeding Gastric reflux GERD (gastroesophageal reflux disease) History of pain when walking History of ulceration Migraine headache Smoker Stomach ulcer Home Medications colestipol 1 gram tablet 1 g PO BID #60 tabs 01/24/23 [Rx Last Taken Unknown] ondansetron 4 mg disintegrating tablet 4 mg PO Q8H PRN PRN Nausea #10 tabs 04/17/23 [Rx Last Taken Unknown] sucralfate 1 gram tablet (Carafate) 1 g PO BID #30 tabs 04/17/23 [Rx Last Taken Unknown] hyoscyamine sulfate 0.375 mg tablet,extended release,12 hr 0.375 mg PO Q12H #60 tabs 05/13/23 [Rx Last Taken Unknown] omeprazole 40 mg capsule,delayed release 40 mg PO BID #60 caps 06/10/23 [Rx Last Taken Unknown] Allergy/AdvReac Type Severity Reaction Status Date / Time latex Allergy Rash Verified 04/17/23 11:56 meperidine HCl [From Demerol] Allergy Low blood Verified 04/17/23 11:56 pressure Surgical History History of tubal ligation S/P cholecystectomy Social History (Updated 07/25/23 @ 00:[address] Edwardo Mason DO) household members: children Smoking Status: Current every day smoker tobacco type: cigarettes alcohol intake: current alcohol intake frequency: a few times a week Alcohol type: beer substance use type: marijuana ROS ROS ED Constitutional Constitutional ED: Reports sweats; Denies chills or fever(s) Eyes Eyes: Reports blurry vision ENT ENT ED: Denies rhinorrhea or sore throat Cardiovascular Cardiovascular: Denies chest pain or palpitations Respiratory/Chest Respiratory/Chest: Denies cough or dyspnea Gastrointestinal Gastrointestinal: Reports abdominal pain, diarrhea, nausea and vomiting; Denies melena Genitourinary Genitourinary ED: Reports urinary frequency; Denies dysuria or hematuria Musculoskeletal Musculoskeletal: Denies back pain or neck pain Integumentary Denies abscess or rash Neurologic Neurologic: Denies headache(s) or weakness Allergic/Immunologic Allergic/Immunologic ED: Denies mouth swelling or urticaria EXAM Physical Exam Const Vital Signs: 07/25/23 00:07 Temperature 96.7 F L Temperature Source Temporal Pulse Rate 64 Respiratory Rate 18 Blood Pressure 113/65 Blood Pressure Mean 81 Pulse Ox 97 Oxygen Delivery Method Room Air Positive well nourished, well developed and obese General Appearance ED: well developed and NAD Nutritional Appearance: obese HEENT Reports moist mucous membranes Neck supple and no JVD Resp normal respiratory effort and clear to auscultation bilaterally Cardio regular rate and regular rhythm GI non-distended Palpation: soft and tender epigastric, LUQ and RUQ; Negative for guarding or rebound tenderness present Neuro CN's II-XII intact bilaterally, moves all extremities and no sensory deficits noted Sensorium / Orientation: alert Motor Exam: strength 5/5 throughout Psych mental status grossly normal MDM MDM MDM Narrative Medical decision making narrative: Differential diagnosis includes cannabis hyperemesis syndrome, gastritis, peptic ulcer disease, GERD, duodenal ulcer, pancreatitis, colitis, and pyelonephritis. CBC will be obtained to assess for leukocytosis and anemia. Comprehensive metabolic profile will be obtained to assess for hepatic function, renal function, and electrolyte abnormality. Lipase will be obtained to assess for pancreatitis. Urinalysis will be obtained to assess for urinary tract infection. Lab Data Attestation: I reviewed the patient's lab results. Lab results narrative: CBC was reviewed and was within normal limits. Comprehensive metabolic profile was reviewed and was within normal limits. Lipase was reviewed and was normal. Urinalysis was reviewed. There is no evidence of urinary tract infection or hematuria. Labs: Laboratory Results - last 24 hr 07/25/23 07/25/23 00:16 01:05 WBC 9.0 RBC 4.00 L Hgb 12.0 Hct 36.3 L MCV 90.8 MCH 30.0 MCHC 33.1 RDW Std Deviation 40.8 RDW Coeff of Cathleen 12.2 Plt Count 283 MPV 10.9 Immature Gran % (Auto) 0.200 Neut % (Auto) 53.6 Lymph % (Auto) 36.3 [place] % (Auto) 6.3 Eos % (Auto) 2.6 Baso % (Auto) 1.0 Absolute Neuts (auto) 4.8 Absolute Lymphs (auto) 3.27 Nucleated RBC % 0 Sodium 138 Potassium 3.6 Chloride 110 H Carbon Dioxide 25.0 Anion Gap 3 L BUN 14 Creatinine 0.75 Estim Creat Clear Calc 112.37 Est GFR (MDRD) Af Amer 115 Est GFR (MDRD) Non-Af 95 BUN/Creatinine Ratio 18.7 Glucose 93 Calcium 9.2 Total Bilirubin 0.40 AST 10 L ALT 19 Alkaline Phosphatase 44 L Total Protein 6.6 Albumin 3.5 Globulin 3.1 Albumin/Globulin Ratio 1.1 Lipase 43 Urine Color Yellow Urine Clarity Clear Urine pH 6.0 Ur Specific [place] 1.025 Urine Protein 30 H Urine Glucose (UA) Normal Urine Ketones 5 H Urine Occult Blood 10 H Urine Nitrite Negative Urine Bilirubin Negative Urine Urobilinogen 1 H Ur Leukocyte Esterase 25 H Urine RBC 0 SEEN Urine WBC 5-10 SEEN Ur Squamous Epith Cells 5-10 SEEN Urine Bacteria 0 SEEN Urine Mucus 0 SEEN Treatment and Re-Evaluation :: Patient was given IV fluids and Zofran. Patient was advised of her findings. Patient is feeling better on reevaluation. Patient was instructed to eat a bland diet. Patient was instructed to stop marijuana. Patient was instructed to follow-up with her primary care physician in 5 to 7 days. Patient understood and was agreeable with the plan. All questions were answered. Discharge Plan Triage Chief Complaint: Abd Pain Other Complaint: Nausea/Vomiting ED Provider: Edwardo Mason Dx/Rx/DC Orders Clinical Impression: Hematemesis of unknown etiology, Nausea and vomiting Instructions: ED Upper GI Bleeding (Stable), ED Vomiting (Adult) Prescriptions: No Action hyoscyamine sulfate 0.375 mg tablet extended release 12 hr 0.375 mg PO Q12H Qty: 60 3RF sucralfate [Carafate] 1 gram tablet 1 g PO BID Qty: 30 0RF ondansetron [ondansetron] 4 mg tablet,disintegrating 4 mg PO Q8H PRN PRN (Reason: Nausea) Qty: 10 0RF colestipol 1 gram tablet 1 g PO BID Qty: 60 0RF Rx Instructions: Take 1 gram ( 1 tablet) twice a day if you experience constipation reduce to 1g ( 1 tablet) once a day omeprazole 40 mg capsule,delayed release(DR/EC) 40 mg PO BID Qty: 60 1RF Primary Care Provider: Care Physician,No Primary Referrals: Angelica Ni [Non-Staff] - 5-7 Days Care Physician,No Primary [Primary Care Provider] - Disposition Disposition: Home, Self Care
[2023-07-25 01:04] LABS: Absolute Lymphocyte Count 3.27 X10^3/uL (0.83-4.51); Absolute Neutrophil Count 4.8 X10^3/uL (2.0-7.7); Basophil# 0.09 X10^3/uL; Eosinophil# 0.23 X10^3/uL; Eosinophils% 2.6 % (0-5); Hematocrit 36.3 % (37-47); Lymphocyte # 3.27 X10^3/ul (0.83-4.51); Lymphocyte % 36.3 % (19-41); Mean Corp Hgb Conc 33.1 g/dL (32-36); Mean Corpuscular Volume 90.8 fL (81-99); Mean Platelet Vol. 10.9 fl (6.2-12.0); Monocyte# 0.57 X10^3/uL; Monocyte% 6.3 % (0-10); NRBC Flagged by Analyzer 0 % (0-5); Neutrophil # 4.82 X10^3/uL (2.7-7.7); Neutrophil % 53.6 % (47-70); Platelet Count 283 K/mm3 (150-450); RBC Distribution Width CV 12.2 % (11.6-14.6); RBC Distribution Width SD 40.8 fl (35.1-43.9)
[2023-07-25 01:08] LABS: Bacteria 0 SEEN /hpf (None Seen); Mucous, Urine 0 SEEN /hpf (<or=2+); Red Blood Cells-Urine 0 SEEN /hpf (0-5)
[2023-07-25 01:10] LABS: Color, Urine Yellow (Yellow); Glucose, Dipstick Normal (Normal); Ketone-Dipstick 5 mg/dl (Negative); Leukocyte Esterase-Dipstick 25 /ul (Negative); Nitrite-Dipstick Negative (Negative); Occult Blood-Urine 10 /ul (Negative); Protein-Dipstick 30 mg/dl (Negative); Specific Gravity, Urine 1.025 (1.002-1.030); Urine Bilirubin Dipstick Negative (Negative); Urine Clarity Clear (Clear); Urine Urobilinogen 1 mg/dl (Normal)
[2023-07-25] MEDS: 0.9% Normal Saline (1000mL) 1,000 ML 1000 ML IV (01:12)
[2023-07-25] MEDS: Ondansetron 4 MG/2 ML Vial IV (01:13)
[2023-07-25 01:34] LABS: ALB/GLOB Ratio 1.1 RATIO (0.9-2.4); AST(SGOT) 10 U/L (15-37); Alanine Aminotransfer ALT/SGPT 19 U/L (13-56); Albumin, Serum 3.5 g/dL (3.2-5.0); Alkaline Phosphatase 44 U/L (45-117); Anion Gap 3 (5-15); BUN 14 mg/dL (7-18); BUN/Creat Ratio 18.7 RATIO (10-20); Calcium,Total 9.2 mg/dL (8.5-10.1); Chloride 110 mmol/L (98-107); Creatinine, Serum 0.75 mg/dL (0.55-1.02); EST Glomerular Filtration Rate 95 mL/min (>60); Est Glom Filt Rate - Afr Amer 115 mL/min (>60); Estimated Creatinine Clearance 112.37 ml/min; Globulin 3.1 g/dL (2.2-4.2); Glucose 93 mg/dL (74-106); Lipase 43 U/L (13-75); Potassium 3.6 mmol/L (3.5-5.1); Protein, Total 6.6 g/dL (6.4-8.2); Sodium Level 138 mmol/L (136-145)
[2023-07-25 01:42] LABS: Squamous Epithelial Cells - UA 5-10 SEEN /hpf (5-10); White Blood Cells 5-10 SEEN /hpf (0-5)
[2023-07-25 02:22] VITALS: BP 109/75; PULSE 62; RESP 18; O2SAT 96
== END 2023-07-25 02:24 | disposition home or self-care (01) ==
PROVIDERS: Emergency Provider Emergency Medicine; Visit Provider Emergency Medicine
DX: K92.0 Hematemesis (principal); F17.200 Nicotine dependence, unspecified, uncomplicated; R35.0 Frequency of micturition; R19.7 Diarrhea, unspecified; K21.9 Gastro-esophageal reflux disease without esophagitis; F12.10 Cannabis abuse, uncomplicated; E66.9 Obesity, unspecified
CPT/HCPCS: 80053; 81001; 83690; 85025; 96361; 96374; 99282; J7030; A4216; J2405

== ENCOUNTER → 2023-08-01 | Outpatient (CLI) | payer MEDICAID, SELFPAY ==
--- NOTE | 2023-08-01 08:33 | NM_ITS ---
CLINICAL: 32-year-old female with history of clinical gastroparesis. SEMI-SOLID PHASE 99m Tc SULFUR COLLOID GASTRIC EMPTYING STUDY COMPARISON: None available FINDINGS: The patient was administered 1.1 mCi of 99m Tc sulfur colloid mixed with oatmeal and consumed per os. Image acquisitions in the anterior-posterior projections were obtained for 60 minutes. There is prompt visualization of the stomach. There is no gastroesophageal reflux identified. The T ? raw data emptying was calculated to be 39.55 minutes, (Normal: 12-56 minutes). NM/Gastric Emptying Study IMPRESSION: 1. NORMAL 99m Tc sulfur colloid semi-solid phase (oatmeal) gastric emptying imaging examination. A. There is normal and preserved semi-solid phase gastric emptying compared to normal controls. ([place] et al, J Nucl Med Tech 38: 186, 2010). Electronically Signed: Lj Lobo DO at 23:14 EST ,
--- OUTSIDE RECORDS SUMMARY | 2023-08-01 08:46 | XMS RPT_ITS | CCD ---
Author Name Unknown Address [facility] [place] [address] Organization [facility] Care Team Providers Care Hi Lift Operator Name Role Phone Unavailable Primary Care Provider UnavailANGELA Ball Referring Unavailable ANGELA PEDRAZA Attending Unavailable ADRI BURKETT Referring Unavailable BURKETTADRI Referring Unavailable BURKETTADRI Referring Unavailable BURKETT, AMY Attending Unavailable Allergies Allergy Classification Reported Allergen(s) Allergy Type Date of Onset Reaction(s) Facility (5 sources) Chocolate; Translations: [CHOCOLATE] Food Allergy 02-26-2014 Other: See Comments [facility] (12 sources) Meperidine; Translations: [MEPERIDINE (PF)] Drug Allergy 10-04-2014 Other: See Comments [facility] Work Phone: Medications Current Medications Medication Drug [...] 78.93 kg Adri Burkett APRN.CNP Work Phone: [facility] 04-18-2023 16:08-0400 Diastolic blood pressure 60 mm[Hg] Adri Burkett APRN.CNP Work Phone: [facility] 04-18-2023 16:08-0400 Systolic blood pressure 100 mm[Hg] Adri Burkett PERSONNEL RESEARCH PSYCHOLOGIST.ENTER[employer] BUSINESS ARCHITECT Work Phone: [facility] 10-11-2022 [id number] Body temperature 97.39 [degF] Maggie Gee PERSONNEL RESEARCH PSYCHOLOGIST.ENTERPRISE BUSINESS ARCHITECT Work Phone: [facility] 10-11-2022 [id number] Body weight 79.83 kg Maggie Painting-Dru PERSONNEL RESEARCH PSYCHOLOGIST.ENTER[employer] BUSINESS ARCHITECT Work Phone: [facility] 10-11-2022 10:21-0400 Diastolic blood pressure 88 mm[Hg] Maggie Ortizler-Dru PERSONNEL RESEARCH PSYCHOLOGIST.ENTER[employer] BUSINESS ARCHITECT Work Phone: [facility] 10-11-2022 10:21-0400 Heart rate 108 /min Maggie Painting-Dru PERSONNEL RESEARCH PSYCHOLOGIST.ENTER[employer] BUSINESS ARCHITECT Work Phone: [facility] 10-11-2022 [id number] Respiratory rate 19 /min Maggie Painting-Dru PERSONNEL RESEARCH PSYCHOLOGIST.ENTER[employer]ISE BUSINESS ARCHITECT Work Phone: [facility] 10-11-2022 10:[id number] SaO2% (BldA) [Mass fraction] 97 % Maggie Painting-Dru PERSONNEL RESEARCH PSYCHOLOGIST.ENTER[employer]ISE BUSINESS ARCHITECT Work Phone: [facility] 10-11-2022 10:21-0400 Systolic blood pressure 120 mm[Hg] Maggie Painting-Dru PERSONNEL RESEARCH PSYCHOLOGIST.ENTER[employer]ISE BUSINESS ARCHITECT Work Phone: [facility] 07-05-2022 09:25-0500 Body weight 77.07 kg Angela Pedraza PERSONNEL RESEARCH PSYCHOLOGIST.CNM Work Phone: [facility] 07-05-2022 09:25-0500 Diastolic blood pressure 62 mm[Hg] Angela Cubats PERSONNEL RESEARCH PSYCHOLOGIST.CNM Work Phone: [facility] 07-05-2022 09:25-0500 Systolic blood pressure 102 mm[Hg] Angela Plotts PERSONNEL RESEARCH PSYCHOLOGIST.CNM Work Phone: [facility] Encounters Encounter Date Encounter Type Care Provider Facility Start: 07-03-2023 Telephone encounter Abril lopez PERSONNEL RESEARCH PSYCHOLOGIST.ENTERPR[employer] BUSINESS ARCHITECT Work Phone: [facility] Procedures Date Procedure Procedure Detail Performing Clinician Start: 05-14-2023 Us breast uni real t kwadwo with image limited Adri Burkett APRN.ENTER[employer] BUSINESS ARCHITECT Work Phone: Start: 05-14-2023 Digital breast tomosynthesis bilateral Adri Burkett APRN.ENTER[employer] BUSINESS ARCHITECT Work Phone: Start: 04-18-2023 BACTERIAL VAGINOSIS NAAT Adri Burkett PERSONNEL RESEARCH PSYCHOLOGIST.ENTER[employer] BUSINESS ARCHITECT Work Phone: Start: 04-18-2023 Iadna chlamydia trac homatis amplified probe tq Adri Burkett PERSONNEL RESEARCH PSYCHOLOGIST.ENTER[employer]ISE BUSINESS ARCHITECT Work Phone: Start: 07-06-2022 Us transvaginal Avinash Pedraza PERSONNEL RESEARCH PSYCHOLOGIST.CNM Work Phone: Start: 07-05-2022 Urnls dip stick/tabl et rgnt auto w/o microscopy Angela Pedraza PERSONNEL RESEARCH PSYCHOLOGIST.CNIssa Work Phone: Plan of Treatment Date Care Activity Detail Author Start: 10-27-2025 HPV TESTING HPV TESTING [facility] Start: 10-27-2025 PAP TESTING PAP TESTING [facility] Start: 10-27-2025 Screening for malign ant neoplasm of cervix [facility] Start: 06-24-2023 Depression Assessment Depression Ass essment [facility] Start: 04-18-2023 End: 04-18-2024 PELVIC US WHI PELVIC US WHI Anc Imaging Routine Pelvic pain in female Enlarged uterus Expected: 04/18/2023, Expires: 04/18/2024 [facility] Work Phone: Immunizations Immunization Date Immunization Notes Care Provider Fa samantha 03-19-2018 influenza virus vacc ine, unspecified formulation Amy Hein PERSONNEL RESEARCH PSYCHOLOGIST.ENTERPRISE BUSINESS ARCHITECT Work Phone: [facility] Payers Date Payer Category Payer Medicaid [id number] 2019 Medicaid [id number] 2019 Medicaid [id number] Social History Date Type Detail Facility Start: 02-14-2022 Tobacco smoking stat us NHIS Ex-smoker [facility] Work Phone: End: 06-23-2021 History of tobacco use Current smoker [facility] Work Phone: End: 06-23-2021 History of tobacco use Cigarette Smoker [facility] Work Phone: Start: 02-14-2022 End: 04-18-2023 Cigarettes smoked current (pack per day) - Reported 1 [facility] Start: 02-14-2022 Tobacco use and exposure Smokeless tobacco non-user [facility] Work Phone: History of tobacco use [facility] Work Phone: Start: 02-14-2022 End: 04-19-2023 Alcohol intake Current drinker of alcohol (finding) [facility] Start: 02-14-2022 Tobacco Comment down to 1/2 pa ck per day [facility] Start: 1990 Sex Assigned At Not on file C [facility] Start: 10-11-2022 End: 04-18-2023 Tobacco use panel [facility] National Score (1-10 0), lower number is lower risk 48 [facility] Clinical Notes 02-15-2022 to 07-03-2023 Telephone Encounter [...] Abril Carpenter APRN.CNP documented in this encounter [facility] 07-01-2023 Note HNO ID: [id number] Author: DEBBIE CERRATO RDMS Service: ? Author Type: [employer] Director Type: Progress Notes Filed: 07/01/2023 15:47 Note [...] Cerrato RDMS July 01, 2023 3:46 PM [facility] 05-14-2023 Note HNO ID: [id number] Author: Debbie Cerrato RDMS Service: ? Author Type: [employer] Director Type: Progress Notes Filed: 05/14/2023 2:12 PM [...] Cerrato RDMS May 14, 2023 2:12 PM [facility] 05-14-2023 Note HNO ID: [id number] Author: Ciarra Dior Mammo Tech Service: ? Author Type: [employer] Director Type: Progress Notes Filed: 05/14/2023 2:01 PM [...] DATA: Not applicable SIGNED BY: Ciarra Dior [employer] May 14, 2023 2:00 PM [facility] 05-14-2023 History of Presen t illness [...] 2023 2:12 PM documented in this encounter [facility] 05-14-2023 History of Presen t illness [...] 2023 2:00 PM documented in this encounter [facility] 04-18-2023 Note HNO ID: [id number] Author: Adri Burkett APRN.ENTERPRISE BUSINESS ARCHITECT Service: ? Author Type: Nurse Practitioner Type: Progress Notes Filed: 04/20/2023 3:03 PM Note Text: Case Briefer offered: Patient declines. Patience Gudino is a 32 year old female who presents for problem visit ED follow-up for abdominal pain HPI: Patience was evaluated in [facility] ED 04/17 and 04/18 for generalized abdominal [...] Multiple0 Live Births0 Comment: 2 vaginal deliveries Manager Environmental Affairs History LMP: 04/04/2023 (Within Days), Having periods Age at Menarche: Age at First : Age at Menopause: Manager Environmental Affairs History Comments: Sexual Activity: Not Asked; Male [...] external genitalia normal, normal Bartholin's glands, urethra, Nuangola's glands, no vulvar lesions, no cervical lesions, [...] Z11.3 - IKER/TRICHO (more content not included)... [facility] 04-18-2023 History of Presen t illness Narrative Case Briefer offered: Patient declines. Patience Gudino is a 32 year old female who presents for problem visit ED follow-up for abdominal pain HPI: Patience was evaluated in [facility] ED 04/17 and 04/18 for generalized abdominal [...] Multiple0 Live Births0 Comment: 2 vaginal deliveries Manager Environmental Affairs History LMP: 04/04/2023 (Within Days), Having periods Age at Menarche: Age at First : Age at Menopause: Manager Environmental Affairs History Comments: Sexual Activity: Not Asked; Male [...] external genitalia normal, normal Bartholin's glands, urethra, Nuangola's glands, no vulvar lesions, no cervical lesions, [...] encounter [facility] 04-17-2023 Note HNO ID: [id number] Author: Amy Hein APRN.ENTERPRISE BUSINESS ARCHITECT Service: ? Author Type: Nurse Practitioner Type: [...] there and follow-up. Patient was extremely tearful. [facility] 04-17-2023 History of Presen t illness [...] was extremely tearful. documented in this encounter [facility] 10-11-2022 Note HNO ID: [id number] Author: Maggie Gee APRN.ENTERPRISE BUSINESS ARCHITECT Service: ? Author Type: Nurse Practitioner Type: [...] Discussed expected course of illness Maggie Gee APRN.[facility] 10-11-2022 History of Presen t illness [...] Maggie Gee APRN.CNP documented in this encounter [facility] 10-11-2022 Instructions Maggie Gee APRN.CNP - 10/11/2022 [...] drainage or pus). documented in this encounter [facility] 07-10-2022 Miscellaneous Notes Formattin g of this [...] Angela Pedraza APRN.CNM documented in this encounter [facility] 07-06-2022 Note HNO ID: [id number] Author: RT Evonne(R) Service: Radiology Author Type: [...] Bajwa Rdms July 06, 2022 8:09 AM [facility] 07-06-2022 History of Presen t illness [...] 2022 8:09 AM documented in this encounter [facility] 07-05-2022 Note HNO ID: [id number] Author: Angela Pedraza APRN.CNM Service: ? Author Type: Flame Hardening Machine Setter Type: Progress Notes Filed: 07/05/2022 3:59 PM [...] due to frequency of infections [facility] History of Presen t illness Narrative [...] Angela Pedraza APRN.CNM documented in this encounter [facility] 02-16-2022 Miscellaneous Notes Formattin g of this note might be different from the original. Attempted to call patient. [employer] message sent. Ashanti Multani RN +UTI, I will send in some Cipro for her. She may also want to start a Monistat 7-day treatment to prevent a yeast infection due to being on 2 antibiotics. Abril Carpenter APRN.CNP Patient calling because she saw urine culture results on [employer]. Please review in CP's absence. Ashanti Multani RN documented in this encounter [facility] 02-15-2022 Miscellaneous Notes Formattin g of this note is different from the original. Patient notified of results, verbalizes understanding of instructions. The following approved medications have been transmitted electronically. Requested Prescriptions Signed Prescriptions Disp Refills metroNIDAZOLE (FLAGYL) 500 mg tablet 14 tablet 0 Sig: Take 1 tablet by mouth twice daily for 7 days. Authorizing Provider: ABRIL CARPENTER Pharmacy Information Pharmacy Address [facility] [phone] [place] [address] Vanessa Giraldo RN Left message to call office. Vanessa Giraldo RN BV positive. To treat with Flagyl 500mg PO BID for 7 days. 1) No alcohol during treatment and for 24 hours after last dose. 2) No intercourse during treatment. 3) Probiotic by mouth once daily for 30 days or as needed. Abril Carpenter APRN.CNP documented in this encounter [facility] Diagnosis Rash- Primary Rash and other nonspecific skin eruption [facility] Diagnosis Chest pain, unspecified type- Primary [facility] Diagnosis Pelvic pain in female- Primary Unspecified symptom associated with female genital organs Acute vaginitis Vaginitis and vulvovaginitis, unspecified Enlarged uterus Hypertrophy of uterus Mass of axillary tail of left breast Screen for STD (sexually transmitted disease) Screening examination for venereal disease Axillary hidradenitis suppurativa Hidradenitis [facility] Diagnosis Pelvic pain in female Unspecified symptom associated with female genital organs documented in this encounter [facility] note* Diagnosis Mass of axillary tail of left breast documented in this encounter [facility] note* Diagnosis Mass of axillary tail of left breast documented in this encounter [facility] note* Diagnosis Ovarian cyst, left- Primary Other and unspecified ovarian cyst documented in this encounter [facility] for referral (narrative)* Diagnostic Procedure Only (Routine) - Authorized Specialty Diagnoses / Procedures Referred By Kristan gardner Referred To Contact US IMAGING Diagnoses Pelvic pain in female Procedures US FEMALE PELVIS TRANSVAG US TRANSVAGINAL Angela Pedraza APRN.CNM [address] [place] [address] Us Imaging Referral ID Status Reason Start Date Expiration Date Visits Requested Visits Authorized [id number] Authorized Auto-Generat ed Referral 07/05/2022 08/04/2023 1 [facility] Diagnostic Procedure Only (Routine) - Closed Specialty Diagnoses / Procedures Referred By Kristan t Referred To Contact US IMAGING Diagnoses Pelvic pain in female Procedures US FEMALE PELVIS TRANSVAG US TRANSVAGINAL Angela Pedraza APRN.CNM [address] [place] [address] [place] [address] Referral ID Status Reason Start Date Expiration Date V isits Requested Visits Authorized [id number] Closed Auto-Generate d Referral 07/05/2022 08/04/2023 1 1 [facility] for referral (narrative)* Diagnostic Procedure Only (Routine) - Closed Specialty Diagnoses / Procedures Referred By Contac t Referred To Contact [facility] IMAGING Diagnoses Mass of axillary tail of left breast Procedures US BREAST LTD LEFT US BREAST UNI REAL TIME WITH IMAGE LIMITED Adri Burkett APRN.ENTER[employer] BUSINESS ARCHITECT [address] [place] [address] [facility] [address] [place] [address] Referral ID Status Reason Start Date Expiration Date V isits Requested Visits Authorized [id number] Closed Auto-Generate d Referral 04/18/2023 05/17/2024 1 1 [facility] for referral (narrative)* Diagnostic Procedure Only (Routine) - Pending Review Specialty Diagnoses / Procedures Referred By Contac t Referred To Contact US IMAGING Diagnoses Ovarian cyst, left Procedures US FEMALE PELVIS TRANSVAG US TRANSVAGINAL Abril Carpenter APRN.ENTER[employer] BUSINESS ARCHITECT [address] [place] [address] [place] [address] Referral ID Status Reason Start Date Expiration Date Visits Requested Visits Authorized [id number] Pending Review Auto-Generat ed Referral 07/03/2023 08/01/2024 1 1 [facility] for visit Narrative* Diagnostic Procedure Only (Routine) - Closed Specialty Diagnoses / Procedures Referred By Contac t Referred To Contact US IMAGING Diagnoses Pelvic pain in female Procedures US FEMALE PELVIS TRANSVAG US TRANSVAGINAL Angela Pedraza APRN.CNM [address] [place] [address] [place] [address] Referral ID Status Reason Start Date Expiration Date V isits Requested Visits Authorized [id number] Closed Auto-Generate d Referral 07/05/2022 08/04/2023 1 1 [facility] Diagnostic Procedure Only (Routine) - Closed Specialty Diagnoses / Procedures Referred By Contac t Referred To Contact BR IMAGING Diagnoses Mass of axillary tail of left breast Procedures HERBER DIAGNOSTIC BILATERAL DIAGNOSTIC MAMMOGRAPHY COMPUTER-AIDED DETCJ BI Adri Burkett APRN.ENTER[employer] BUSINESS ARCHITECT [address] [place] [address] [facility] [address] [place] [address] Referral ID Status Reason Start Date Expiration Date V isits Requested Visits Authorized [id number] Closed Auto-Generate d Referral 04/18/2023 05/17/2024 1 1 [facility] Reason for Referral Specialty Diagnoses / Procedures Referred By Contac t Referred To Contact Allergy Diagnoses Rash Procedures CONSULT TO ALLERGY/IMMUNOLOGY OFFICE/OUTPATIENT [facility] 60-74 MINUTES Maggie Gee, SARA.ENTER[employer]ISE BUSINESS ARCHITECT [address] [place] [address] Referral ID Status Reason Start Date Expiration Date Visits Requested Visits Authorized [id number] Authorized PCP Requested Referral 10/11/2022 10/11/2023 1 1 Specialty Diagnoses / Procedures Referred By Contac t Referred To Contact Dermatology Diagnoses Mass of axillary tail of left breast Axillary hidradenitis suppurativa Procedures CONSULT TO DERMATOLOGY Adri Burkett APRN.ENTER[employer] BUSINESS ARCHITECT [address] [place] [address] Referral ID Status Reason Start Date Expiration Date Visits Requested Visits Authorized [id number] Ref Not Required PCP Requested Referral 04/19/2024 1 1 Specialty Diagnoses / Procedures Referred By Contac t [facility] Diagn[facility] Pelvic pain in female Enlarged uterus Procedures PELVIC US WHI US PELVIC NONOBSTETRIC REAL-TIME IMAGE COMPLETE Adri Burkett, SARA.[employer] BUSINESS ARCHITECT [address] [place] [address] [facility] [address] [place] [address] Referral ID Status Reason Start Date Expiration Date Visits Requested Visits Authorized [id number] Pending Review Auto-Generat ed Referral 3 04/17/2024 1 1 Specialty Diagnoses / Procedures Referred By Contac t Referred To Contact US IMAGING Diagnoses Pelvic pain in female Enlarged uterus Procedures US FEMALE PELVIS TRANSVAG US TRANSVAGINAL Adri Burkett APRN.ENTER[employer] BUSINESS ARCHITECT [address] [place] [address] [place] [address] Referral ID Status Reason Start Date Expiration Date Visits Requested Visits Authorized [id number] Authorized Auto-Generat ed Referral 3 05/17/2024 1 1 Specialty Diagnoses / Procedures [facility] To [facility] Diagnoses Mass of axillary tail of left breast Procedures HERBER DIAGNOSTIC BILATERAL DIAGNOSTIC MAMMOGRAPHY COMPUTER-AIDED DETCJ BI Adri Burkett APRN.[employer] BUSINESS ARCHITECT [address] [place] [address] [facility] [address] [place] [address] Referral ID Status Reason Start Date Expiration Date Visits Requested Visits Authorized [id number] Authorized Auto-Generat ed Referral 3 05/17/2024 1 1 Specialty Diagnoses / Procedures [facility] Referred To Contact [facility] Diagnoses Mass of axillary tail of left breast Procedures US BREAST LTD LEFT US BREAST UNI REAL TIME WITH IMAGE LIMITED Adri Burkett APRN.[employer] BUSINESS ARCHITECT [address] [place] [address] [facility] [address] [place] [address] Referral ID Status Reason Start Date Expiration Date Visits Requested Visits Authorized [id number] Authorized Auto-Generat ed Referral 3 05/17/2024 1 [...] or prosecute any alcohol or drug abuse patient.[facility] the event this information is protected by the Federal Confidentiality of Alcohol and Drug Abuse Patient Records regulations: The Federal rules restrict any use of the information to criminally investigate or prosecute any alcohol or drug abuse patient.[facility] the event this information is protected by the Federal Confidentiality of Alcohol and Drug Abuse Patient Records regulations: The Federal rules restrict any use of the information to criminally investigate or prosecute any alcohol or drug abuse patient.[facility] the event this information is protected by the Federal Confidentiality of Alcohol and Drug Abuse Patient Records regulations: The Federal rules restrict any use of the information to criminally investigate or prosecute any alcohol or drug abuse patient.[facility] the event this information is protected by the Federal Confidentiality of Alcohol and Drug Abuse Patient Records regulations: The Federal rules restrict any use of the information to criminally investigate or prosecute any alcohol or drug abuse patient.[facility] the event this information is protected by the Federal Confidentiality of Alcohol and Drug Abuse Patient Records regulations: The Federal rules restrict any use of the information to criminally investigate or prosecute any alcohol or drug abuse patient.[facility] the event this information is protected by the Federal Confidentiality of Alcohol and Drug Abuse Patient Records regulations: The Federal rules restrict any use of the information to criminally investigate or prosecute any alcohol or drug abuse patient.[facility] the event this information is protected by the Federal Confidentiality of Alcohol and Drug Abuse Patient Records regulations: The Federal rules restrict any use of the information to criminally investigate or prosecute any alcohol or drug abuse patient.[facility] the event this information is protected by the Federal Confidentiality of Alcohol and Drug Abuse Patient Records regulations: The Federal rules restrict any use of the information to criminally investigate or prosecute any alcohol or drug abuse patient.[facility] Hospital[facility] the event this information is protected by the Federal Confidentiality of Alcohol and Drug Abuse Patient Records regulations: The Federal rules restrict any use of the information to criminally investigate or prosecute any alcohol or drug abuse patient.[facility] the event this information is protected by the Federal Confidentiality of Alcohol and Drug Abuse Patient Records regulations: The Federal rules restrict any use of the information to criminally investigate or prosecute any alcohol or drug abuse patient.[facility] Reason for Visit (unrecogniz ed section and [...] REAL TIME WITH IMAGE LIMITED Adri Burkett, PERSONNEL RESEARCH PSYCHOLOGIST.[employer] BUSINESS ARCHITECT [address] [place] [address] [facility] [address] [place] [address] Referral ID Status Reason Start Date Expiration Date V isits Requested Visits Authorized [id number] Closed Auto-Generate d Referral 04/18/2023 05/17/2024 1 [...] BE BASED ON THE PRIMARY CLINICAL RECORDS. [facility]. provides no warranty or guarantee of the accuracy or completeness of information in this document.
== END | disposition home or self-care (01) ==
LOC: NM 08:33
PROVIDERS: Referring Provider Internal Medicine Gastroenterology; Visit Provider Internal Medicine Gastroenterology
DX: K29.60 Other gastritis without bleeding (principal); F12.188 Cannabis abuse with other cannabis-induced disorder
CPT/HCPCS: 78264; A9541

== ENCOUNTER 2023-10-26 05:52 | Emergency (ER) | payer MEDICAID, SELFPAY ==
[2023-10-26 05:54] VITALS: BP 118/55; PULSE 73; RESP 18; TEMP 36.8; O2SAT 97; BMI 31.2
--- NOTE | 2023-10-26 05:58 | EDS_ITS ---
HPI History of Present Illness Chief Complaint: Abd Pain [facility] Medical History Alcohol use Anxiety Easy bruising Excessive bleeding Gastric reflux GERD (gastroesophageal reflux disease) History of pain when walking History of ulceration Migraine headache Smoker Stomach ulcer Home Medications omeprazole 40 mg capsule,delayed release 40 mg PO BID #60 caps 06/10/23 [Rx Last Taken Unknown] dextroamphetamine-amphetamine ER 20 mg 24hr capsule,extend release 1 cap PO DAILY 10/26/23 [History Last Taken Unknown] ondansetron 4 mg disintegrating tablet 4 mg PO Q8H PRN PRN Nausea #10 tabs 10/26/23 [Rx Last Taken Unknown] Allergy/AdvReac Type Severity Reaction Status Date / Time latex Allergy Rash Verified 10/26/23 05:57 meperidine HCl [From Demerol] Allergy Low blood Verified 10/26/23 05:57 pressure Surgical History History of tubal ligation S/P cholecystectomy Social History (Updated 07/25/23 @ 00:[address] Edwardo Mason DO) household members: children Smoking Status: Current every day smoker tobacco type: cigarettes alcohol intake: current alcohol intake frequency: a few times a week Alcohol type: beer substance use type: marijuana EXAM Physical Exam Const Vital Signs: 10/26/23 05:54 10/26/23 05:52 Temperature 98.3 F Temperature Source Oral Pulse Rate 73 Respiratory Rate 18 Blood Pressure 118/55 L Blood Pressure Mean 76 Pulse Ox 97 Oxygen Delivery Method Room Air Room Air MDM MDM MDM Narrative Medical decision making narrative: HISTORY OF PRESENT ILLNESS: 33year old female presents with abdominal pain. Notes diarrhea and abdominal pain. Notes 1 year of symptoms following with multiple GI doctors no clear precipitating cause. Notes acute on chronic abdominal pain. Pain is diffuse. Is nonradiating. Not associated with urinary complaints. She notes she has foul-smelling yellow appearing diarrhea every time she eats. Notes history of cholecystectomy and tubal ligation. Denies chest pain or shortness of breath to me at this time. No fevers. No recent travel, surgery, antibiotics or hospitalization. REVIEW OF SYSTEMS: All other systems reviewed and are negative except as noted in the history of present illness. At least 10 review of systems reviewed and are negative except as noted in history of present illness. PHYSICAL EXAM: Nursing triage notes reviewed, Vital signs reviewed Constitutional: please see mdm HENT: MMM Eyes: Pupils equal round and reactive to light, Extraocular muscles intact Neck: No stridor, no JVD, full neck ROM Lungs: Clear to auscultation, No wheezing or rales. No increased work of breathing, no conversational dyspnea, no accessory muscle use, no nasal flaring. No respiratory distress noted Heart: Regular rate and rhythm, No murmurs, No rubs and No gallops, 2+ distal pulses (radial, femoral, posterior tibial) in all extremities Abdomen: Soft, no rigidity, rebound or guarding, no obvious peritoneal signs, no palpable pulsatile abdominal masses, no auscultated abdominal bruit : No CVAT Extremities: No edema Neuro: No focal neurological deficits, cranial nerves II through XII intact, 5/5 strength in all extremities. Intact sensation to light touch in all extremities, 2+ reflexes bilateral patella tendons. Normal gait. No ataxia. Skin: No rash or lesions noted MEDICAL DECISION MAKING: Chief Complaint: abdominal pain External records reviewed: Prior imaging studies reviewed: CT scan of chest abdomen pelvis from March 2023 shows no acute intra-abdominal pathology. Gastric emptying study from 09/2023 shows no evidence of decreased GI through Factors affecting care: Diarrhea, pancreatitis, cannabis hyperemesis syndrome Social determinants of health: History of THC use History obtained from others: none Consults: none [facility] Narrative: The patient was hemodynamically stable, afebrile and nontoxic-appearing. Abdominal exam benign. There is no peritoneal signs. No pulsatile masses. I considered the following differential diagnosis: AAA, small bowel obstruction, abdominal perforation, appendicitis, pancreatitis, hepatobiliary pathology (acute cholecystitis), mesenteric ischemia, abnormalities such as pyelonephritis, nephrolithiasis. I obtained a broad lab workup to further elucidate the etiology. Complaint specifically rule out life-limiting pathology. I treated the patient 1 L normal saline and gave Toradol for pain ALL IMAGES (IF OBTAINED) HAVE BEEN PERSONALLY REVIEWED AND INTERPRETED BY MYSELF. CBC without leukocytosis, severe anemia, no thrombocytopenia. LFTs show no evidence of hepatobiliary pathology. Lipase is wnl indicating no pancreatic inflammation. BMP without evidence of significant electrolyte abnormalities, no anion gap, no acute kidney injury. Consider obtaining urine test over the patient to the location which makes this test unnecessary Considered obtaining urinalysis however patient did not endorse urinary symptoms I consider obtaining advanced imaging the abdomen pelvis with the patient had a benign abdominal exam there is medication for advanced imaging at this time. The etiology of patient's complaints uncertain at this time however based on her labs, physical exam, labs images there is no indication of this is life or limb threatening. Specifically notification for general surgery consult or admission at this time. Will treat the patient medically from home with Zofran for nausea, instructions to take copious p.o. fluid and follow-up with her GI doctor as an outpatient. I see nothing that would suggest an acute abdomen at this time. Based on history physical exam, risk factors, my suspicion for bowel obstruction, incarcerated hernia, perforated viscus, acute cholecystitis, appendicitis is very low. There is no evidence of peritonitis sepsis or toxicity at this time. I feel the patient can be managed as an outpatient with follow-up with her/his primary physician in the next 24 to 48 hours or soon as possible. Instructions have been given for the patient to return to the ED for worsening pain, anorexia, high fevers, intractable vomiting or bleeding. The patient and/or family, caregivers express understanding. The patient and/or family, caregivers agrees with the plan. Total critical care time today provided was at least 0 minutes. This excludes separately billable procedures. Critical care time (if documented) is secondary to the patient having high probability of clinically significant/life threatening deterioration in the patient's condition which required my urgent intervention. Shared decision making: I will have a discussion with the patient and or visitors regarding risk/benefits of further testing or admission. They will be made aware of of the risk/benefits inherent in this decision they will be given the opportunity to voice understanding. Impression: 1. Diarrhea 2. Dehydration 3. Acute on chronic abdominal pain Disposition: Discharge home Lucian Perez DO This note was generated with [employer] dictation software. It may contain incorrect words, spelling, and punctuation that were not noted in review of the chart prior to signing. Lab Data Labs: Laboratory Results - last 24 hr 10/26/23 06:02 WBC 8.1 RBC 4.76 Hgb 14.3 Hct 44.6 MCV 93.7 MCH 30.0 MCHC 32.1 RDW Std Deviation 44.4 H RDW Coeff of Cathleen 12.9 Plt Count 270 MPV 10.5 Immature Gran % (Auto) 0.200 Neut % (Auto) 61.0 Lymph % (Auto) 28.9 [place] % (Auto) 6.1 Eos % (Auto) 2.9 Baso % (Auto) 0.9 Absolute Neuts (auto) 5.0 Absolute Lymphs (auto) 2.35 Nucleated RBC % 0 Total Bilirubin 0.40 Direct Bilirubin 0.12 AST 16 ALT 27 Alkaline Phosphatase 40 L Total Protein 7.4 Albumin 4.1 Globulin 3.3 Lipase 26 Discharge Plan Triage Chief Complaint: Abd Pain ED Provider: Lucian Perez Dx/Rx/DC Orders Clinical Impression: Diarrhea, Abdominal pain Instructions: Abdominal Pain, Treating Diarrhea Prescriptions: New ondansetron 4 mg tablet,disintegrating 4 mg PO Q8H PRN PRN (Reason: Nausea) Qty: 10 0RF No Action dextroamphetamine-amphetamine 20 mg capsule,extended release 24hr 1 cap PO DAILY omeprazole 40 mg capsule,delayed release(DR/EC) 40 mg PO BID Qty: 60 1RF Primary Care Provider: ARCHANA BRIGGS Referrals: Care Physician,No Primary [Non-Staff] - Activity Restrictions/Additional Instructions: Thank you for trusting us with your care today! The cause of your symptoms remains unclear however your labs, exam and vital signs are reassuring. Please drink electrolyte containing solutions including body armor, Pedialyte and Gatorade to replace losses from diarrhea. If you are able to provide a stool sample in the emergency department please follow along with your electronic medical record for results. Please take Tylenol (2 pills, 650 mg), ibuprofen (2 pills, 400 mg) every 6 hours as needed for pain and fever control. Please take Zofran as needed for nausea and vomiting. Please return to the emergency department if your symptoms change or worsen. Specifically develop fever, worsening pain, vomiting you cannot tolerate your medicine or food by mouth Please follow with your primary care physician for further outpatient evaluation and management. Disposition Disposition: Home, Self Care
[2023-10-26] MEDS: 0.9% Normal Saline (1000mL) 1,000 ML 999 ML IV (06:07)
[2023-10-26] MEDS: Ketorolac 15 MG/ML Vial IV (06:07)
[2023-10-26 06:09] LABS: Absolute Lymphocyte Count 2.35 X10^3/uL (0.83-4.51); Basophil# 0.07 X10^3/uL; Basophil% 0.9 % (0-1); Eosinophil# 0.24 X10^3/uL; Eosinophils% 2.9 % (0-5); Hematocrit 44.6 % (37-47); Hemoglobin 14.3 g/dL (12.0-15.0); Lymphocyte # 2.35 X10^3/ul (0.83-4.51); Lymphocyte % 28.9 % (19-41); Mean Corp Hgb Conc 32.1 g/dL (32-36); Mean Corpuscular Volume 93.7 fL (81-99); Mean Platelet Vol. 10.5 fl (6.2-12.0); Monocyte% 6.1 % (0-10); NRBC Flagged by Analyzer 0 % (0-5); Neutrophil # 4.96 X10^3/uL (2.7-7.7); Platelet Count 270 K/mm3 (150-450); RBC Distribution Width CV 12.9 % (11.6-14.6); RBC Distribution Width SD 44.4 fl (35.1-43.9); Red Blood Count 4.76 M/mm3 (4.2-5.4); White Blood Count 8.1 K/mm3 (4.4-11.0)
[2023-10-26 06:26] LABS: AST(SGOT) 16 U/L (15-37); Alanine Aminotransfer ALT/SGPT 27 U/L (13-56); Albumin, Serum 4.1 g/dL (3.2-5.0); Alkaline Phosphatase 40 U/L (45-117); Bilirubin, Direct 0.12 mg/dL (0.00-0.30); Globulin 3.3 g/dL (2.2-4.2); Lipase 26 U/L (13-75); Protein, Total 7.4 g/dL (6.4-8.2)
[2023-10-26 06:54] LABS: Anion Gap 2 (5-15); BUN 10 mg/dL (7-18); BUN/Creat Ratio 12.4 RATIO (10-20); Calcium,Total 8.1 mg/dL (8.5-10.1); Chloride 111 mmol/L (98-107); EST Glomerular Filtration Rate 87 mL/min (>60); Est Glom Filt Rate - Afr Amer 106 mL/min (>60); Estimated Creatinine Clearance 103.93 ml/min; Glucose 83 mg/dL (74-106); Potassium 3.5 mmol/L (3.5-5.1); Sodium Level 139 mmol/L (136-145)
== END 2023-10-26 07:20 | disposition home or self-care (01) ==
PROVIDERS: Emergency Provider Emergency Medicine; PCP Nurse Practitioner Family; Visit Provider Emergency Medicine
DX: R10.9 Unspecified abdominal pain (principal); E86.0 Dehydration; R11.0 Nausea; R19.7 Diarrhea, unspecified; G89.29 Other chronic pain; K21.9 Gastro-esophageal reflux disease without esophagitis; Z79.899 Other long term (current) drug therapy; Z98.51 Tubal ligation status; Z90.49 Acquired absence of other specified parts of digestive tract; F17.210 Nicotine dependence, cigarettes, uncomplicated
CPT/HCPCS: 80048; 80076; 83690; 85025; J2405

== ENCOUNTER 2023-10-26 13:57 | Emergency (ER) | payer MEDICAID, SELFPAY ==
[2023-10-26 13:58] VITALS: BP 104/65; PULSE 96; RESP 22; TEMP 35.9; O2SAT 100; BMI 30.5
--- NOTE | 2023-10-26 15:07 | CT_ITS ---
STUDY: CT ABDOMEN AND PELVIS WITH CONTRAST REASON FOR EXAM: Female, 33 years old. Diarrhea RADIATION DOSAGE (If Supplied By Facility): CTDIvol = ( 13.46 ) mGy, DLP = ( 860.93 ) mGycm TECHNIQUE: Transaxial images were obtained from the dome of the diaphragm to the symphysis pubis without oral contrast. IV 100mL Isovue-370 was administered. Sagittal and coronal images were reconstructed. Individualized dose optimization techniques were used for this CT. COMPARISON: None. FINDINGS: The visualized lung bases are unremarkable. The visualized portions of the heart are within normal limits. Normal liver. There is non-visualization of the gallbladder, which may be secondary to either contraction or a prior cholecystectomy. Normal spleen. Normal pancreas. Normal bilateral adrenal glands. Normal right kidney. Normal left kidney. Normal visualized stomach. Normal small intestine. Normal colon. The appendix is visualized and appears normal. Normal abdominal aorta. Normal inferior vena cava. Normal retroperitoneum. Normal urinary bladder. There is a small umbilical hernia containing fat. Normal osseous structures. CT/Abdomen/Pelvis W IV Cont ONLY IMPRESSION: Normal enhanced CT of the abdomen and pelvis. Electronically Signed: Lj Cavazos MD at 17:32 EDT ,
--- NOTE | 2023-10-26 15:09 | ED.VIS.GI ---
HPI HPI - GI History of Present Illness Chief Complaint: Abd Pain Narrative Narrative: 33-year-old female past medical history gastric ulcers presents with diarrhea that she has had over the last few days. She presents with her and relates history that a few months ago she was having diarrhea and abdominal pain. She states she was diagnosed with Escherichia coli at [facility] and had to go through a few rounds of antibiotics. Her symptoms resolved until a few days ago when she started having abdominal bloating, and diarrhea that is yellow in nature and foul-smelling. She denies any fevers but states she has chills. Occasionally she will have nausea and vomiting, but has not vomited within the last 24 hours. She was seen in the emergency department here earlier this morning where laboratory work was performed and she was discharged. Since then she states that her arms feel heavy and she feels weak and more bloated and there is burning pain in her epigastrium. She has had 3 episodes of diarrhea since then. She states that whenever she eats she has to have a bowel movement. She started her menses today. [facility] Medical History Alcohol use Anxiety Easy bruising Excessive bleeding Gastric reflux GERD (gastroesophageal reflux disease) History of pain when walking History of ulceration Migraine headache Smoker Stomach ulcer Home Medications omeprazole 40 mg capsule,delayed release 40 mg PO BID #60 caps 06/10/23 [Rx Last Taken Unknown] dextroamphetamine-amphetamine ER 20 mg 24hr capsule,extend release 1 cap PO DAILY 10/26/23 [History Last Taken Unknown] ondansetron 4 mg disintegrating tablet 4 mg PO Q8H PRN PRN Nausea #10 tabs 10/26/23 [Rx Last Taken Unknown] Allergy/AdvReac Type Severity Reaction Status Date / Time latex Allergy Rash Verified 10/26/23 13:58 meperidine HCl [From Demerol] Allergy Low blood Verified 10/26/23 13:58 pressure Surgical History History of tubal ligation S/P cholecystectomy Social History (Updated 07/25/23 @ 00:[address] Edwardo Mason, DO) household members: children Smoking Status: Current every day smoker tobacco type: cigarettes alcohol intake: current alcohol intake frequency: a few times a week Alcohol type: beer substance use type: marijuana ROS ROS ED ROS Narrative Constitutional: No fever, positive chills. HEENT: No sore throat. No neck pain. No loss of vision. No rhinorrhea. Cardiovascular: No chest pain. No palpitations. No pedal edema. Respiratory: No cough, no shortness of breath. Abdominal: Positive epigastric burning, diffuse abdominal pain. Positive bloating. Occasional nausea and vomiting. Positive yellow, foul-smelling liquid stool. Genitourinary: No dysuria. No hematuria. Musculoskeletal: No myalgias. No arthralgias. Neurologic: No headaches. No dizziness. No lightheadedness. Skin: No rash. No change in color. Psychiatric: No depression. No anxiety. EXAM Physical Exam Narrative Exam Narrative: Afebrile. Vital signs noted. HEENT: Normocephalic. Atraumatic. PERRL, EOMI. Neck soft and supple. No point tenderness or step off. Cardiovascular: Regular rate and rhythm. No murmurs, rubs, or gallops appreciated. Respiratory: No tachypnea. Lungs clear to auscultation bilaterally. Gastrointestinal: Abdomen soft, mild diffuse tenderness, with normoactive bowel sounds. No rebound or guarding. Neurological: Awake. Alert. Nonfocal, nonlateralizing. Skin: No rash. Normal color. No pallor. Musculoskeletal: No pedal edema. Full range of motion extremities. Const Vital Signs: 10/26/23 13:58 10/26/23 15:57 10/26/23 17:00 Temperature 96.7 F L Temperature Source Temporal Pulse Rate 96 90 78 Respiratory Rate 22 H 16 16 Blood Pressure 104/65 119/65 109/65 Blood Pressure Mean 78 83 79 Pulse Ox 100 98 98 Oxygen Delivery Method Room Air Room Air Room Air MDM MDM MDM Narrative Medical decision making narrative: I reviewed the patient's prior records, and provider note from earlier today. She had laboratory work and a lipase that was normal. There were no signs of dehydration. Imaging was not performed. In the differential diagnosis is C. difficile colitis given her 3-4 rounds of antibiotics over the last few months. She may have a diverticulitis and in review of her problem list she has had pancreatitis in the past which is also in the differential diagnosis. Given her epigastric burning, she may be having problems with gastric ulcer. Should she produce a stool sample, will be sent for studies. I will repeat her laboratory work including her lipase and add of serum hCG as well. She was bolused normal saline and given a GI cocktail orally. However, I was informed by the RN that she had refused GI cocktail. I thought this would be helpful with her history of reported GERD and gastritis with gastric ulcers. I reviewed her laboratory work and she does have a leukocytosis of 14.1 which I think is nonspecific when compared to her previous laboratory from earlier. Hemoglobin normal at 13.4, platelet count normal at 251. Lipase is normal at 19. CMP is remarkable for chloride of 112. Serum is negative. I reviewed the radiology report of the CT of the abdomen pelvis which shows no acute process. Patient has been unable to give a stool sample for the stool studies. In discussion with the patient regarding her negative results, she feels her abdomen is still bloated. She was requesting something to make her have a bowel movement in the ED, and according to the RN she had refused the morphine and ondansetron that was ordered for her. At this point in time, given her negative workup I feel she can be discharged to follow-up with gastroenterology. Disposition is discharged in stable condition. History & Record Review Discussion w/independent historian: Patient Additional record(s) reviewed:: Prior ED visit and Prior labs Lab Data Attestation: I reviewed the patient's lab results. Labs: Laboratory Results - last 24 hr 10/26/23 15:30 WBC 14.1 H RBC 4.28 Hgb 13.4 Hct 39.8 MCV 93.0 MCH 31.3 MCHC 33.7 RDW Std Deviation 43.5 RDW Coeff of Cathleen 12.8 Plt Count 251 MPV 10.5 Immature Gran % (Auto) 0.200 Neut % (Auto) 84.4 H Lymph % (Auto) 9.4 L Garza % (Auto) 5.0 Eos % (Auto) 0.6 Baso % (Auto) 0.4 Absolute Neuts (auto) 11.9 H Absolute Lymphs (auto) 1.32 Nucleated RBC % 0 Sodium 140 Potassium 3.5 Chloride 112 H Carbon Dioxide 22.0 Anion Gap 6 BUN 8 Creatinine 0.77 Estim Creat Clear Calc 106.82 Est GFR (MDRD) Af Amer 112 Est GFR (MDRD) Non-Af 92 BUN/Creatinine Ratio 10.4 Glucose 104 Calcium 8.7 Total Bilirubin 1.00 AST 16 ALT 22 Alkaline Phosphatase 38 L Total Protein 6.9 Albumin 4.1 Globulin 2.8 Albumin/Globulin Ratio 1.5 Lipase 19 Serum , Qual NEGATIVE Radiography Diagnostic Testing: Clinical Impression(s) from Imaging Studies Abdomen/Pelvis CT 10/26/23 15:07 IMPRESSION: Normal enhanced CT of the abdomen and pelvis. Electronically Signed: Lj Cavazos MD at 17:32 EDT , Discharge Plan Triage Chief Complaint: Abd Pain ED Provider: Marcus Naqvi Dx/Rx/DC Orders Clinical Impression: Diarrhea, Abdominal pain Instructions: ED Abdominal Pain Unkn Cause Fem, ED Diarrhea, Unknown Cause Prescriptions: No Action dextroamphetamine-amphetamine 20 mg capsule,extended release 24hr 1 cap PO DAILY ondansetron 4 mg tablet,disintegrating 4 mg PO Q8H PRN PRN (Reason: Nausea) Qty: 10 0RF omeprazole 40 mg capsule,delayed release(DR/EC) 40 mg PO BID Qty: 60 1RF Primary Care Provider: ARCHANA BRIGGS Referrals: Herberth Wild DO [Med Staff - Active Staff] - As soon as possible ARCHANA BRIGGS [employer]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
[2023-10-26] MEDS: 0.9% Normal Saline (1000mL) 1,000 ML 999 ML IV (15:35)
[2023-10-26 15:38] LABS: Absolute Lymphocyte Count 1.32 X10^3/uL (0.83-4.51); Absolute Neutrophil Count 11.9 X10^3/uL (2.0-7.7); Basophil# 0.05 X10^3/uL; Basophil% 0.4 % (0-1); Eosinophil# 0.08 X10^3/uL; Eosinophils% 0.6 % (0-5); Hematocrit 39.8 % (37-47); Hemoglobin 13.4 g/dL (12.0-15.0); Lymphocyte # 1.32 X10^3/ul (0.83-4.51); Lymphocyte % 9.4 % (19-41); Mean Corp Hgb Conc 33.7 g/dL (32-36); Mean Corpuscular Hgb 31.3 pg (27.0-32.0); Mean Platelet Vol. 10.5 fl (6.2-12.0); Monocyte# 0.71 X10^3/uL; NRBC Flagged by Analyzer 0 % (0-5); Neutrophil # 11.89 X10^3/uL (2.7-7.7); Neutrophil % 84.4 % (47-70); Platelet Count 251 K/mm3 (150-450); RBC Distribution Width CV 12.8 % (11.6-14.6); RBC Distribution Width SD 43.5 fl (35.1-43.9); Red Blood Count 4.28 M/mm3 (4.2-5.4); White Blood Count 14.1 K/mm3 (4.4-11.0)
[2023-10-26 15:53] LABS: Internal QC Validated? YES +Cl - CLEAR BKGD; Pregnancy, Serum, hCG Quali. NEGATIVE Negative
[2023-10-26 15:57] VITALS: BP 119/65; PULSE 90; RESP 16; O2SAT 98
[2023-10-26 16:04] LABS: ALB/GLOB Ratio 1.5 RATIO (0.9-2.4); AST(SGOT) 16 U/L (15-37); Alanine Aminotransfer ALT/SGPT 22 U/L (13-56); Albumin, Serum 4.1 g/dL (3.2-5.0); Alkaline Phosphatase 38 U/L (45-117); Anion Gap 6 (5-15); BUN 8 mg/dL (7-18); BUN/Creat Ratio 10.4 RATIO (10-20); Calcium,Total 8.7 mg/dL (8.5-10.1); Chloride 112 mmol/L (98-107); Creatinine, Serum 0.77 mg/dL (0.55-1.02); EST Glomerular Filtration Rate 92 mL/min (>60); Est Glom Filt Rate - Afr Amer 112 mL/min (>60); Estimated Creatinine Clearance 106.82 ml/min; Globulin 2.8 g/dL (2.2-4.2); Glucose 104 mg/dL (74-106); Lipase 19 U/L (13-75); Potassium 3.5 mmol/L (3.5-5.1); Protein, Total 6.9 g/dL (6.4-8.2); Sodium Level 140 mmol/L (136-145)
[2023-10-26 17:00] VITALS: BP 109/65; PULSE 78; RESP 16; O2SAT 98
== END 2023-10-26 17:57 | disposition home or self-care (01) ==
PROVIDERS: Emergency Provider Emergency Medicine; PCP Nurse Practitioner Family; Visit Provider Emergency Medicine
DX: R10.9 Unspecified abdominal pain (principal); R19.7 Diarrhea, unspecified; K21.9 Gastro-esophageal reflux disease without esophagitis; Z79.899 Other long term (current) drug therapy; Z98.51 Tubal ligation status; Z90.49 Acquired absence of other specified parts of digestive tract; F17.210 Nicotine dependence, cigarettes, uncomplicated
CPT/HCPCS: 96360; 74177; 80048; 80053; 80076; 83690; 84703; 85025; 96361; 96374; 99282; J7030; Q9967; A4216; J2405

== ENCOUNTER 2025-03-11 15:59 | Emergency (ER) | payer SELFPAY ==
[2025-03-11 16:00] VITALS: BP 138/91; PULSE 98; RESP 22; TEMP 36.7; O2SAT 100; BMI 31.3
--- NOTE | 2025-03-11 16:27 | CT_ITS ---
PROCEDURE: ABDOMEN/PELVIS WITHOUT CONT 03/11/2025 REASON FOR EXAM: KIDNEY STONE TECHNIQUE: Procedure Code: CTABDPEL Modality: CT Procedure: ABDOMEN/PELVIS WITHOUT CONT Noncontrast technique limits evaluation of the abdominal and pelvic viscera. Coronal and Sagittal reconstruction series were provided. One or more dose reduction techniques were used (e.g., Automated exposure control, adjustment of the mA and/or kV according to patient size, use of iterative reconstruction technique). COMPARISON: CT abdomen and pelvis 10/26/2023 FINDINGS: Lung bases: Unremarkable. Liver: Mildly enlarged measuring up to 19.3 cm craniocaudally. No obvious hepatic mass. Gallbladder: The gallbladder is again not visualized, likely surgically absent. No biliary ductal dilatation. Spleen: Normal size. Pancreas: Normal size. No surrounding inflammation. Adrenals: Unremarkable Kidneys: No urolithiasis. No hydronephrosis. Bladder: Unremarkable. Reproductive Organs: Normal uterine size and contour. Ovaries are unremarkable. Bowel: No bowel obstruction. Appendix: Normal. Lymph nodes: Unremarkable. Vasculature: The abdominal aorta and IVC contours are normal. Noncontrast technique limits evaluation. Peritoneum / Retroperitoneum: No free fluid or air. Bones: No acute fractures. CT/Abdomen/Pelvis without Cont IMPRESSION: NO ACUTE FINDINGS AT THE ABDOMEN OR PELVIS ON NONCONTRAST CT. Reading [facility]
[2025-03-11] MEDS: 0.9% Normal Saline (1000mL) 1,000 ML 250 ML IV (16:44)
[2025-03-11 16:55] LABS: Mucous, Urine 0 SEEN /hpf (<or=2+)
[2025-03-11 16:59] LABS: Hematocrit 40.1 % (37-47); Hemoglobin 13.8 g/dL (12.0-15.0); Immature Granulocytes Count 0.030 X10^3/uL (0.0-0.0); Mean Corp Hgb Conc 34.4 g/dL (32-36); Mean Corpuscular Volume 92.0 fL (81-99); Mean Platelet Vol. 10.6 fl (6.2-12.0); NRBC Flagged by Analyzer 0 % (0-5); Platelet Count 318 K/mm3 (150-450); RBC Distribution Width CV 11.9 % (11.6-14.6); RBC Distribution Width SD 40.0 fl (35.1-43.9); Red Blood Count 4.36 M/mm3 (4.2-5.4); White Blood Count 9.4 K/mm3 (4.4-11.0)
--- NOTE | 2025-03-11 17:04 | EDS_ITS ---
HPI History of Present Illness Chief Complaint: Flank Pain Detail of Chief Complaint: Right flank pain is 34 days ago and is worse Informant: patient Onset/Context/Timing Onset: Days (March 07) Context: Sudden Onset Timing: Continuous and Waxes and wanes Quality: Pain Location: . Right flank radiating anteriorly Current Severity: Severe Maximum Severity: Severe Worsened by: There is a musculoskeletal component. Relieved by: Nothing Associated Symptoms Associated Symptoms: Nausea Narrative Narrative: Patient is a 34-year-old female. She presents with abrupt onset of right flank pain that now radiates anteriorly waxed and wanes in its intensity and is described as severe. There is no family or personal history of renal or urete rolithiasis. She does have history of ovarian cyst. She denies dysuria, frequency, urgency or hematuria. There is no history of direct or indirect trauma. She has not noted a rash. She denies fever, chills or night sweats. She denies weight gain or weight loss. She denies intolerance to greasy or fried foods. She denies black or maroon-colored stool. She has not had pain like this before. She does have a history of GERD, pancreatitis, gastritis with reflux and cannabis hyperemesis syndrome. During the history portion patient stated fuck numerous times. Prior similar symptoms: No Recent Illness/Hospitalization: No PFSH PFSH Medical History Anxiety Alcohol use Excessive bleeding Easy bruising Migraine headache History of ulceration Gastric reflux Smoker History of pain when walking Stomach ulcer GERD (gastroesophageal reflux disease) Home Medications ?Medication ?Instructions ?Recorded ?Last Taken ?Type omeprazole 40 mg capsule,delayed 40 mg PO BID #60 caps 06/10/23 Unknown Rx release dextroamphetamine-amphetamine ER 1 cap PO DAILY Unknown History 20 mg 24hr capsule,extend release ondansetron 4 mg disintegrating 4 mg PO Q8H PRN PRN Na usea #10 tabs 10/26/23 Unknown Rx tablet naproxen 500 mg tablet 500 mg PO BID #14 tabs 03/11 Unknown Rx Allergy/AdvReac Type Severity Reaction Status Date / Time latex Allergy Rash Verified 03/11/25 16:01 meperidine HCl (From Demerol) Allergy Low blood Verified 03/11/25 16:01 pressure Surgical History S/P cholecystectomy History of tubal ligation Social History household members: children Smoking Status: Current every day smoker tobacco type: cigarettes alcohol intake: current alcohol intake frequency: a few times a week Alcohol type: beer substance use type: marijuana ROS ROS ED Constitutional Constitutional ED: Denies chills, fever(s), subjective, sweats or weight loss Eyes Eyes: Denies blurry vision or change in vision ENT ENT ED: Denies ear pain, rhinorrhea or sore throat Cardiovascular Cardiovascular: Denies chest pain, orthopnea, palpitations, paroxysmal nocturnal dyspnea or racing heartbeat Respiratory/Chest Respiratory/Chest: Denies cough, dyspnea, dyspnea on exertion, orthopnea or paroxysmal nocturnal dyspnea Gastrointestinal Gastrointestinal: Reports abdominal pain, nausea and vomiting; Denies constipation, diarrhea or melena Genitourinary Genitourinary ED: Reports LMP (females 10-50) Details: Comment: (Uncertain. Sexually active in no form of control.); Denies dysuria, hematuria or urinary frequency Musculoskeletal Musculoskeletal: Denies arthralgias, myalgias or neck pain Integumentary Denies abscess, Abrasions or rash Neurologic Neurologic: Denies headache(s) or paresthesias Psychiatric Psychiatric: Reports anxiety; Denies depression Endocrine Endocrinology: Denies cold intolerance or heat intolerance Hematologic/Lymphatic Hematologic/Lymphatic: Reports systems reviewed and no addt'l complaints, except as documented EXAM Physical Exam Const Vital Signs: 03/11/25 16:00 03/11/25 18:13 Temperature 98.1 F Temperature Source Oral Pulse Rate 98 69 Respiratory Rate 22 H 16 Blood Pressure 138/91 H 110/78 Blood Pressure Mean 106 88 Pulse Ox 100 97 Oxygen Delivery Method Room Air Room Air Positive well nourished and well developed Constitutional Narrative: Patient is obvious discomfort. She is standing up and holding herself up against the wall. Blood pressure slightly elevated. She is tachypneic General Appearance ED: well developed; Negative for pallor HEENT Reports moist mucous membranes HEENT Narrative: Head is atraumatic and normocephalic. Ears normal. Eyes PERRL and EOMs intact bilaterally General Eye ED: Negative for pale conjunctiva or scleral icterus Neck no lymphadenopathy, supple and no JVD Chest Wall inspection of chest normal and palpation of chest normal Resp normal respiratory effort and clear to auscultation bilaterally Cardio regular rate, regular rhythm, S1 normal heart sound, S2 normal heart sound and no murmurs GI normal to inspection, nondistended, normoactive bowel sounds, non-distended and no masses; Negative for non-tender or hepatosplenomegaly Auscultation: normoactive bowel sounds Palpation: soft and tender RLQ; Negative for guarding, splenomegaly or rebound tenderness present Back/Spine no CVA tenderness Extremity normal to inspection General Extremety ED: Negative for edema or tenderness General Extremity: Negative for edema Neuro oriented x3 and CN's II-XII intact bilaterally Sensorium / Orientation: alert Psych mental status grossly normal Skin no rashes or lesions noted, no wounds and skin turgor normal General Skin Exam: elasticity normal; Negative for jaundice or pallor MDM MDM MDM Narrative Medical decision making narrative: Differential diagnosis would include atypical presentation of cholelithiasis, renal ureterolithiasis, pyelonephritis, pain of unknown etiology, muscular pain. Workup included CBC, BMP UA and test as well as CT of the abdomen pelvis without contrast. CT of the abdomen was obtained without contrast because of concern for ureterolithiasis. Of note she had tenderness in the right lower quadrant Lab Data Attestation: I reviewed the patient's lab results. Lab results narrative: CBC is normal. Electrolyte panel is normal. test is negative. Urine is essentially normal. Labs: Laboratory Results - last 24 hr 03/11/25 16:40 WBC 9.4 RBC 4.36 Hgb 13.8 Hct 40.1 MCV 92.0 MCH 31.7 MCHC 34.4 RDW Std Deviation 40.0 RDW Coeff of Cathleen 11.9 Plt Count 318 MPV 10.6 Immature Gran % (Auto) 0.300 Neut % (Auto) 65.1 Lymph % (Auto) 25.6 Hendricks % (Auto) 6.1 Eos % (Auto) 2.2 Baso % (Auto) 0.7 Absolute Neuts (auto) 6.1 Absolute Lymphs (auto) 2.40 Nucleated RBC % 0 Sodium 136 Potassium 3.9 Chloride 104 Carbon Dioxide 18.6 L Anion Gap 14 BUN 12 Creatinine 0.66 L Estim Creat Clear Calc 125.04 Est GFR (MDRD) Non-Af 118 BUN/Creatinine Ratio 17.8 Glucose 100 H Calcium 9.7 Serum , Qual NEGATIVE Urine Color Straw Urine Clarity Clear Urine pH 6.5 Ur Specific [place] 1.010 Urine Protein 15 H Urine Glucose (UA) Normal Urine Ketones Negative Urine Occult Blood Negative Urine Nitrite Negative Urine Bilirubin Negative Urine Urobilinogen Normal Ur Leukocyte Esterase Negative Urine RBC 0-5 SEEN Urine WBC 0 SEEN Ur Squamous Epith Cells 0-5 SEEN Urine Bacteria 0 SEEN Urine Mucus 0 SEEN Radiography Diagnostic Testing: Clinical Impression(s) from Imaging Studies Abdomen/Pelvis CT 03/11/25 16:27 IMPRESSION: NO ACUTE FINDINGS AT THE ABDOMEN OR PELVIS ON NONCONTRAST CT. Reading Location: [facility] I agree with radiologist to potation of CT with no abnormality. Treatment and Re-Evaluation :: Patient was told her workup was negative. She stated fuck patient states or something wrong. I informed the patient that her workup is negative. With her having tenderness over her back and movement causing her pain this is probably musculoskeletal. She again proclaimed fuck no way . Patient states my urine is normally cloudy is not cloudy because I been drinking water. I reiterated that her urine is negative and there is no evidence infection and that her CAT scan did not show any abnormality and her blood work is unremarkable. She was asked if she had any questions were secondary for her. She replied I guess I am going home . Patient was offered anti-inflammatory. She states she cannot take anything. She was informed that I gave her ketorolac which is a anti- inflammatory. Discharge Plan Triage Chief Complaint: Flank Pain ED Provider: Dennis Heredia Dx/Rx/DC Orders Clinical Impression: Acute right flank pain, Abdominal tenderness, right lower quadrant, Elevated blood pressure reading Instructions: ED Flank Pain with Uncertain Cause Prescriptions: New naproxen 500 mg tablet 500 mg PO BID Qty: 14 0RF No Action dextroamphetamine-amphetamine 20 mg capsule,extended release 24hr 1 cap PO DAILY ondansetron 4 mg tablet,disintegrating 4 mg PO Q8H PRN PRN (Reason: Nausea) Qty: 10 0RF omeprazole 40 mg capsule,delayed release(DR/EC) 40 mg PO BID Qty: 60 1RF Primary Care Provider: Care Physician,No Primary Referrals: Care Physician,No Primary [Primary Care Provider, Medical] [facility] [Non-Staff, Medical] - 1-2 Days if not improving Print Language: Mohawk Disposition Disposition: Home, Self Care
[2025-03-11 17:16] LABS: Internal QC Validated? YES +Cl - CLEAR BKGD; Pregnancy, Serum, hCG Quali. NEGATIVE Negative; Record Kit Lot#, Serum Preg. 964736
[2025-03-11 17:41] LABS: Anion Gap 14 (5-15); BUN 12 mg/dL (4-19); BUN/Creat Ratio 17.8 RATIO (10-20); Calcium,Total 9.7 mg/dL (7.6-11.0); Carbon Dioxide 18.6 mmol/L (21.0-32.0); Chloride 104 mmol/L (98-108); Estimated Creatinine Clearance 125.04 ml/min (50-250); Glucose 100 mg/dL (70-99); Potassium 3.9 mmol/L (3.3-5.1)
[2025-03-11 17:58] LABS: Color, Urine Straw (Yellow); Glucose, Dipstick Normal (Normal); Ketone-Dipstick Negative (Negative); Leukocyte Esterase-Dipstick Negative /ul (Negative); Nitrite-Dipstick Negative (Negative); Occult Blood-Urine Negative /ul (Negative); Protein-Dipstick 15 mg/dl (Negative); Specific Gravity, Urine 1.010 (1.002-1.030); Urine Bilirubin Dipstick Negative (Negative)
[2025-03-11 18:13] VITALS: BP 110/78; PULSE 69; RESP 16; O2SAT 97
--- NOTE | 2025-03-11 18:13 | NURSING ---
Pt remains in severe pain but has refused escalation of pain management twice d/t the fact that she is starting [employer] and she has to take a drug test tomorrow.
[2025-03-11 18:33] LABS: Red Blood Cells-Urine 0-5 SEEN /hpf (0-5); Squamous Epithelial Cells - UA 0-5 SEEN /hpf (5-10)
--- NOTE | 2025-03-11 19:24 | ED.RN ---
Addendum entered by Marie Garrido 03/11/25 19:28: This RN gave pt her discharge papers. Pt took them and ambulated out of department. Original Note: Pt not in room when this RN went in to discharge her. This RN called pt's cell phone. Pt stated she left and took her own IV out, stating it's fine. This RN asked pt to return so staff could visualize the IV site. Pt agreed to come back. This RN waited at ED door, visualized IV site when pt returned. Pt had taped paper towel to site, no active bleeding noted. This RNB
== END 2025-03-11 19:36 | disposition home or self-care (01) ==
PROVIDERS: Emergency Provider Emergency Medicine; Visit Provider Emergency Medicine
DX: R10.813 Right lower quadrant abdominal tenderness (principal); F17.210 Nicotine dependence, cigarettes, uncomplicated; R03.0 Elevated blood-pressure reading, without diagnosis of hypertension; K21.9 Gastro-esophageal reflux disease without esophagitis; Z90.49 Acquired absence of other specified parts of digestive tract; Z98.51 Tubal ligation status; R11.2 Nausea with vomiting, unspecified
CPT/HCPCS: 74176; 80048; 81001; 84703; 85025; 96361; 96374; 96375; 99283; J2405